=== PATIENT | female | born 1945 | race Caucasian/White ===

== ENCOUNTER 2019-08-08 13:27 | Outpatient (CLI) | payer MEDICARE, BC, SELFPAY ==
--- NOTE | ~2019-08-08 | MM_ITS ---
EXAMINATION: MM screening papi BI w harsh HISTORY: Screening mammogram TECHNIQUE: Craniocaudal and mediolateral oblique 3-D tomosynthesis images were obtained and synthetic 2-D images were generated. CAD analysis was submitted and interpreted. COMPARISON: 04/20/2018 diagnostic left digital mammogram 04/12/2018 bilateral digital screening mammogram 12/31/2016 diagnostic right digital mammogram and limited right breast ultrasound 12/14/2016 digital screening mammogram BREAST PARENCHYMAL COMPOSITION: There are scattered areas of fibroglandular density. FINDINGS: 2 biopsy markers are present in the right and on the right; history of prior benign right b reast biopsy. Bilateral benign calcifications. There is no evidence of suspicious mass, calcification, or architectural job captain ural distortion to suggest malignancy in either breast. There has been no suspicious interval change. IMPRESSION: 1. No mammographic evidence of malignancy. 2. Recommend routine screening mammography in one year. BI-RADS Category 2: Benign finding(s). Reviewed, dictated and finalized at location A. RITIES COUNSELOR
== END 2019-08-08 13:28 | disposition home or self-care (01) ==
LOC: ANHIMG 13:30
PROVIDERS: PCP Family Medicine; Visit Provider Obstetrics & Gynecology
DX: Z12.31 Encounter for screening mammogram for malignant neoplasm of breast (principal)
CPT/HCPCS: 77063; 77067

== ENCOUNTER → 2020-08-28 10:01 | Outpatient (CLI) | payer MEDICARE, BC, SELFPAY ==
--- NOTE | ~2020-08-28 | XR_ITS ---
EXAMINATION: XR chest 2V DATE: 08/28/2020 10:22 INDICATION: Cough. TECHNIQUE: Frontal and lateral views of the chest were obtained. COMPARISON: Chest single view 12/24/2017 FINDINGS: There is mild scarring at the lung apices. No pleural effusion or pneumothorax. The heart s ize is normal. Calcified right hilar lymph nodes are consistent with old granulomatous disease. There are surgical clips in right neck. IMPRESSION: 1. Mild scarring at the lung apices. Reviewed, dictated and finalized at location A. CTOR WORKFORCE MANAGEMENT
== END ==
PROVIDERS: PCP Family Medicine; Visit Provider Family Medicine
DX: R05 Cough (principal); R91.8 Other nonspecific abnormal finding of lung field
CPT/HCPCS: 71046

== ENCOUNTER → 2020-10-22 13:07 | Outpatient (CLI) | payer MEDICARE, BC, SELFPAY ==
--- NOTE | ~2020-10-22 | DEXA_ITS ---
Bone Density Report Name: Alayna Orourke Age: 75 Sex: Female Ethnicity: White Date of : 1945 Indication: postmenopausal; screening for osteoporosis; height loss; prior fracture; seizure disorder; hysterectomy; Referring Provider: RENETTA CHAPIN Study: Bone densitometry was performed. Exam Date: October 22, 2020 Accession number: [id number] Bone Density: Region BMD T-score Z-score Classification AP Spine (L1, L3, L4) 1.201 1.3 3.8 Normal Femoral Neck (Left) 0.630 -2.0 0.1 Osteopenia Total Hip (Left) 0.890 -0.4 1.4 Normal Femoral Neck (Right) 0.619 -2.1 0.0 Osteopenia Total Hip (Right) 0.793 -1.2 0.6 Osteopenia Total Hip Mean 0.842 -0.8 1.0 Normal World Health Organization criteria for BMD impression classify patients as: Normal (T-score at or above -1.0), Osteopenia (T-score between -1.0 and -2.5), or Osteoporosis (T-score at or below -2.5). 10-year Fracture Risk(1): Major Osteoporotic Fracture 18% Hip Fracture 4.2% Reported Risk Factors: [place] (), Neck BMD=0.619, BMI=36.5, previous fracture (1) FRAX(R) Version 3.08. Fracture probability calculated for an untreated patient. Fracture probability may be lower if the patient has received treatment. Clinical Information Provided by Patient: Has had a low trauma fracture Has used the following medications: Vitamin D, Calcium Has the following medical conditions: Any Seizure Disorders, Hysterectomy Patient maximum height was 66 Menopause Age: 40 No regular weight bearing exercise Drinks caffeinated beverages Onset of menses at age 12 Number of children 2 Impression: The patient has low bone mass, based on the Right Femoral Neck T-score. The patient has an estimated ten-year risk of hip fracture of 4.2% and an estimated ten-year risk of major fracture of 18%, based on the WHO FRAX algorithm. The patient has risk factors, including: previous fracture. Discussion: BONE DENSITY IS LOW AT ONE OR MORE SKELETAL SITES. THE PATIENT'S BMD AND CLINICAL RISK FACTORS CONTRIBUTE TO THIS PATIENT'S INCREASED RISK OF FRACTURE. This patient's lowest T-score is low at one or more skeletal sites. It meets the World Health Organization's (WHO) criteria for ?low bone mass? (T-score between -1.0 and -2.5). The patient's 10-year risk of hip fracture as calculated by FRAX exceeds the threshold where pharmacological therapy is recommended by the National Osteoporosis Foundation (NOF). However, all treatment decisions require clinical judgment and consideration of individual patient factors, including patient preferences, comorbidities, previous drug use, risk factors not captured in the FRAX model (e.g., frailty, falls, vitamin D deficiency, increased bone turnover, interval significant decline in bone density) and possible under or overestimation
--- NOTE | ~2020-10-22 | MM_ITS ---
EXAMINATION: MM screening papi BI w harsh HISTORY: Screening mammogram TECHNIQUE: Craniocaudal and mediolateral oblique 3-D tomosynthesis images were obtained and synthetic 2-D images were generated. CAD analysis was submitted and interpreted. COMPARISON: bilateral digital screening mammogram 04/20/2018 diagnostic left digital mammogram 04/12/2018 bilateral digital screening mammogram 12/31/2016 diagnostic right digital mammogram and limited right breast ultrasound 12/14/2016 bilateral digital screening mammogram BREAST PARENCHYMAL COMPOSITION: There are scattered areas of fibroglandular density. FINDINGS: There is a biopsy marker on the right; history of prior benign right breast biopsy. Scatter ed bilateral benign calcifications. There is no evidence of suspicious mass, calcification, or rl ectural distortion to suggest malignancy in either breast. There has been no suspicious interval posey ge. IMPRESSION: 1. No mammographic evidence of malignancy. 2. Recommend routine screening mammography in one year. BI-RADS Category 2: Benign finding(s). Reviewed, dictated and finalized at location A.
== END ==
PROVIDERS: PCP Family Medicine; Visit Provider Family Medicine
DX: Z12.31 Encounter for screening mammogram for malignant neoplasm of breast (principal); Z78.0 Asymptomatic menopausal state; M85.89 Other specified disorders of bone density and structure, multiple sites
CPT/HCPCS: 77063; 77067; 77080

== ENCOUNTER 2021-07-07 10:15 | Outpatient (CLI) | payer MEDICARE, BC, SELFPAY ==
--- NOTE | ~2021-07-07 | XR_ITS ---
XR elbow RT 2V DATE: 07/07/2021 10:44 INDICATION: Fall 3 weeks ago. Posterior elbow pain, swelling TECHNIQUE: AP and lateral views COMPARISON: 12/24/2017 right elbow FINDINGS: There is dorsal soft tissue swelling of the right elbow. Slight dorsal olecranon process sp ur. No fracture or dislocation or joint effusion is detected. No periosteal reaction or bone destruction. IMPRESSION: Dorsal soft tissue swelling; consider hematoma versus olecranon bursitis. Reviewed, dictated and finalized at location J. SPACE PHYSIOLOGICAL TECHNICIAN IMPRESSION: Dorsal soft tissue swelling; consider hematoma versus olecranon bur sitis.
== END 2021-07-07 10:16 | disposition home or self-care (01) ==
LOC: ANHIMG 10:22
PROVIDERS: PCP Family Medicine; Visit Provider Nurse Practitioner Gerontology
DX: M25.521 Pain in right elbow (principal); M79.89 Other specified soft tissue disorders
CPT/HCPCS: 73070

== ENCOUNTER 2021-10-21 11:06 | Observation (INO) | payer MEDICARE, BC, SELFPAY ==
[2021-10-21] VITALS (8 sets, daily range): BP systolic 119–145; BP diastolic 52–80; PULSE 71–88; RESP 12–20; TEMP 36–36.9; O2SAT 95–99; BMI 34.0
--- NOTE | 2021-10-21 | ECHO_ITS ---
Patient Info Name: Alayna Stoner Leveling Age: 76 years : 1945 Gender: Female Ht: 65 in Wt: 205 lbs BSA: 2.10 m2 HR: 72 bpm BP: 126 / 62 mmHg Heart Rhythm: Sinus Rhythm Technical Quality: Fair Exam Date: 10/21/2021 4:12 PM Exam Location: [facility] Patient Status: Outpatient Admit Date: 10/21/2021 Staff Ordering Physician: Baylee Pelayo APRN [employer] Solution Architect: Nely Swanson RDCS Attending Provider: Ana Luisa Ham MD Referring Physician: Gita KELLY; Exam Type: CA echo doppler color flow Study Info Indications - TIA Complete two-dimensional, color flow and Doppler transthoracic echocardiogram is performed. Summary 1. Complete two-dimensional, color flow and Doppler transthoracic echocardiogram is performed. 2. Left ventricular chamber dimension is normal. 3. Left ventricular systolic function is hyperdynamic, estimated at >70%. 4. There is mildly increased left ventricular wall thickness. 5. The left ventricular diastolic function is grade I diastolic dysfunction. 6. E/e' 24 is elevated. 7. Left atrial chamber dimension is moderately enlarged. 8. The aortic valve is possibly bicuspid. 9. There is moderate aortic valve sclerosis. 10. There is mild to moderate aortic valve stenosis with a peak velocity of 258 cm/s, mean gradient of 15 mmHg, and aortic valve area of 1.4 cm2. 11. The mitral valve has mildly calcified annulus. 12. There is trace tricuspid valve regurgitation. 13. No pulmonary hypertension, estimated pulmonary arterial systolic pressure is 36 mmHg. Left Ventricle E/e' 24 is elevated. Left ventricular chamber dimension is normal. Left ventricular systolic function is hyperdynamic, estimated at >70%. There is mildly increased left ventricular wall thickness. The left ventricular diastolic function is grade I diastolic dysfunction. Right Ventricle Right ventricular systolic function is normal and with normal TAPSE 2.2 cm. Right ventricular chamber dimension is normal. Left Atria Left atrial chamber dimension is moderately enlarged. Right Atria Right atrial chamber dimension is normal. Aortic Valve The aortic valve is possibly bicuspid. There is moderate aortic valve sclerosis. There is mild to moderate aortic valve stenosis with a peak velocity of 258 cm/s, mean gradient of 15 mmHg, and aortic valve area of 1.4 cm2. There is no aortic valve regurgitation. Pulmonic Valve There is no pulmonic regurgitation. Mitral Valve The mitral valve has mildly calcified annulus. There is no mitral valve stenosis. There is no mitral valve regurgitation. Tricuspid Valve There is trace tricuspid valve regurgitation. No pulmonary hypertension, estimated pulmonary arterial systolic pressure is 36 mmHg. Pericardium/Pleural There is no pericardial effusion. Inferior Vena Cava Normal inferior vena cava with >50% collapse upon inspiration consistent with normal right atrial pressure, 5 mmHg. Aorta The aortic root size at the sinus of Valsalva is normal. Left Ventricular Outflow Tract Name Value Normal LVOT 2D LVOT Diameter 2.0 cm LVOT Doppler LVOT Peak
--- NOTE | ~2021-10-21 | CT_ITS ---
EXAMINATION: CTA brain carotid DATE: 10/21/2021 13:36 INDICATION: Stroke. Dizziness. TECHNIQUE: Computed tomographic angiography (CTA) of the head was performed without and with 100 mL O mnipaque-350 intravenous contrast. CTA of the neck was performed with intravenous contrast. Automated exposure control and iterative reconstruction technique were employed. The dose-length product was 1 697.67 mGy-cm. Maximum intensity projection and volume rendered 3D-reconstructions were created by ruth collins technologist on a separate workstation. COMPARISON: Head CT 06/22/2019, brain MRI 09/20/2011 FINDINGS: HEAD CTA: There is no intracranial hemorrhage, acute infarction, or abnormal intracranial mass lesion . There is a small old infarct in right cerebellum. The ventricles are normal in size. There is mild mucosal thickening in the paranasal sinuses. There are small bilateral mastoid effusions. There are l ikely changes of ocular lens replacement surgeries. Left vertebral artery is dominant. There is moder ate stenosis of intracranial right vertebral artery. There is no significant stenosis of basilar thiago ry or the posterior cerebral arteries. There is mild stenosis of the intracranial internal carotid ar teries. There is no significant stenosis of the anterior or middle cerebral arteries. Anterior commun icating artery is normal. The posterior communicating arteries are normal. There is no aneurysm. NECK CTA: There is mild emphysema. There is mild scarring at the lung apices. Calcified right hilar a nd mediastinal lymph nodes are consistent with old adenomatous disease. A tracheostomy is noted. Ther e are changes of laryngectomy. There are no pathologically enlarged lymph nodes. There is plaque in t he proximal internal carotid arteries. Stenosis of the internal carotid arteries distal to the bulbs may be secondary to radiation therapy. There is 49% stenosis of the proximal right internal carotid a rtery relative to normal distal artery lumen diameter (NASCET criteria). There is 51% stenosis of the proximal left internal carotid artery relative to normal distal artery lumen diameter. There is mode rate stenosis of the proximal vertebral arteries. There is mild cervical spondylosis. There is mild c hronic anterior wedging of T2 vertebral body. IMPRESSION: 1. Small old infarct in right cerebellum. 2. Moderate stenosis of the vertebral arteries. 3. 49 % stenosis of the proximal right internal carotid artery relative to normal distal artery lumen diameter (NASCET criteria). 4. 51% stenosis of the proximal left internal carotid artery relative to normal distal artery lumen d iameter. Reviewed, dictated and finalized at location A. IMPRESSION: 1. Small old infarct in right cerebellum. 2. Moderate stenosis of the vertebral arteries. 3. 49 % stenosis of the proximal right internal carotid artery relative to norm al distal artery lumen diameter (NASCET criteria). 4. 51% stenosis of the proximal left internal carotid artery relative to normal distal artery lumen diameter.
--- NOTE | ~2021-10-21 | XR_ITS ---
EXAMINATION: XR chest 2V DATE: 10/21/2021 13:30 INDICATION: Stroke symptoms. TECHNIQUE: Frontal and lateral views of the chest were obtained. COMPARISON: Chest 2 views 08/28/2020 FINDINGS: There is no pneumonia, pleural effusion, or pneumothorax. The heart size is normal. Calcifi ed right hilar lymph nodes are consistent with old granulomas disc disease. There are surgical clips in right neck. There is an old healed fracture of left clavicle. Surgical clips in the right upper qu adrant are likely from cholecystectomy. IMPRESSION: 1. No acute cardiopulmonary disease. Reviewed, dictated and finalized at location A.
--- NOTE | 2021-10-21 11:12 | ECG_ITS ---
Measurements Intervals [place] Rate: 81 P: 43 HI: 161 QRS: 24 QRSD: 98 T: 31 QT: 377 QTc: 438 Interpretive Statements SINUS RHYTHM NO PREVIOUS ECG AVAILABLE FOR COMPARISON Electronically Signed On 10-21-2021 13:50:05 CDT by Suzy Randolph M.D.
[2021-10-21 12:50] LABS: Basophils Percent Auto 0.4 % (0.2-1.2); Eosinophils Absolute Auto 0.1 K/mm3 (0-0.3); Eosinophils Percent Auto 2.5 % (0-4.4); Hemoglobin 12.2 g/dL (12.0-15.0); Immature Granulocyte Absolute 0.02 K/mm3 (0.00-0.031); Immature Granulocyte Percent A 0.4 % (0-0.5); Lymphocytes Percent Auto 20.1 % (18.3-44.2); Mean Corpuscular HGB Conc 32.1 g/dl (32-36); Mean Corpuscular Hemoglobin 30.3 pg (26-34); Mean Corpuscular Volume 94.5 fl (80-100); Mean Platelet Volume 9.7 fl (7.4-10.4); Monocytes Absolute Auto 0.3 K/mm3 (0.1-0.6); Monocytes Percent Auto 6.7 % (2.6-8.5); Neutrophils Absolute Auto 3.1 K/mm3 (1.3-6.7); Neutrophils Percent Auto 69.9 % (45.5-73.1); Platelet Count Result 145 k/mm3 (150-375); Red Blood Count 4.02 M/mm3 (4.2-5.4); Red Cell Distribution Width 12.5 % (11.5-14.5); White Blood Count 4.5 K/mm3 (4.5-10.0)
[2021-10-21 13:00] LABS: Prothrombin Time 12.3 Seconds (11.1-14.7)
[2021-10-21 13:01] LABS: Partial Thromboplastin Time 27.3 SECONDS (22.3-36.8)
[2021-10-21 13:02] LABS: Alanine Aminotransferase 19 U/L (4-35); Albumin Level 4.3 g/dL (3.5-5.1); Alkaline Phosphatase 113 U/L (38-126); Anion Gap 5 mmol/L (8-16); Aspartate Amino Transferase 29 U/L (14-36); Bilirubin,Total 0.5 mg/dL (0.2-1.3); Blood Urea Nitrogen 18 mg/dL (7-17); Carbon Dioxide 35 mmol/L (22-30); Chloride 101 mmol/L (98-107); Estimated CRCL calculation 66 ml/min; Estimated Glomerular Filt Rate > 60; Glucose 116 mg/dL (65-110); Potassium 3.9 mmol/L (3.4-5.0); Sodium 141 mmol/L (137-145)
[2021-10-21 13:13] LABS: Troponin I < 0.012 ng/mL (0.000-0.034)
[2021-10-21 13:30] LABS: Add Urine Microscopic? NO; Appearance Urine Clear (Clear); Bilirubin Urine Negative (Negative); Blood Urine Negative (Negative); Color Urine Yellow (Yellow); Glucose Urine UA Negative (Negative); Ketones Urine Negative (Negative); Leukocyte Esterase Ur Negative LEU/UL (Negative); Nitrate Urine Negative (Negative); Protein Urine Negative (Negative); Specific Grav Ur 1.014 (1.001-1.035); Urobilinogen Urine Negative mg/dL (<2.0)
--- NOTE | 2021-10-21 14:17 | ED.DIZZY ---
HPI - Dizziness General Chief Complaint: Dizziness Stated Complaint: dizzy Time Seen by Provider: 10/21/21 12:01 History of Present Illness HPI Narrative: Patient is a 76-year-old female who presents ER with dizziness and leg weakness. Patient reports symptom onset was at 8:30 AM. She got up to start walking and she started feeling very off balance. She sat back down. She reports she has been unable to move both legs. She is dizzy with lower extremity weakness for about 90 minutes. No numbness or tingling. She reports she was having difficulty using her right arm as well. Unsure about her left arm. Patient uses a speaking valve from previous trach to speak but reports that her voice seemed off when she would try to talk to her daughter. Related Data Home Medications Medication Instructions Recorded Confirmed calcium carb-vit D3-minerals 600 tablet PO 07/24/20 09/30/21 mg calcium-200 unit tablet jsdcvktgacyd-pawligom-rxzibib-folic 1 tablet PO DAILY 07/24/20 09/30/21 acid 400 mcg-vit K1 20 mcg tablet vitamin B complex 1 tablet PO DAILY 07/24/20 09/30/21 Allergies Allergy/AdvReac Type Severity Reaction Status Date / Time No Known Allergies Allergy Verified 09/30/21 11:01 Review of Systems Review of Systems: All systems reviewed & are unremarkable except as noted in HPI and below Constitutional: Constitutional: Denies chills, Denies fever(s) and Denies weakness ENT: Reports dizziness, Denies nasal congestion and Denies sore throat Cardiovascular: Cardiovascular: Denies chest pain, Denies rapid heart rate and Denies radiating jaw, neck or arm pain Respiratory: Respiratory: Denies cough, Denies dyspnea and Denies wheezing Gastrointestinal: Gastrointestinal: Denies abdominal pain, Denies nausea and Denies vomiting Neurologic: Reports dizziness, Denies headache(s), Reports focal weakness and Denies numbness Comments: Slurred speech PMFSH Past Medical History Medical History Alcohol abuse Avitaminosis D Benign essential HTN ABHI (generalized anxiety disorder) Hypothyroidism (acquired) Iatrogenic hyperthyroidism Increased oropharyngeal secretions MDD (major depressive disorder), recurrent episode, moderate Seizures Throat cancer Throat cancer Tracheostomy in place Surgical History Surgical History H/O thyroidectomy Hx of hysterectomy Family History Family History Father Depression Sibling Depression Grandparent Cerebrovascular accident Social History Social History (Updated 09/30/21 @ 11:03 by Marisa Dougherty) Social History: Smoking packs per day: 1 Smoking cigarettes per day: 20.0 Years smoked: 20 Smoking pack-years: 20.00 Smoking status: Former smoker Tobacco type: cigarettes Second hand tobacco smoke exposure: No Smoking end date: 06/27/95 Alcohol intake: current Drinks per week: 3 Substance use: never Substance use type: does not use Gender identity (if verbalized by the patient): Female Sexual Orientation (if Verbalized by the Patient): Straight or Heterosexual Exam Narrative: GENERAL: Well-appearing, well-nourished, and in no acute distress. HEAD: Normocephalic, atraumatic. EYES: PERRL and EOMI. ENT: Mucous membranes moist. NECK: Tracheostomy with speaking valve. Chronic scarring. CHEST: Clear to auscultation. No respiratory distress. HEART: Regular rate and rhythm. No murmur heard. Normal peripheral pulses. ABDOMEN: Soft, nontender, nondistended. EXTREMITIES: Normal range of motion. No edema. SKIN: Warm, dry, no rash. NEURO: No upper or lower extremity drift. Cranial nerves II through XII intact. Sensation intact in upper and lower extremities. Alert and oriented x3. PSYCH: Normal mood and affect. Course Course Emergency Course: Resting comfortably, admit for observat
--- NOTE | 2021-10-21 15:01 | PM.IMHP ---
H&P: HPI History of Present Illness Date/Time: Patient was placed observation status for expected length of stay less than 23 hours for management, will plan to re-evaluate tomorrow for improvement. 10/21/21 15:01 Chief Complaint: Dizziness Narrative: Ms. Orourke is a 76-year-old female who presented emergency room with complaints of dizziness and bilateral lower extremity weakness. Patient states that this morning she was sitting in her chair during to get up to get a cup of coffee and her legs would not hold her up and the room was spinning around her. Patient states she then fell and had to have family members help her to a chair. Patient states that the dizziness and lower extremity weakness lasted for approximately 90 minutes. Patient states she feels that she could of had some weakness in her left upper extremity, because she tried to grab a chair when she was trying to get up and feels that she could not do so with her left arm. Patient states that she did have a similar episode of dizziness last week, but no weakness of any extremities. Patient denied any chest pain, abnormal shortness of breath, palpitations syncopal, or near syncopal episodes. Patient states she has chronic shortness of breath from COPD and Throat cancer with tracheostomy site. The patient states she has a known history throat cancer, hypertension, dyslipidemia, seizure disorder, and hypothyroidism. Review of Systems Review of Systems: A 12 point review of systems was completed patient all pertinent positive and negative per HPI the remainder are unremarkable. [facility] Past Medical History Medical History Alcohol abuse Avitaminosis D Benign essential HTN ABHI (generalized anxiety disorder) Hypothyroidism (acquired) Iatrogenic hyperthyroidism Increased oropharyngeal secretions MDD (major depressive disorder), recurrent episode, moderate Seizures Throat cancer Throat cancer Tracheostomy in place Surgical History Surgical History H/O thyroidectomy Hx of hysterectomy Family History Family History Father Depression Sibling Depression Grandparent Cerebrovascular accident Social History Social History (Updated 09/30/21 @ 11:03 by Marisa Dougherty) Social History: Smoking packs per day: 1 Smoking cigarettes per day: 20.0 Years smoked: 20 Smoking pack-years: 20.00 Smoking status: Former smoker Tobacco type: cigarettes Second hand tobacco smoke exposure: No Smoking end date: 06/27/95 Alcohol intake: current Drinks per week: 3 Substance use: never Substance use type: does not use Gender identity (if verbalized by the patient): Female Sexual Orientation (if Verbalized by the Patient): Straight or Heterosexual Meds Home Medications and Allergies Home Medications Medication Instructions Recorded Confirmed Type calcium carb-vit D3-minerals 600 tablet PO 07/24/20 09/30/21 History mg calcium-200 unit tablet hewmgjlajcaz-gfspknlq-zmrhbbi-folic 1 tablet PO DAILY 07/24/20 09/30/21 History acid 400 mcg-vit K1 20 mcg tablet vitamin B complex 1 tablet PO DAILY 07/24/20 09/30/21 History cholecalciferol (vitamin D3) 125 125 mcg PO DAILY #90 cap 10/23/20 09/30/21 Rx mcg (5,000 unit) capsule budesonide 160 mcg-glycopyr 9 2 inh INHALATION BID #10.7 g 02/20/21 09/30/21 Rx mcg-formot 4.8 mcg/actuation HFA inhaler lamotrigine 100 mg tablet 100 mg PO BID #180 tablet 02/20/21 09/30/21 Rx lamotrigine 200 mg tablet 200 mg PO TID #360 tablet 02/20/21 09/30/21 Rx omeprazole 40 mg capsule,delayed 40 mg PO BID #180 cap 02/20/21 09/30/21 Rx release paroxetine HCl 25 mg 25 mg PO DAILY #90 tablet 02/20/21 09/30/21 Rx tablet,extended release 24 hr rosuvastatin 5 mg tablet 5 mg PO DAILY #90 tablet 02/20/21 09/30/21 Rx levothyroxine 200 mcg tablet 200 mc
[2021-10-21] MEDS: BENZONATATE 100 MG CAPSULE PO (21:40)
[2021-10-22] VITALS (14 sets, daily range): BP systolic 106–147; BP diastolic 50–65; PULSE 71–109; RESP 18–20; TEMP 35.8–36.8; O2SAT 90–98
[2021-10-22 05:42] LABS: Basophils Percent Auto 0.3 % (0.2-1.2); Eosinophils Absolute Auto 0.1 K/mm3 (0-0.3); Eosinophils Percent Auto 3.9 % (0-4.4); Hematocrit 36.3 % (37.0-47.0); Hemoglobin 11.7 g/dL (12.0-15.0); Immature Granulocyte Absolute 0.01 K/mm3 (0.00-0.031); Immature Granulocyte Percent A 0.3 % (0-0.5); Lymphocytes Absolute Auto 0.79 K/mm3 (0.9-3.2); Lymphocytes Percent Auto 21.9 % (18.3-44.2); Mean Corpuscular HGB Conc 32.2 g/dl (32-36); Mean Corpuscular Hemoglobin 30.7 pg (26-34); Mean Corpuscular Volume 95.3 fl (80-100); Mean Platelet Volume 10.2 fl (7.4-10.4); Monocytes Absolute Auto 0.3 K/mm3 (0.1-0.6); Monocytes Percent Auto 8.6 % (2.6-8.5); Neutrophils Absolute Auto 2.4 K/mm3 (1.3-6.7); Platelet Count Result 135 k/mm3 (150-375); Red Blood Count 3.81 M/mm3 (4.2-5.4); Red Cell Distribution Width 12.6 % (11.5-14.5); White Blood Count 3.6 K/mm3 (4.5-10.0)
[2021-10-22 05:50] LABS: Anion Gap 3 mmol/L (8-16); Blood Urea Nitrogen 15 mg/dL (7-17); Calcium 8.6 mg/dL (8.4-10.2); Carbon Dioxide 34 mmol/L (22-30); Chloride 101 mmol/L (98-107); Cholesterol 145 mg/dL (0-200); Estimated CRCL calculation 66 ml/min; Estimated Glomerular Filt Rate > 60; Glucose 98 mg/dL (65-110); HDL Direct 42 mg/dL; Sodium 138 mmol/L (137-145); Triglycerides 109 mg/dL (<150)
[2021-10-22 06:01] LABS: LDL Cholesterol Direct 56 mg/dL
[2021-10-22] MEDS: BENZONATATE 100 MG CAPSULE PO ×4 (08:02→20:47)
[2021-10-22] MEDS: ENOXAPARIN 40 MG/0.4 ML SYRINGE SUB-Q (08:02)
[2021-10-22] MEDS: ASPIRIN 81 MG ENTERIC TABLET PO (08:02)
[2021-10-22] MEDS: TRIAMTERENE 37.5 MG/HCTZ 25 MG (MAXZIDE) TABLET 2 TAB PO (10:07)
[2021-10-22] MEDS: THERAPEUTIC MULTIVITAMINS/MINERALS TAB (*BKC) 1 TABLET PO (10:07)
[2021-10-22] MEDS: LORazepam (*CRX) 1 MG TABLET PO ×3 (10:07→16:29)
[2021-10-22] MEDS: ROSUVASTATIN 5 MG TABLET PO (10:07)
[2021-10-22] MEDS: levETIRAcetam 250 MG TABLET 750 MG PO ×2 (10:08→20:46)
[2021-10-22] MEDS: POTASSIUM CHLORIDE 20 MEQ TABLET 40 MEQ PO (10:08)
[2021-10-22] MEDS: CYANOCOBALAMIN 500 MCG TABLET PO (10:08)
--- NOTE | 2021-10-22 10:28 | P.PNIM_ITS ---
Progress Note: A&P Assessment and Plan (1) Brain TIA: Code(s): G45.9 - Transient cerebral ischemic attack, unspecified Status: Acute Assessment and Plan: Patient provided additional history this morning, and that she has had 2 such episodes of lower extremity weakness and dizziness resulting in falls over the past week. She denies loss of consciousness. She denies orthostasis. 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 Patient was noted to have 49% stenosis of right proximal internal carotid artery and 50% stenosis of the left proximal internal carotid artery. * Echo did not comment on intra-atrial septum. * Start aspirin 81. * Lipid panel this a.m., continue statin therapy. * MRI: patient has tracheostomy with magnetic component and we are unable to safely MRI. * Neurology consulted, advised we initiate aspirin, plavix, with follow-up in [address] Beauchamp. He advised based on patient's symptoms and normal echo, TIA was likely in the posterior circulation. * D/C tomorrow w/ follow up. (2) Aortic stenosis due to bicuspid aortic valve: Code(s): Q23.0 - Congenital stenosis of aortic valve; Q23.1 - Congenital insufficiency of aortic valve Status: Acute Assessment and Plan: * 10/21 echo showed: LVEF is 70% (hyperdynamic); aortic valve is possibly bicuspid, moderate AV sclerosis, mild to moderate aortic valve stenosis with peak velocity of 258 centimeters/seconds, mean gradient of 15 mmHg, and AV area of 1.4 cm2; left atrial chamber dimension is moderately enlarged. * Patient does not follow with Cardiology currently, which I advised she establish care, * Consult to cardiology. * She denies dyspnea with exertion, sharri syncope, or family history of sudden cardiac /known bicuspid valves. (3) Seizures: Code(s): R56.9 - Unspecified convulsions Status: Acute Assessment and Plan: * Patient states she has not recently had any seizures and she takes all medications without any difficulty. * She follows with Neurology at [facility]. * Will continue home lamotrigine and levetiracetam. (4) Benign essential HTN: Code(s): I10 - Essential (primary) hypertension Status: Acute Assessment and Plan: * Continue home antihypertensive regimen. * Patient is normotensive today, will continue to monitor. * Patient is mildly hypokalemic, however she is on a potassium-sparing diuretic, and takes potassium. We will continue to monitor her potassium. (5) History of throat cancer: Code(s): Z85.819 - Personal history of malignant neoplasm of unspecified site of lip, oral cavity, and pharynx Status: Acute Assessment and Plan: * Patient has a history of throat cancer, with tracheostomy present. She has recently been having complications and difficulties with swallowing, esophageal strictures. * Speech evaluated, recommended soft and bite size, level 6 * Patient is a former smoker, quit 5 years ago. (6) Hypothyroidism: Code(s): E03.9 - Hypothyroidism, unspecified Status: Acute Assessment and Plan: * TSH today * Continue home levothyroxine * Will continue to monitor Subjective Date/time seen: 10/22/21 10:28 Pt is a 76 year old female with history of hypertension,
--- NOTE | 2021-10-22 10:28 | PM.IMPN ---
Progress Note: A&P Assessment and Plan (1) Brain TIA: Code(s): G45.9 - Transient cerebral ischemic attack, unspecified Status: Acute Assessment and Plan: Patient provided additional history this morning, and that she has had 2 such episodes of lower extremity weakness and dizziness resulting in falls over the past week. She denies loss of consciousness. She denies orthostasis. 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 Patient was noted to have 49% stenosis of right proximal internal carotid artery and 50% stenosis of the left proximal internal carotid artery. Echo did not comment on intra-atrial septum. Start aspirin 81. Lipid panel this a.m., continue statin therapy. MRI: patient has tracheostomy with magnetic component and we are unable to safely MRI. Neurology consulted, advised we initiate aspirin, plavix, with follow-up in [address] Beauchamp. He advised based on patient's symptoms and normal echo, TIA was likely in the posterior circulation. D/C tomorrow w/ follow up. (2) Aortic stenosis due to bicuspid aortic valve: Code(s): Q23.0 - Congenital stenosis of aortic valve; Q23.1 - Congenital insufficiency of aortic valve Status: Acute Assessment and Plan: 10/21 echo showed: LVEF is 70% (hyperdynamic); aortic valve is possibly bicuspid, moderate AV sclerosis, mild to moderate aortic valve stenosis with peak velocity of 258 centimeters/seconds, mean gradient of 15 mmHg, and AV area of 1.4 cm2; left atrial chamber dimension is moderately enlarged. Patient does not follow with Cardiology currently, which I advised she establish care, Consult to cardiology. She denies dyspnea with exertion, sharri syncope, or family history of sudden cardiac /known bicuspid valves. (3) Seizures: Code(s): R56.9 - Unspecified convulsions Status: Acute Assessment and Plan: Patient states she has not recently had any seizures and she takes all medications without any difficulty. She follows with Neurology at [facility]. Will continue home lamotrigine and levetiracetam. (4) Benign essential HTN: Code(s): I10 - Essential (primary) hypertension Status: Acute Assessment and Plan: Continue home antihypertensive regimen. Patient is normotensive today, will continue to monitor. Patient is mildly hypokalemic, however she is on a potassium-sparing diuretic, and takes potassium. We will continue to monitor her potassium. (5) History of throat cancer: Code(s): Z85.819 - Personal history of malignant neoplasm of unspecified site of lip, oral cavity, and pharynx Status: Acute Assessment and Plan: Patient has a history of throat cancer, with tracheostomy present. She has recently been having complications and difficulties with swallowing, esophageal strictures. Speech evaluated, recommended soft and bite size, level 6 Patient is a former smoker, quit 5 years ago. (6) Hypothyroidism: Code(s): E03.9 - Hypothyroidism, unspecified Status: Acute Assessment and Plan: TSH today Continue home levothyroxine Will continue to monitor Subjective Date/time seen: 10/22/21 10:28 Pt is a 76 year old female with history of hypertension, seizures, throat cancer and hypothyroidism who presents to our care after an episode of transient weakness and dizziness. She reports an episode of extreme dizziness yesterday morning, and lower extremity weakness. She could not support her weight and subsequently fell to the ground. She did not lose consciousness. She reports family helped her to a chair and she came to the hospital. Symptoms resolved in approximately 90 minutes. 3 days ago, she reported
--- NOTE | 2021-10-22 12:08 | WPDNEURCNPN ---
Assessment and Plan Additional Plan 1 TIA with abnormal head and neck CTA 2 obtain the echocardiogram for further delineation of the treatment. Consult date: 10/22/21 HPI: Alayna Orourke is a 76 year old female admitted to the hospital through the emergency room for the complaints of dizziness along with the lower extremities weakness which started around 8:30 a.m. when she got up to start walking she felt very off balance she managed to sit down and has been unable to move her both lower extremities additionally she complained of dizziness the whole episode lasted for about 9 0 minutes she had no tingling and numbness in the lower extremities but she also mentioned that she was having some difficulties using her right upper extremity as well she was speaking using the speaking valve previous trach to speak Jacqueline on the conversation and she has been taking the medications as an outpatient only calcium supplement and vitamin supplements , she is not known to be allergic to any medication but she does have ongoing history of benign essential hypertension, generalized anxiety disorder, major depressive disorder, with recurrent episodes seizure disorder, and history of throat cancer with tracheostomy in place his smoking cigarettes per day is 20 with years smoked 20 and smoking pack years of 20 but she is a former smoker and currently drinks alcohol 3 drinks per week lab in the emergency room was within normal range, chest x-ray was negative but the CTA of the head and neck documented old infarct in right cerebellum, moderate stenosis of the vertebral arteries, and 49% stenosis of the proximal right internal carotid artery in addition to 51% stenosis of proximal left internal carotid artery, EKG was normal Review of Systems Review of Systems: All systems reviewed & are unremarkable except as noted in HPI and below PMFSH Past Medical History Medical History Alcohol abuse Avitaminosis D Benign essential HTN ABHI (generalized anxiety disorder) Hypothyroidism (acquired) Iatrogenic hyperthyroidism Increased oropharyngeal secretions MDD (major depressive disorder), recurrent episode, moderate Seizures Throat cancer Throat cancer Tracheostomy in place Surgical History Surgical History H/O thyroidectomy Hx of hysterectomy Family History Family History Father Depression Sibling Depression Grandparent Cerebrovascular accident Social History Social History Social History: Smoking packs per day: 1 Smoking cigarettes per day: 20.0 Years smoked: 20 Smoking pack-years: 20.00 Smoking status: Former smoker Tobacco type: cigarettes Second hand tobacco smoke exposure: No Smoking end date: 06/27/95 Alcohol intake: current Drinks per week: 16 Substance use: never Substance use type: does not use Gender identity (if verbalized by the patient): Female Sexual Orientation (if Verbalized by the Patient): Straight or Heterosexual Spiritual care concerns: No Meds Home Medications and Allergies Home Medications Medication Instructions Recorded Confirmed Type lamotrigine 100 mg tablet 100 mg PO BID #180 tablet 02/20/21 10/21/21 Rx lamotrigine 200 mg tablet 200 mg PO TID #360 tablet 02/20/21 10/21/21 Rx omeprazole 40 mg capsule,delayed 40 mg PO BID #180 cap 02/20/21 10/21/21 Rx release paroxetine HCl 25 mg 25 mg PO DAILY #90 tablet 02/20/21 10/21/21 Rx tablet,extended release 24 hr rosuvastatin 5 mg tablet 5 mg PO DAILY #90 tablet 02/20/21 10/21/21 Rx levothyroxine 200 mcg tablet 200 mcg PO .QOD #45 tablet 06/25/21 10/21/21 Rx lorazepam 1 mg tablet 1 mg PO TID #90 tablet 07/07/21 10/21/21 Rx triamterene 75 See Rx Instructions .ROUTE 08/05/21 10/21/21 Rx mg-hydrochlorothiazide 50 mg tablet .COMPLEX #90 tabl
[2021-10-22] MEDS: lamoTRIgine 100 MG TABLET 200 MG PO (12:27)
--- NOTE | 2021-10-22 12:45 | PHAR ---
HOME MED VERIFIED PAXIL 25MG ER TABLET 1 DAILY
--- NOTE | 2021-10-22 13:35 | PCSTNOTE ---
Please refer to the Bedside Swallow Evaluation in the EMR. Please note, silent aspiration cannot be ruled out at bedside.
--- NOTE | 2021-10-22 14:23 | PC.NURSE ---
On 10/22/21, the student, [Mitchell Rose], provided care and completed [facility] documentation on this patient. I have reviewed the student's documentation and agree with the findings.
--- NOTE | 2021-10-22 16:45 | PM.CNCAR ---
Assessment and Plan Assessment and plan (1) Aortic stenosis due to bicuspid aortic valve: Code(s): Q23.0 - Congenital stenosis of aortic valve; Q23.1 - Congenital insufficiency of aortic valve Status: Acute Assessment and Plan: Patient found to have [id number] aortic stenosis, possibly a bicuspid valve. No apparent involvement of the ascending aorta. Appears asymptomatic. Counseled patient about aortic stenosis, possible progression over her lifetime, need for follow-up recommended echo in 1 year my office will call the patient to schedule a follow-up appointment with me in the office (2) Brain TIA: Code(s): G45.9 - Transient cerebral ischemic attack, unspecified Status: Acute Assessment and Plan: admitted with a TIA, found to have a small cerebellar infarct and moderate carotid disease. Started on aspirin Consider increasing the rosuvastatin dose, even though her LDL cholesterol is good, since she has moderate carotid disease and a stroke (3) Benign essential HTN: Code(s): I10 - Essential (primary) hypertension Status: Acute Assessment and Plan: blood pressure is reasonably controlled for now (4) Hyperlipidemia: Code(s): E78.5 - Hyperlipidemia, unspecified Status: Acute Assessment and Plan: LDL cholesterol in the 50s taking rosuvastatin 5 mg daily (5) Carotid stenosis, bilateral: Code(s): I65.23 - Occlusion and stenosis of bilateral carotid arteries Status: Acute Assessment and Plan: Moderate bilateral carotid disease as well as disease of the vertebrals History of Present Illness History of Present Illness Consult date/time: 10/22/21 16:45 Requesting physician: Jf Bell MD Consult reason: Other (Bicuspid aortic, aortic stenosis) Reason For Visit: TIA Narrative: Alayna Orourke is a 76 year old female whom I was asked to see at the request of Dr. Bell for my advice and opinion regarding her a bicuspid aortic valve and aortic stenosis, in consultation. She has a history of hypertension, hyperlipidemia, throat cancer status post tracheostomy, seizures. The patient was admitted 10/22/2021 with lower extremity weakness and dizziness thought to be secondary to a TIA. CT of the brain showed and old right cerebellar infarct, and CT of the carotids showed moderate disease. Echo showed Moderate aortic stenosis with a aortic valve area 1. 4 cm2 and a mean gradient of 15 mmHg, with possible bicuspid aortic valve disease. EF was greater than 70%. Patient has no history of any heart disease or heart murmur. Denies any chest pain pressure tightness. Has chronic SR blamed on COPD. Review of Systems Constitutional: Constitutional: Reports weakness Eyes: Eyes: Reports no additional eye complaints ENT: Denies epistaxis Cardiovascular: Cardiovascular: Denies chest pain, Denies leg edema, Denies lightheadedness and Denies palpitations Respiratory: Respiratory: Reports cough and Reports dyspnea on exertion (Chronic SR climbing stairs etc) Gastrointestinal: Gastrointestinal: Denies abdominal pain and Denies hematochezia Genitourinary: Genitourinary: Denies hematuria Musculoskeletal: Musculoskeletal: Reports no additional musculoskeletal complaints Integumentary/Breasts: Skin/Breast: Denies rash Neurologic: Denies Abnormal speech present, Denies confusion and Reports vertigo Comments: Patient states she is dizzy all the time , things seem to spin and she loses her balance. Occasionally uses a walker. No falls. Psychiatric: Psychiatric: Denies behavioral changes [facility] Past Medical History Medical History (Updated 10/22/21 @ 17:18 by Suzy Randolph MD) Alcohol abuse Avitaminosis D Benign essential HTN Carotid stenosis, bilateral ABHI (generalized anxiety disorder) Hyperlipidemia Hypothyroidism (acquired) Iatrogenic hyperthyroidism Increased oropharyngeal secretions MDD (m
[2021-10-22] MEDS: lamoTRIgine 100 MG TABLET 300 MG PO (20:46)
[2021-10-22] MEDS: MELATONIN 5 MG TABLET 10 MG PO (20:47)
[2021-10-23] VITALS: BP 145/56; PULSE 79; PULSE 81; RESP 20; TEMP 35.9; O2SAT 93
[2021-10-23 04:00] VITALS: BP 125/48; PULSE 76; PULSE 78; RESP 20; TEMP 36; O2SAT 92
[2021-10-23 05:33] VITALS: BP 125/48; PULSE 78; RESP 20; TEMP 36; O2SAT 92
[2021-10-23 06:00] LABS: Basophils Percent Auto 0.3 % (0.2-1.2); Eosinophils Absolute Auto 0.1 K/mm3 (0-0.3); Eosinophils Percent Auto 3.4 % (0-4.4); Hematocrit 35.6 % (37.0-47.0); Hemoglobin 11.8 g/dL (12.0-15.0); Immature Granulocyte Absolute 0.02 K/mm3 (0.00-0.031); Immature Granulocyte Percent A 0.6 % (0-0.5); Lymphocytes Absolute Auto 0.82 K/mm3 (0.9-3.2); Mean Corpuscular HGB Conc 33.1 g/dl (32-36); Mean Corpuscular Hemoglobin 31.1 pg (26-34); Mean Corpuscular Volume 93.9 fl (80-100); Mean Platelet Volume 10.4 fl (7.4-10.4); Monocytes Absolute Auto 0.3 K/mm3 (0.1-0.6); Monocytes Percent Auto 7.6 % (2.6-8.5); Neutrophils Absolute Auto 2.3 K/mm3 (1.3-6.7); Neutrophils Percent Auto 65.1 % (45.5-73.1); Platelet Count Result 135 k/mm3 (150-375); Red Blood Count 3.79 M/mm3 (4.2-5.4); Red Cell Distribution Width 12.4 % (11.5-14.5); White Blood Count 3.6 K/mm3 (4.5-10.0)
[2021-10-23 06:10] LABS: Alanine Aminotransferase 16 U/L (4-35); Albumin Level 3.8 g/dL (3.5-5.1); Alkaline Phosphatase 93 U/L (38-126); Anion Gap 2 mmol/L (8-16); Aspartate Amino Transferase 26 U/L (14-36); Bilirubin,Total 0.5 mg/dL (0.2-1.3); Blood Urea Nitrogen 15 mg/dL (7-17); Calcium 8.9 mg/dL (8.4-10.2); Carbon Dioxide 32 mmol/L (22-30); Chloride 105 mmol/L (98-107); Estimated CRCL calculation 59 ml/min; Estimated Glomerular Filt Rate > 60; Glucose 101 mg/dL (65-110); Potassium 3.5 mmol/L (3.4-5.0); Sodium 139 mmol/L (137-145)
[2021-10-23] MEDS: LEVOTHYROXINE SODIUM 100 MCG TABLET 200 MCG PO (06:18)
[2021-10-23 08:00] VITALS: PULSE 75
[2021-10-23] MEDS: levETIRAcetam 250 MG TABLET 750 MG PO (08:30)
[2021-10-23] MEDS: THERAPEUTIC MULTIVITAMINS/MINERALS TAB (*BKC) 1 TABLET PO (08:30)
[2021-10-23] MEDS: ROSUVASTATIN 5 MG TABLET PO (08:30)
[2021-10-23] MEDS: LORazepam (*CRX) 1 MG TABLET PO (08:30)
[2021-10-23] MEDS: ASPIRIN 81 MG ENTERIC TABLET PO (08:30)
[2021-10-23] MEDS: TRIAMTERENE 37.5 MG/HCTZ 25 MG (MAXZIDE) TABLET 2 TAB PO (08:30)
[2021-10-23] MEDS: CYANOCOBALAMIN 500 MCG TABLET PO (08:31)
[2021-10-23] MEDS: CLOPIDOGREL BISULFATE 75 MG TABLET PO (08:31)
[2021-10-23] MEDS: BENZONATATE 100 MG CAPSULE PO (08:31)
[2021-10-23] MEDS: ENOXAPARIN 40 MG/0.4 ML SYRINGE SUB-Q (08:31)
--- NOTE | 2021-10-23 08:31 | PM.PNCARD ---
Progress Note: A&P Assessment and Plan (1) Aortic stenosis due to bicuspid aortic valve: Code(s): Q23.0 - Congenital stenosis of aortic valve; Q23.1 - Congenital insufficiency of aortic valve Status: Acute Assessment and Plan: Patient found to have [id number] aortic stenosis, possibly a bicuspid valve. No apparent involvement of the ascending aorta. Appears asymptomatic. Counseled patient about aortic stenosis, possible progression over her lifetime, need for follow-up Recommended echo in 1 year Will follow up with Dr. Randolph in 2-3 months (2) Brain TIA: Code(s): G45.9 - Transient cerebral ischemic attack, unspecified Status: Acute Assessment and Plan: admitted with a TIA, found to have a small cerebellar infarct and moderate carotid disease. Started on aspirin Consider increasing the rosuvastatin dose, even though her LDL cholesterol is good, since she has moderate carotid disease and a stroke (3) Benign essential HTN: Code(s): I10 - Essential (primary) hypertension Status: Acute Assessment and Plan: blood pressure is reasonably controlled for now (4) Hyperlipidemia: Code(s): E78.5 - Hyperlipidemia, unspecified Status: Acute Assessment and Plan: LDL cholesterol in the 50s taking rosuvastatin 5 mg daily (5) Carotid stenosis, bilateral: Code(s): I65.23 - Occlusion and stenosis of bilateral carotid arteries Status: Acute Assessment and Plan: Moderate bilateral carotid disease as well as disease of the vertebrals Subjective Date/time seen: 10/23/21 08:31 Cardiology follow up for aortic stenosis Feeling well this morning and is free from complaints. She denies and chest pain or shortness of breath. Plan for discharge today, OK from a cardiac perspective. Review of Systems Constitutional: Constitutional: Reports weakness Eyes: Eyes: Reports no additional eye complaints ENT: Reports vertigo and Denies epistaxis Cardiovascular: Cardiovascular: Denies chest pain, Denies leg edema, Denies lightheadedness, Denies palpitations and Reports dyspnea on exertion (Chronic SR climbing stairs etc) Respiratory: Respiratory: Reports cough and Reports dyspnea on exertion (Chronic SR climbing stairs etc) Gastrointestinal: Gastrointestinal: Denies abdominal pain and Denies hematochezia Genitourinary: Genitourinary: Denies hematuria Musculoskeletal: Musculoskeletal: Reports no additional musculoskeletal complaints Integumentary/Breasts: Skin/Breast: Denies rash Neurologic: Denies Abnormal speech present, Denies behavioral changes, Denies confusion, Reports vertigo and Reports weakness Psychiatric: Psychiatric: Denies behavioral changes and Denies confusion Endocrine: Endocrine: Denies palpitations Exam Narrative: pleasant older lady sitting in the chair Const: General: comfortable and no acute distress; No confusion Orientation/consciousness: No confusion HENMT: General nose exam: no epistaxis Mouth: Yes moist mucous membranes Eyes: EOM: EOMs intact bilaterally Neck: Neck: supple and no JVD Thyroid: thyroid normal Carotids: bruit Other: Tracheostomy present. Resp: Effort & Inspection: normal respiratory effort Auscultation: clear to auscultation bilaterally Cardio: Rate: regular rate Rhythm: regular rhythm Heart sounds: Murmur heart sound present ( 2/6 harsh systolic murmur upper sternal borders) GI: Inspection: non-distended Skin: General skin exam: normal color and no rashes or lesions noted Neuro: General: No confusion Cognition (Neuro): normal cognition Speech: normal speech and No Abnormal speech present Extrem: General: no edema and no pedal edema Other: Psych: Mental Status: mental status grossly normal Affect: normal affect Objective Data Vital Signs Vital Signs: Vital Signs - 24 hr 10/22/21 10:10 10/22/21 12:00 10/22/21 13:05 Temperature 36.8 C 36.3 C L P
[2021-10-23] MEDS: lamoTRIgine 100 MG TABLET 300 MG PO (08:32)
[2021-10-23 10:00] VITALS: BP 152/75; PULSE 87; RESP 17; TEMP 36.1; O2SAT 96
--- NOTE | 2021-10-23 10:14 | PM.DS ---
DS: Admitting Diagnosis Discharge Date 10/23/21 1200 Admitting Diagnosis TIA DS: Discharge Diagnosis Discharge Diagnosis (1) Brain TIA: Code(s): G45.9 - Transient cerebral ischemic attack, unspecified Status: Acute Assessment and Plan: Patient presented to this hospital on 10/21 after transient episode of dizziness, lower extremity weakness, and a fall, without loss of consciousness. And that she has had 2 such episodes of lower extremity weakness and dizziness resulting in falls over the past week. She denies orthostasis. 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 Patient was noted to have 49% stenosis of right proximal internal carotid artery and 50% stenosis of the left proximal internal carotid artery. Echo did not comment on intra-atrial septum. Lipid panel showed triglycerides of 109, LDL 56, HDL 42. Patient will continue statin therapy upon discharge. MRI: patient has tracheostomy with magnetic component and we are unable to safely MRI. Neurology advised to initiate aspirin, plavix for a period of 6 weeks, with follow-up in 6 weeks with her own neurologist. (2) Aortic stenosis due to bicuspid aortic valve: Code(s): Q23.0 - Congenital stenosis of aortic valve; Q23.1 - Congenital insufficiency of aortic valve Status: Acute Assessment and Plan: 10/21 echo showed: LVEF is 70% (hyperdynamic); aortic valve is possibly bicuspid, moderate AV sclerosis, mild to moderate aortic valve stenosis with peak velocity of 258 centimeters/seconds, mean gradient of 15 mmHg, and AV area of 1.4 cm2; left atrial chamber dimension is moderately enlarged. Patient does not follow with Cardiology currently, cardiology was consulted, provided patient education on bicuspid valves, follow up echo in 1 year. Patient to establish outpatient care with Cardiology. She denies dyspnea with exertion, sharri syncope, or family history of sudden cardiac /known bicuspid valves. Educated the patient on symptoms of worsening aortic stenosis to include shortness of breath, syncope, chest pain. (3) Seizures: Code(s): R56.9 - Unspecified convulsions Status: Acute Assessment and Plan: Patient states she has not recently had any seizures and she takes all medications without any difficulty. Will continue home lamotrigine and levetiracetam upon discharge, and follow up with her Neurologist in [place]. (4) Benign essential HTN: Code(s): I10 - Essential (primary) hypertension Status: Acute Assessment and Plan: Continue home antihypertensive regimen. Patient is mildly hypokalemic, however she is on a potassium-sparing diuretic, and takes potassium. Potassium normalized during her stay. (5) History of throat cancer: Code(s): Z85.819 - Personal history of malignant neoplasm of unspecified site of lip, oral cavity, and pharynx Status: Acute Assessment and Plan: Patient has a history of throat cancer, with tracheostomy present. She has recently been having complications and difficulties with swallowing, esophageal strictures. Of note, patient's tracheostomy contains a magnetic component which prevents her from obtaining an MRI. I informed the patient of this, as she was unaware. Continue to follow with ENT. (6) Hypothyroidism: Code(s): E03.9 - Hypothyroidism, unspecified Status: Acute Assessment and Plan: TSH WNL, will continue home levothyroxine dose upon discharge. (7) Pancytopenia: Code(s): D61.818 - Other pancytopenia Status: Acute Assessment and Plan: Patient noted to have mild pancytopenia during her stay. Currently asymptomatic. Repeat CBC in 4 weeks with Primary Care Provider. DS: Summary Hospital Course Reason for hospitalization: TIA Hospital Course: See above fo
== END 2021-10-23 11:08 | disposition home or self-care (01) ==
LOC: ANHED 14:25 → ANH2MED 14:37
PROVIDERS: Nurse Practitioner Adult Health; Student in an Organized Health Care Education/Training Program; Admitting Provider Internal Medicine; Emergency Provider Emergency Medicine; PCP Family Medicine; Visit Provider Internal Medicine
DX: G45.9 Transient cerebral ischemic attack, unspecified (principal); I35.0 Nonrheumatic aortic (valve) stenosis; I10 Essential (primary) hypertension; D61.818 Other pancytopenia; E55.9 Vitamin D deficiency, unspecified; E03.9 Hypothyroidism, unspecified; E05.80 Other thyrotoxicosis without thyrotoxic crisis or storm; R56.9 Unspecified convulsions; F32.9 Major depressive disorder, single episode, unspecified; F41.1 Generalized anxiety disorder; F10.10 Alcohol abuse, uncomplicated; Z93.0 Tracheostomy status; Z87.891 Personal history of nicotine dependence; Z85.89 Personal history of malignant neoplasm of other organs and systems; Z86.73 Personal history of transient ischemic attack (TIA), and cerebral infarction without residual deficits
CPT/HCPCS: 36415; 70496; 70498; 71046; 80048; 80053; 80061; 81003; 83735; 84443; 84484; 85025; 85610; 85730; 92610; 93005; 93306; 96372; 97161; 97165; 99285; A9270; G0378; J1650; Q9967

== ENCOUNTER 2021-10-27 11:35 | Emergency (ER) | payer MEDICARE, BC, SELFPAY ==
--- NOTE | ~2021-10-27 | CT_ITS ---
EXAMINATION: CT brain wo con DATE: 10/27/2021 13:57 INDICATION: gen weakness TECHNIQUE: Computed tomography (CT) of the head was performed without intravenous contrast. The mA wa s adjusted according to patient size. Iterative reconstruction technique was employed. The dose-lengt h product was 605.33 mGy-cm. COMPARISON: 10/21/21 FINDINGS: No acute intracranial hemorrhage or extra-axial fluid collection. No hydrocephalus, mass, or herniation. No acute ischemic infarct. Unremarkable dural venous sinus attenuation. No acute osseous abnormality. Small right and trace left mastoid effusions, otherwise the aerated spaces are clear. Old right cerebellar infarct. IMPRESSION: No acute intracranial process. Reviewed, dictated and finalized at location K.
--- NOTE | ~2021-10-27 | XR_ITS ---
EXAMINATION: XR chest 2V DATE: 10/27/2021 14:14 INDICATION: Weakness. TECHNIQUE: Frontal and lateral views of the chest were obtained. COMPARISON: Chest 2 views 10/21/2021 FINDINGS: There is eventration of anterior right hemidiaphragm. No pneumonia, pleural effusion or pne umothorax. The heart size is normal. Calcified right hilar lymph nodes are consistent with old granul omatous disease. There are surgical clips in the neck. There is plate and screw fixation of left matthew ral diaphysis. There is an old healed fracture of proximal left humerus. IMPRESSION: 1. No acute cardiopulmonary disease. Reviewed, dictated and finalized at location B.
--- NOTE | ~2021-10-27 | CT_ITS ---
EXAMINATION: CTA neck DATE: 10/27/2021 15:46 INDICATION: Generalized weakness. TECHNIQUE: Computed tomographic angiography (CTA) of the neck was performed with 100 mL Omnipaque-350 intravenous contrast. Automated exposure control and iterative reconstruction technique were employe d. The dose-length product was 557.17 mGy-cm. Maximum intensity projection 3D-reconstructions were cr eated by the technologist on a separate workstation. COMPARISON: Neck CTA 10/21/2021 FINDINGS: There is mild emphysema. There is mild scarring at the lung apices. There are changes of la ryngectomy. There are no pathologically enlarged lymph nodes. There is moderate stenosis of proximal right vertebral artery. There is moderate stenosis of distal right vertebral artery. There is mild s tenosis of left vertebral artery. There is plaque in the proximal internal carotid arteries. There is focal stenosis of the internal carotid arteries distal to the bulbs that may be secondary to radiati on therapy. There is 36% stenosis of the proximal right internal carotid artery relative to normal di stal artery lumen diameter (NASCET criteria). There is 56% stenosis of the proximal left internal car otid artery relative to normal distal artery lumen diameter. There is mild stenosis of the intracrani al internal carotid arteries. There is mild chronic anterior wedging of T2 vertebral body. There is m ild cervical spondylosis. There are small bilateral mastoid effusions. IMPRESSION: 1. 36% stenosis of the proximal right internal carotid artery relative to normal distal artery lumen diameter (NASCET criteria). 2. 56% stenosis of the proximal left internal carotid artery relative to normal distal artery lumen d iameter. 3. Moderate stenosis of right vertebral artery. Reviewed, dictated and finalized at location B. IMPRESSION: 1. 36% stenosis of the proximal right internal carotid artery relative to traci l distal artery lumen diameter (NASCET criteria). 2. 56% stenosis of the proximal left internal carotid artery relative to normal distal artery lumen diameter. 3. Moderate stenosis of right vertebral artery.
--- NOTE | ~2021-10-27 | XR_ITS ---
EXAMINATION: XR hip LT 2V w AP pelvis DATE: 10/27/2021 14:14 INDICATION: Leg weakness. TECHNIQUE: An anteroposterior view of the pelvis and 2 views of left hip were obtained. COMPARISON: Left hip radiograph 09/06/2005 FINDINGS: There is lumbar dextrocurvature and severe spondylosis. No fracture. There is moderate oste oarthritis of the hips. IMPRESSION: 1. Moderate osteoarthritis of the hips. Reviewed, dictated and finalized at location B.
--- NOTE | 2021-10-27 11:36 | ECG_ITS ---
Measurements Intervals [place] Rate: 91 P: 51 SD: 184 QRS: 38 QRSD: 89 T: 44 QT: 345 QTc: 424 Interpretive Statements SINUS RHYTHM BASELINE ARTIFACT- I, III, AVL NORMAL ECG Electronically Signed On 10-27-2021 12:51:26 CDT by Parish Almanzar D.O.
[2021-10-27 11:45] VITALS: BP 114/71; PULSE 93; RESP 18; TEMP 36.6; O2SAT 95
[2021-10-27 11:55] LABS: Basophils Percent Auto 0.3 % (0.2-1.2); Eosinophils Absolute Auto 0.2 K/mm3 (0-0.3); Eosinophils Percent Auto 2.2 % (0-4.4); Hematocrit 36.5 % (37.0-47.0); Hemoglobin 11.8 g/dL (12.0-15.0); Immature Granulocyte Absolute 0.03 K/mm3 (0.00-0.031); Immature Granulocyte Percent A 0.4 % (0-0.5); Lymphocytes Percent Auto 15.8 % (18.3-44.2); Mean Corpuscular HGB Conc 32.3 g/dl (32-36); Mean Corpuscular Hemoglobin 30.5 pg (26-34); Mean Corpuscular Volume 94.3 fl (80-100); Mean Platelet Volume 10.2 fl (7.4-10.4); Monocytes Absolute Auto 0.4 K/mm3 (0.1-0.6); Neutrophils Absolute Auto 5.2 K/mm3 (1.3-6.7); Neutrophils Percent Auto 75.3 % (45.5-73.1); Platelet Count Result 138 k/mm3 (150-375); Red Blood Count 3.87 M/mm3 (4.2-5.4); Red Cell Distribution Width 12.8 % (11.5-14.5)
--- NOTE | 2021-10-27 11:57 | ED.BACK ---
HPI - Back Pain/Injury General Chief Complaint: Weakness Stated Complaint: SOB Source: patient, family, RN notes reviewed and old records reviewed Mode of arrival: ambulatory Limitations: no limitations History of Present Illness HPI Narrative: 76-year-old female with history of throat cancer that was recently admitted for evaluation of TIA presented to the emergency department for evaluation of increased generalized weakness. Patient states that when she was discharged on Tuesday she was able to ambulate on her own. Patient states this morning she was also feeling fine. Patient states she did have a period where she had increased generalized weakness where both arms and both legs are affected. Upon arrival to the emergency department patient states that her symptoms have improved. Patient denies any complaints in the ED. Related Data Home Medications Medication Instructions Recorded Confirmed Breztri Aerosphere 2 inh INHALATION BID 10/21/21 10/21/21 Multivitamin Women 50 Plus 1 tablet PO DAILY 10/21/21 10/21/21 ascorbic acid (vitamin C) 1 g PO DAILY 10/21/21 10/21/21 benzonatate 100 mg PO QID 10/21/21 10/21/21 calcium carbonate [Calcium 600] 600 mg PO DAILY 10/21/21 10/21/21 cholecalciferol (vitamin D3) 125 mcg PO WEEKLY 10/21/21 10/21/21 cyanocobalamin (vitamin B-12) 500 mcg PO DAILY 10/21/21 10/21/21 melatonin 10 mg PO HS 10/21/21 10/21/21 valerian root 500 mg PO HS 10/21/21 10/21/21 Allergies Allergy/AdvReac Type Severity Reaction Status Date / Time No Known Allergies Allergy Verified 10/21/21 16:05 Review of Systems Review of Systems: CONSTITUTIONAL: Denies fever, chills, or sweats. EYES: Denies visual changes, redness, or discharge. ENT: Denies rhinorrhea, congestion, sore throat, or otalgia. CARDIOVASCULAR: Denies chest pain, palpitations, or edema. RESPIRATORY: Denies cough or dyspnea. GASTROINTESTINAL: Denies abdominal pain, nausea, vomiting, or diarrhea. GENITOURINARY: Denies dysuria or hematuria. SKIN: Denies rash or itching. MUSCULOSKELETAL: Patient reports acute on chronic left hip pain NEUROLOGIC: See [facility] Past Medical History Medical History (Updated 10/27/21 @ 16:22 by Landon Menendez MD) Alcohol abuse Avitaminosis D Benign essential HTN Carotid stenosis, bilateral ABHI (generalized anxiety disorder) Hyperlipidemia Hypothyroidism (acquired) Iatrogenic hyperthyroidism Increased oropharyngeal secretions MDD (major depressive disorder), recurrent episode, moderate Seizures Throat cancer Throat cancer Tracheostomy in place Surgical History Surgical History H/O thyroidectomy Hx of hysterectomy Family History Family History Father Depression Sibling Depression Grandparent Cerebrovascular accident Social History Social History (Updated 10/22/21 @ 17:24 by Suzy Randolph MD) Social History: , lives alone, 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 HEAD: normocephalic, atraumatic. EYES: PERRLA/EOMI, conjunctivae clear. NOSE: Normal no drainage THROAT: Trach in place NECK: Supple. No adenopathy, no masses. RESPIRATORY: Airway patent, respirations nonlabored. Clear to auscultation bilaterally, no rales, rhonchi, wheezing. CARDIOVASCULAR: Regular rate and rhythm without murmurs rubs or gallop
[2021-10-27 12:04] LABS: Alanine Aminotransferase 25 U/L (4-35); Albumin Level 3.9 g/dL (3.5-5.1); Alkaline Phosphatase 99 U/L (38-126); Anion Gap 5 mmol/L (8-16); Aspartate Amino Transferase 32 U/L (14-36); Bilirubin,Total 0.5 mg/dL (0.2-1.3); Blood Urea Nitrogen 23 mg/dL (7-17); Carbon Dioxide 30 mmol/L (22-30); Chloride 104 mmol/L (98-107); Estimated CRCL calculation 67 ml/min; Estimated Glomerular Filt Rate > 60; Glucose 108 mg/dL (65-110); Potassium 3.5 mmol/L (3.4-5.0); Sodium 139 mmol/L (137-145)
[2021-10-27 12:05] LABS: INR 1.1; Prothrombin Time 13.5 Seconds (11.1-14.7)
[2021-10-27 12:06] LABS: Partial Thromboplastin Time 35.9 SECONDS (22.3-36.8)
[2021-10-27 12:30] LABS: Appearance Urine Clear (Clear); Bilirubin Urine Negative (Negative); Blood Urine Negative (Negative); Color Urine Yellow (Yellow); Glucose Urine UA Negative (Negative); Ketones Urine Negative (Negative); Leukocyte Esterase Ur Negative LEU/UL (Negative); Nitrate Urine Negative (Negative); Protein Urine Negative (Negative); Urobilinogen Urine 0.2 mg/dL (<2.0)
[2021-10-27 12:33] LABS: RBC Urine 0-2 /hpf (0-2); Squamous Epithelial Cell Urine Rare /hpf (Few); WBC Urine 0-3 /hpf
[2021-10-27 12:45] LABS: Add Urine Microscopic? YES
[2021-10-27 12:53] VITALS: BP 130/60; PULSE 81; RESP 16; O2SAT 94
[2021-10-27 14:04] VITALS: BP 131/60; PULSE 83; RESP 18; O2SAT 98
[2021-10-27 14:30] LABS: Influenza A QL RT-PCR Negative (Negative); Influenza B QL RT-PCR Negative (Negative); SARS-CoV-2 RNA PCR Negative
[2021-10-27 16:31] VITALS: BP 150/98; PULSE 85; RESP 18; O2SAT 98
== END 2021-10-27 16:34 | disposition home or self-care (01) ==
PROVIDERS: Emergency Provider Emergency Medicine; PCP Family Medicine
DX: R53.1 Weakness (principal); Z20.822 Contact with and (suspected) exposure to COVID-19; I10 Essential (primary) hypertension; E78.5 Hyperlipidemia, unspecified; E89.0 Postprocedural hypothyroidism; F33.9 Major depressive disorder, recurrent, unspecified; Z87.891 Personal history of nicotine dependence; Z79.82 Long term (current) use of aspirin; Z86.73 Personal history of transient ischemic attack (TIA), and cerebral infarction without residual deficits; Z85.819 Personal history of malignant neoplasm of unspecified site of lip, oral cavity, and pharynx; Z93.0 Tracheostomy status; M16.0 Bilateral primary osteoarthritis of hip; I65.23 Occlusion and stenosis of bilateral carotid arteries; I65.01 Occlusion and stenosis of right vertebral artery
CPT/HCPCS: 36415; 51701; 70450; 70498; 71046; 73502; 80053; 81001; 85025; 85610; 85730; 87502; 93005; 99284; C9803; Q9967; U0003; U0005

== ENCOUNTER → 2022-01-09 11:03 | Outpatient (CLI) | payer MEDICARE, BC, SELFPAY ==
--- NOTE | ~2022-01-09 | MR_ITS ---
EXAMINATION: MR brain/brain stem wo con DATE: 01/09/2022 12:21 INDICATION: Stroke. Dizziness. Bilateral leg weakness. TECHNIQUE: Magnetic resonance imaging (MRI) of the brain and brainstem was performed without intraven ous contrast. COMPARISON: Brain MRI 09/20/2011, head CT 10/27/2021 FINDINGS: There are scattered areas of nonspecific increased T2-weighted signal intensity in the cere bral white matter, which is within normal limits for the patient's age. There is no intracranial hemo rrhage, acute infarction, or abnormal intracranial mass lesion. The ventricles are normal in size. Th e paranasal sinuses are clear. There are likely changes of ocular lens replacement surgeries. There a re small bilateral mastoid effusions. IMPRESSION: 1. Normal aging brain. Reviewed, dictated and finalized at location A. IMPRESSION: 1. Normal aging brain.
== END ==
PROVIDERS: PCP Family Medicine; Visit Provider Nurse Practitioner Gerontology
DX: G40.209 Localization-related (focal) (partial) symptomatic epilepsy and epileptic syndromes with complex partial seizures, not intractable, without status epilepticus (principal); R41.3 Other amnesia; I63.9 Cerebral infarction, unspecified
CPT/HCPCS: 70551

== ENCOUNTER 2022-12-13 11:56 | Outpatient (CLI) | payer MEDICARE, BC, SELFPAY ==
--- NOTE | ~2022-12-13 | US_ITS ---
EXAMINATION: US soft tissue UE LT DATE: 12/13/2022 12:15 INDICATION: Localized swelling, mass or lump at the left elbow TECHNIQUE: Multiple grayscale and Doppler ultrasound images of the region of concern at the left elbo w were obtained. COMPARISON: None FINDINGS: There is a 2.2 x 2.2 x 0.9 cm heterogeneously hypoechoic lesion located superficial to a bone which a ppears most likely to represent the olecranon. Mild reticular pattern of hypoechoic subcutaneous ramírez a in the surrounding fat and increased vascular flow both surrounding and within the hypoechoic lesio n. Appearance and location would be most consistent with olecranon bursitis. IMPRESSION: 1. 2.2 x 2.2 x 0.9 cm hypervascular hypoechoic lesion posterior to the olecranon which is nonspecific and although neoplasm could not be absolutely excluded, the location and appearance would be most co nsistent with olecranon bursitis. Reviewed, dictated and finalized at location A. IMPRESSION: 1. 2.2 x 2.2 x 0.9 cm hypervascular hypoechoic lesion posterior to the olecrano n which is nonspecific and although neoplasm could not be absolutely excluded, the location and appearance would be most consistent with olecranon bursitis.
== END 2022-12-13 11:57 | disposition home or self-care (01) ==
LOC: ANHIMG 11:59
PROVIDERS: PCP Family Medicine; Visit Provider Physician Assistant
DX: R22.32 Localized swelling, mass and lump, left upper limb (principal)
CPT/HCPCS: 76882

== ENCOUNTER 2022-12-20 09:10 | Outpatient (CLI) | payer MEDICARE, BC, SELFPAY ==
--- NOTE | ~2022-12-20 | CT_ITS ---
EXAMINATION: CT diagnostic chest wo con DATE: 12/20/2022 09:31 INDICATION: Solitary pulmonary nodule TECHNIQUE: Computed tomography (CT) of the chest was performed without intravenous contrast. The dose -length product (DLP) was 162.20 mGy-cm. Automated exposure control and iterative reconstruction tech [employer] were employed. COMPARISON: 03/30/2007 FINDINGS: There is mild emphysema. There are multiple small nodules scattered throughout the lungs, t he largest which measures 3 mm in the left lower lobe. The lungs are free of acute opacities. No pleu ral effusion or pneumothorax. Calcified right hilar and right paratracheal lymph nodes are consistent with old granulomatous disease. A tracheostomy is in place. No pathologically enlarged thoracic lymp h nodes are identified. The heart size is normal. Calcified coronary artery atherosclerosis is noted. Punctate calcifications in an otherwise normal spleen likely represent healed granulomatous disease. There are changes of cholecystectomy. There is moderate thoracic spondylosis. IMPRESSION: 1. Scattered small pulmonary nodules measuring up to 3 mm, likely infectious or inflammatory. Reviewed, dictated and finalized at location []
== END 2022-12-20 09:11 | disposition home or self-care (01) ==
PROVIDERS: PCP Family Medicine; Visit Provider Physician Assistant
DX: R91.1 Solitary pulmonary nodule (principal); R91.8 Other nonspecific abnormal finding of lung field
CPT/HCPCS: 71250

== ENCOUNTER 2023-03-21 16:01 | Observation (INO) | payer MEDICARE, BC, SELFPAY ==
--- NOTE | ~2023-03-21 | CT_ITS ---
EXAMINATION: CT brain wo con DATE: 03/21/2023 19:06 INDICATION: fall, hi . TECHNIQUE: Computed tomography (CT) of the head was performed without intravenous contrast. The mA wa s adjusted according to patient size. Iterative reconstruction technique was employed. The dose-lengt h product was 605.33 mGy-cm. COMPARISON: 322. FINDINGS: No acute intracranial hemorrhage or extra-axial fluid collection. No hydrocephalus, mass, or herniation. No acute ischemic infarct. Unremarkable dural venous sinus attenuation. No acute osseous abnormality in the skull. Mildly displaced nasal bone fractures. Right frontal contu kacie/hematoma Trace bilateral mastoid fluid, the remaining aerated spaces are clear. Mild atrophy and chronic white matter change. Atherosclerotic intracranial calcification. Bilateral l ens replacements. Old right cerebellar infarct. IMPRESSION: No acute intracranial process. Mildly displaced nasal bone fractures. Reviewed, dictated and finalized at location K.
--- NOTE | ~2023-03-21 | CT_ITS ---
EXAMINATION: CT facial & cervical spine wo DATE: 03/21/2023 19:10 INDICATION: fall, HI, neck pain, facial injuries TECHNIQUE: Computed tomography (CT) of the maxillofacial region and cervical spine was performed with out intravenous contrast. Automated exposure control and iterative reconstruction technique were empl oyed. The dose-length product was 465.20 mGy-cm. COMPARISON: 06/22/2019 FINDINGS: CERVICAL: Vertebral Body Alignment: Intact. Craniocervical and atlantoaxial alignment: Moderate degenerative change. Alignment intact. Osseous structures/fracture: No evidence of a lytic or blastic process in the visualized spine. No e vidence of acute fracture. Old mild T2 compression fracture. Cervical soft tissues: The paraspinal soft tissues planes are maintained. Tracheostomy tube terminati ng in the upper thoracic trachea. Biapical pleural scarring. Emphysematous change. Degenerative changes: Multilevel moderate degenerative disc disease and facet arthropathy. No severe central canal or neural foraminal narrowing. FACE: Soft Tissues: Right frontal soft tissue contusion/hematoma. Facial bones: Mildly depressed nasal bone fractures with leftward displacement. No lytic or blastic process. Eyes: The globes are intact. The soft tissue planes of the orbits are maintained. Bilateral lens re placements. Paranasal Sinuses: Trace bilateral mastoid fluid. The remaining aerated spaces are clear. Foreign Bodies: No radiopaque foreign bodies. Other Findings: None. IMPRESSION: No acute fracture or traumatic malalignment in the cervical spine. Mildly depressed and displaced nasal bone fractures. Reviewed, dictated and finalized at location K.
--- NOTE | ~2023-03-21 | CT_ITS ---
EXAMINATION: CT abdomen pelvis w con DATE: 03/21/2023 19:17 INDICATION: fall 2 weeks ago, LUQ pain/bruising TECHNIQUE: Computed tomography (CT) of the abdomen and pelvis was performed with 100 mL Omnipaque-350 intravenous contrast. Automated exposure control and iterative reconstruction technique were employe d. The dose-length product was 1336.36 mGy-cm. COMPARISON: 01/01/2009. FINDINGS: Lower thorax: Mild senescent/emphysematous change. Aortic valve, mitral, and coronary artery calcific ation. Liver: Normal. Biliary/Gallbladder: Gallbladder is absent. Mild intrahepatic and moderate extrahepatic bile duct dil ation, likely secondary to cholecystectomy and age. Pancreas: Mild atrophy. Spleen: Granulomatous calcifications. Adrenals:No mass. Kidneys: Bilateral nonobstructing renal/vascular calcifications. No suspicious mass, obstructing ston e, or hydronephrosis. GI tract: Mild distal esophageal and gastric wall edema as can be seen with mild esophagitis/gastriti s. No small or large bowel dilation. Normal appendix. Mesentery/Peritoneum: No ascites, mass, or free air. Retroperitoneum: No mass. Atherosclerotic abdominal aortic and/or arterial calcifications. Pelvis: Pelvic organs are within normal limits. Soft Tissues: 2.9 x 8.5 cm subcutaneous fluid collection, with adjacent subcutaneous edema/stranding. Bones: No acute osseous finding. IMPRESSION: 8.5 cm subcutaneous hematoma in the left upper quadrant. No other acute traumatic process detected in the abdomen or pelvis Reviewed, dictated and finalized at location K.
--- NOTE | ~2023-03-21 | XR_ITS ---
EXAM: XR elbow LT min 3V DATE: 03/21/2023 18:27 HISTORY: fall, pain, skin tear . COMPARISON: None available. FINDINGS: Decreased mineralization. Partially visualized humeral fixation hardware No fracture or di slocation. No lytic or blastic lesion. Mild degenerative change in the elbow joint. Lateral epicondyl ar enthesopathy. No erosion or periosteal change. Soft tissues within normal limits. IMPRESSION: No acute osseous finding in the left elbow. Reviewed, dictated and finalized at location K.
--- NOTE | ~2023-03-21 | XR_ITS ---
EXAM: XR hand RT min 3V DATE: 03/21/2023 18:27 HISTORY: fall, pain, bruising to 5th digit . COMPARISON: 05/18/2013. FINDINGS: Decreased mineralization. No fracture or dislocation. No lytic or blastic lesion. Scattere d arthritic change. No erosion or periosteal change. Soft tissues within normal limits. IMPRESSION: No acute osseous finding in the right hand. Reviewed, dictated and finalized at location K.
--- NOTE | ~2023-03-21 | XR_ITS ---
EXAM: XR knee RT 3V DATE: 03/21/2023 18:28 HISTORY: fall, knee pain . COMPARISON: 02/19/2017. FINDINGS: Normal mineralization. No fracture or dislocation. No lytic or blastic lesion. Tricompartm ental osteophytosis, moderate in the medial compartment. Quadriceps and patellar enthesopathy. Small right knee joint effusion. No erosion or periosteal change. Anterior soft tissue swelling. IMPRESSION: No acute osseous finding in the right knee. Reviewed, dictated and finalized at location K.
[2023-03-21 16:12] VITALS: BP 168/60; PULSE 84; RESP 16; TEMP 36.8; O2SAT 99
--- NOTE | 2023-03-21 18:04 | ECG_ITS ---
Measurements Intervals [place] Rate: 85 P: 4 [place]: 130 QRS: 19 QRSD: 97 T: 29 QT: 354 QTc: 423 Interpretive Statements SINUS RHYTHM BASELINE ARTIFACT- I, II, III, AVR, AVL, AVF NORMAL ECG COMPARED TO ECG 10/27/2021 11:40:11 NO SIGNIFICANT CHANGES Electronically Signed On 03-21-2023 18:54:02 CDT by Parish Almanzar D.O.
--- NOTE | 2023-03-21 18:15 | ED.FALL ---
HPI - Fall General Chief Complaint: Fall Stated Complaint: fall Time Seen by Provider: 03/21/23 17:30 Source: patient Mode of arrival: ambulatory Limitations: no limitations History of Present Illness HPI Narrative: Patient is a 77 y/o female, with hx of throat CA with tracheostomy in place, who presents to the ED with report of a fall. Patient reports she fell 2.5 weeks ago and injured her left side. She states the pain had improved but became worse again yesterday in her left-sided abdomen and lower ribs. She made an appointment to see her primary care doctor today and had a fall in the office. Patient states she was told her cane got caught on the edge of the door which caused her to fall. Patient denies feeling dizzy or lightheaded before the fall. Denies other prodromal symptoms. She did hit her head and had an epistaxis. She denied LOC and states she remembers the entire fall, but does report there is a period of time afterwards that she does not remember. She complains of pain to her head and neck, right hand, right knee, and left elbow. She sustained a small skin tear to her left elbow. Denies current dizziness, lightheadedness, vision changes, cp, sob, nausea, vomiting. Related Data Home Medications Medication Instructions Recorded Confirmed ascorbic acid (vitamin C) 1,000 mg 1 g PO DAILY 10/21/21 03/18/23 tablet budesonide 160 mcg-glycopyr 9 2 inh inhalation BID 10/21/21 03/18/23 mcg-formot 4.8 mcg/actuation HFA inhaler (Breztri Aerosphere) calcium carbonate 600 mg calcium 600 mg PO DAILY 10/21/21 03/18/23 (1,500 mg) tablet (Calcium) cholecalciferol (vitamin D3) 125 125 mcg PO WEEKLY 10/21/21 03/18/23 mcg (5,000 unit) capsule cyanocobalamin (vitamin B-12) 500 500 mcg PO DAILY 10/21/21 03/18/23 mcg tablet melatonin 10 mg tablet 10 mg PO HS 10/21/21 03/18/23 [id number] 8 mg-folic 400 1 tablet PO DAILY 10/21/21 03/18/23 mcg-K 50 mcg-lutein 300 mcg tablet (Multivitamin Women 50 Plus) valerian root 500 mg capsule 500 mg PO HS 10/21/21 03/18/23 Allergies Allergy/AdvReac Type Severity Reaction Status Date / Time No Known Allergies Allergy Verified 03/21/23 15:32 Review of Systems Review of Systems: CONSTITUTIONAL: Denies fever, chills, or sweats. EYES: Denies visual changes. ENT: See HPI. CARDIOVASCULAR: Denies chest pain, palpitations, or edema. RESPIRATORY: Denies dyspnea. GASTROINTESTINAL: Denies abdominal pain, nausea, vomiting, or diarrhea. GENITOURINARY: Denies dysuria or hematuria. MUSCULOSKELETAL: See HPI. NEUROLOGIC: See HPI. All systems reviewed & are unremarkable except as noted in HPI and below PMFSH Past Medical History Medical History Alcohol abuse Avitaminosis D Benign essential HTN Bursitis Carotid stenosis, bilateral ABHI (generalized anxiety disorder) Hyperlipidemia Hypothyroidism (acquired) Iatrogenic hyperthyroidism Mass of left forearm MDD (major depressive disorder), recurrent episode, moderate Olecranon bursitis of right elbow Seizures Throat cancer Throat cancer Tracheostomy in place Surgical History Surgical History H/O thyroidectomy Hx of hysterectomy Family History Family History Father Depression Sibling Depression Grandparent Cerebrovascular accident Social History Social History Social History: , lives alone, 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
[2023-03-21] MEDS: ONDANSETRON INJ 4 MG/2 ML VIAL IV PUSH (18:37)
[2023-03-21] MEDS: MORPHINE SULFATE (*CRX) 2 MG/ML INJ IV PUSH (18:38)
[2023-03-21 18:42] LABS: Basophils Percent Auto 0.5 % (0.2-1.2); Eosinophils Absolute Auto 0.1 K/mm3 (0-0.3); Eosinophils Percent Auto 1.4 % (0-4.4); Hematocrit 41.7 % (37.0-47.0); Hemoglobin 13.3 g/dL (12.0-15.0); Immature Granulocyte Absolute 0.03 K/mm3 (0.00-0.031); Immature Granulocyte Percent A 0.4 % (0-0.5); Lymphocytes Absolute Auto 1.27 K/mm3 (0.9-3.2); Lymphocytes Percent Auto 16.5 % (18.3-44.2); Mean Corpuscular HGB Conc 31.9 g/dl (32-36); Mean Corpuscular Hemoglobin 28.8 pg (26-34); Mean Corpuscular Volume 90.3 fl (80-100); Mean Platelet Volume 10.6 fl (7.4-10.4); Monocytes Absolute Auto 0.5 K/mm3 (0.1-0.6); Monocytes Percent Auto 5.9 % (2.6-8.5); Neutrophils Absolute Auto 5.8 K/mm3 (1.3-6.7); Neutrophils Percent Auto 75.3 % (45.5-73.1); Platelet Count Result 189 k/mm3 (150-375); Red Blood Count 4.62 M/mm3 (4.2-5.4); Red Cell Distribution Width 14.6 % (11.5-14.5); White Blood Count 7.7 K/mm3 (4.5-10.0)
[2023-03-21 18:49] LABS: Alanine Aminotransferase 23 U/L (6-35); Alkaline Phosphatase 118 U/L (38-126); Anion Gap 12 mmol/L (8-16); Aspartate Amino Transferase 38 U/L (14-36); Bilirubin,Total 0.9 mg/dL (0.2-1.3); Blood Urea Nitrogen 24 mg/dL (7-17); Calcium 9.8 mg/dL (8.4-10.2); Carbon Dioxide 27 mmol/L (22-30); Chloride 101 mmol/L (98-107); Estimated CRCL calculation 52 ml/min; Estimated Glomerular Filt Rate > 60; Glucose 105 mg/dL (65-110); Magnesium 2.3 mg/dL (1.6-2.3); Potassium 4.6 mmol/L (3.4-5.0); Sodium 140 mmol/L (137-145)
[2023-03-21 18:59] LABS: Troponin I < 0.012 ng/mL (0.000-0.034)
[2023-03-21 20:45] LABS: Ethanol < 10 mg/dL (<10)
[2023-03-21 21:37] VITALS: BP 124/56; PULSE 93; RESP 18; TEMP 36.6; O2SAT 95
--- NOTE | 2023-03-21 21:51 | PC.NURSE ---
Pt ambulation trial unsuccessful, upon standing pt unsteady and stated she could not walk . Pt placed back in bed. ANIKA French, notified.
[2023-03-21 22:37] VITALS: BP 142/58; PULSE 82; O2SAT 91
[2023-03-22] VITALS (9 sets, daily range): BP systolic 118–151; BP diastolic 45–85; PULSE 71–86; RESP 18; TEMP 35.8–36.9; O2SAT 90–97
[2023-03-22] MEDS: MORPHINE SULFATE (*CRX) 2 MG/ML INJ IV PUSH (02:20)
--- NOTE | 2023-03-22 02:42 | ADMGEN ---
This patient, Alayna Orourke, was admitted to [facility] Surg Room 325-02. Patient/family oriented to hospital policies and general routines including ID bracelet, bed and alarms, visiting hours, pain management, procedures, bathroom and other care routines, personal items, smoking policy, room service/diet, and visiting hours. Information on how to activate the Rapid Response Team has been discussed. Patient/Family are encouraged to report perceived risks to care and to ask questions if they do not understand what they are told or what they should do.
[2023-03-22 06:35] LABS: Basophils Percent Auto 0.4 % (0.2-1.2); Eosinophils Absolute Auto 0.1 K/mm3 (0-0.3); Hematocrit 37.5 % (37.0-47.0); Immature Granulocyte Absolute 0.02 K/mm3 (0.00-0.031); Immature Granulocyte Percent A 0.4 % (0-0.5); Lymphocytes Absolute Auto 1.27 K/mm3 (0.9-3.2); Mean Corpuscular Hemoglobin 29.2 pg (26-34); Mean Corpuscular Volume 91.2 fl (80-100); Monocytes Absolute Auto 0.4 K/mm3 (0.1-0.6); Neutrophils Absolute Auto 3.7 K/mm3 (1.3-6.7); Neutrophils Percent Auto 66.2 % (45.5-73.1); Platelet Count Result 152 k/mm3 (150-375); Red Blood Count 4.11 M/mm3 (4.2-5.4); Red Cell Distribution Width 14.6 % (11.5-14.5); White Blood Count 5.5 K/mm3 (4.5-10.0)
--- NOTE | 2023-03-22 10:21 | PM.IMHP ---
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 She presented to the ER on 03/21 from her primary care's office. She was seeing Dr. López and when she was walking to the clinic room she caught her cane on the doorway and fell forward striking her face and right side of her body. She was alert and responding to verbal commands, was A&O x3, but was unable to recall events leading up to the fall. According to her family the patient falls a lot, in fact she fell 1-2 weeks ago striking the left side of her body. She was seen on 03/10 at [facility] [place] where she was assessed and then discharged home. Imaging in the ER from CT abdomen pelvis shows an 8.5 cm subcutaneous hematoma in the left upper quadrant likely from her fall 1-2 weeks ago, no acute fracture or traumatic malalignment of the surgical spine C-collar was cleared, she does have mildly depressed and displaced nasal bone fractures. Head CT shows no acute intracranial process besides previously mentioned nasal fractures. Her labs are unremarkable and vital signs stable. The ER attempted to have therapy work with her in hopes of discharging her home however the patient could barely take 1-2 steps without severe pain. So she was admitted for PT OT consult and recommendations on placement. 03/22-she is seen at the bedside today with her daughter and son-in-law present. She is very banged up with periorbital ecchymosis, right wrist swelling, and right lower extremity swelling and bruising. Her biggest complaints are that she is sore and is having difficulty with ambulation. She also states that she has a headache and tenderness to her neck, as well as her right wrist and right leg. Her C-spine was cleared done in the ER however she may benefit from a soft collar for comfort. She denies dizziness, chest pain, shortness a breath nausea, vomiting, diarrhea, constipation. She does have a skin tear to her left elbow. I discussed with her that we would keep her overnight so she may be evaluated by physical and occupational therapy with an intention of likely needing rehab or assisted placement for short duration while she recovers. She is not too thrilled about the idea but she does realize that she can go home right now because she cannot walk. Review of Systems Review of Systems: All systems reviewed & are unremarkable except as noted in HPI and below PMFSH Past Medical History Medical History Alcohol abuse Avitaminosis D Benign essential HTN Bursitis Carotid stenosis, bilateral ABHI (generalized anxiety disorder) Hyperlipidemia Hypothyroidism (acquired) Iatrogenic hyperthyroidism Mass of left forearm MDD (major depressive disorder), recurrent episode, moderate Olecranon bursitis of right elbow Seizures Throat cancer Throat cancer Tracheostomy in place Surgical History Surgical History H/O thyroidectomy Hx of hysterectomy Family History Family History Father Depression Sibling Depression Grandparent Cerebrovascular accident Social History Social History Social History: , lives alone, 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
[2023-03-22] MEDS: oxyCODONE HCL (*CRX) 5 MG TAB IR 10 MG PO (15:18)
[2023-03-22] MEDS: PANTOPRAZOLE 40 MG TABLET PO (17:59)
[2023-03-22] MEDS: ACETAMINOPHEN 325 MG TABLET 650 MG PO (17:59)
[2023-03-22] MEDS: levETIRAcetam 250 MG TABLET 750 MG BY MOUTH (20:15)
[2023-03-22] MEDS: MELATONIN 5 MG TABLET 10 MG PO (20:16)
[2023-03-22] MEDS: lamoTRIgine 100 MG TABLET PO (20:16)
[2023-03-22] MEDS: rOPINIRole HCL 0.5 MG TABLET PO (20:16)
[2023-03-22] MEDS: lamoTRIgine 100 MG TABLET 200 MG PO (20:16)
[2023-03-22] MEDS: LORazepam (*CRX) 1 MG TABLET PO (20:17)
[2023-03-22] MEDS: oxyCODONE HCL (*CRX) 5 MG TAB IR PO (20:17)
[2023-03-22 20:44] LABS: Appearance Urine Clear (Clear); Bacteria Urine None Seen /hpf; Bilirubin Urine Negative (Negative); Blood Urine Negative (Negative); Color Urine Yellow (Yellow); Glucose Urine UA Negative (Negative); Ketones Urine Negative (Negative); Leukocyte Esterase Ur Trace LEU/UL (Negative); Nitrate Urine Negative (Negative); Non Pathogenic Casts 0-2; Protein Urine Negative (Negative); RBC Urine 0-2 /hpf (0-2); Specific Grav Ur 1.016 (1.001-1.035); Squamous Epithelial Cell Urine None seen /hpf (Few); Urobilinogen Urine 0.2 mg/dL (<2.0); WBC Urine 0-5 /hpf
[2023-03-22 20:58] LABS: Add Urine Microscopic? YES
[2023-03-23] MEDS: oxyCODONE HCL (*CRX) 5 MG TAB IR PO ×3 (01:14→14:25)
[2023-03-23] MEDS: LEVOTHYROXINE SODIUM 100 MCG TABLET 200 MCG PO (05:36)
[2023-03-23 06:00] VITALS: BP 120/55; PULSE 64; RESP 16; TEMP 36.6; O2SAT 85
[2023-03-23 08:00] VITALS: O2SAT 95
[2023-03-23 08:01] LABS: Basophils Percent Auto 0.3 % (0.2-1.2); Eosinophils Absolute Auto 0.1 K/mm3 (0-0.3); Eosinophils Percent Auto 3.4 % (0-4.4); Hematocrit 37.6 % (37.0-47.0); Hemoglobin 11.9 g/dL (12.0-15.0); Immature Granulocyte Absolute 0.01 K/mm3 (0.00-0.031); Immature Granulocyte Percent A 0.3 % (0-0.5); Lymphocytes Absolute Auto 1.03 K/mm3 (0.9-3.2); Lymphocytes Percent Auto 26.6 % (18.3-44.2); Mean Corpuscular HGB Conc 31.6 g/dl (32-36); Mean Corpuscular Hemoglobin 28.8 pg (26-34); Mean Platelet Volume 9.8 fl (7.4-10.4); Monocytes Absolute Auto 0.3 K/mm3 (0.1-0.6); Monocytes Percent Auto 7.8 % (2.6-8.5); Neutrophils Absolute Auto 2.4 K/mm3 (1.3-6.7); Neutrophils Percent Auto 61.6 % (45.5-73.1); Platelet Count Result 135 k/mm3 (150-375); Red Blood Count 4.13 M/mm3 (4.2-5.4); Red Cell Distribution Width 14.4 % (11.5-14.5); White Blood Count 3.9 K/mm3 (4.5-10.0)
[2023-03-23 08:16] LABS: Alanine Aminotransferase 27 U/L (6-35); Albumin Level 4.1 g/dL (3.5-5.1); Alkaline Phosphatase 118 U/L (38-126); Anion Gap 3 mmol/L (8-16); Aspartate Amino Transferase 34 U/L (14-36); Bilirubin,Total 0.7 mg/dL (0.2-1.3); Blood Urea Nitrogen 15 mg/dL (7-17); Calcium 9.1 mg/dL (8.4-10.2); Carbon Dioxide 37 mmol/L (22-30); Chloride 99 mmol/L (98-107); Estimated CRCL calculation 56 ml/min; Estimated Glomerular Filt Rate > 60; Glucose 106 mg/dL (65-110); Magnesium 2.4 mg/dL (1.6-2.3); Potassium 3.9 mmol/L (3.4-5.0); Sodium 139 mmol/L (137-145)
[2023-03-23] MEDS: hydroCHLOROthiazide 25 MG TABLET 50 MG PO (08:22)
[2023-03-23] MEDS: levETIRAcetam 250 MG TABLET 750 MG BY MOUTH ×2 (08:22→20:10)
[2023-03-23] MEDS: lamoTRIgine 100 MG TABLET PO ×2 (08:22→20:09)
[2023-03-23] MEDS: amLODIPine BESYLATE 5 MG TABLET 10 MG BY MOUTH (08:22)
[2023-03-23] MEDS: lamoTRIgine 100 MG TABLET 200 MG PO ×2 (08:22→20:10)
[2023-03-23] MEDS: ROSUVASTATIN 5 MG TABLET BY MOUTH (08:23)
[2023-03-23] MEDS: LORazepam (*CRX) 1 MG TABLET PO ×3 (08:23→20:10)
[2023-03-23] MEDS: THERAPEUTIC MULTIVITAMINS/MINERALS TAB (*BKC) 1 TABLET PO (08:23)
[2023-03-23] MEDS: PANTOPRAZOLE 40 MG TABLET PO ×2 (08:23→17:26)
[2023-03-23] MEDS: rOPINIRole HCL 0.5 MG TABLET PO ×2 (08:23→20:10)
[2023-03-23] MEDS: polyethylene glycoL 3350 17 GM POWD.PACK PO (10:22)
[2023-03-23] MEDS: DOCUSATE SODIUM 100 MG CAPSULE PO ×2 (10:22→20:09)
[2023-03-23] MEDS: ACETAMINOPHEN 325 MG TABLET 650 MG PO ×2 (11:52→17:26)
[2023-03-23 14:00] VITALS: BP 128/53; PULSE 75; RESP 16; TEMP 36.2; O2SAT 93
--- NOTE | 2023-03-23 15:09 | PM.IMPN ---
Progress Note: A&P Assessment and Plan (1) Fracture of nasal bones: Qualifiers: Encounter type: initial encounter Fracture type: closed Qualified Code(s): S02.2XXA - Fracture of nasal bones, initial encounter for closed fracture Code(s): S02.2XXA - Fracture of nasal bones, initial encounter for closed fracture Status: Acute Assessment and Plan: CT shows mildly displaced nasal bone fractures. s/p mechanical fall Pain control with oxy prn and scheduled tylenol no respiratory compromise. VSS. on room air (2) Frequent falls: Code(s): R29.6 - Repeated falls Status: Acute Assessment and Plan: This is her second fall in 3 [address] at [facility] ED for a mechanical fall. Her PCP has asked her to use a walker but she refuses. Most of the time she doesn't even use her cane per her daughter. UA ordered just to make sure she doesn't have an infection. Last ECHO was a year ago. Can repeat now. She is on quite a few medications that could be contributing, plus she still drinks ETOH daily with all of these medications. PT/OT consult and rec's appreciated. (3) Contusion, trunk, multiple sites: Qualifiers: Encounter type: subsequent encounter Qualified Code(s): S20.20XD - Contusion of thorax, unspecified, subsequent encounter Code(s): S20.20XA - Contusion of thorax, unspecified, initial encounter Status: Acute Assessment and Plan: Right sided ecchymosis from this fall and left sided hematoma healing from previous fall Pain control with prn agents and schedule tylenol Monitor H/H. Not on anticoagulation but is on ASA. Holding ASA for now. (4) Tracheostomy in place: Code(s): Z93.0 - Tracheostomy status Status: Acute Assessment and Plan: S/p laryngectomy 20 + years ago for throat cancers Follows with speech therapy in [place] Is able to drink and eat regular food with her laryngeal cap in place. (5) Seizures: Code(s): R56.9 - Unspecified convulsions Status: Acute Assessment and Plan: Stable. Home agents include keppra and lamictal. Restarted. (6) Hypothyroidism (acquired): Code(s): E03.9 - Hypothyroidism, unspecified Status: Acute Assessment and Plan: Stable. On levothyroxine. TSH within normal limits (7) Benign essential HTN: Code(s): I10 - Essential (primary) hypertension Status: Acute Assessment and Plan: Home agents of amlodipine and triamterene 75mg-hydrochlorothiazide 50 mg Blood pressures reviewed and are stable. Restarted amlodipine and hydrochlorothiazide. Triamterene not formulary. (8) COPD (chronic obstructive pulmonary disease): Code(s): J44.9 - Chronic obstructive pulmonary disease, unspecified Status: Acute Assessment and Plan: Stable. Not on oxygen nor has oxygen at home. Takes Breztri inhalation BID. (9) ABHI (generalized anxiety disorder): Code(s): F41.1 - Generalized anxiety disorder Status: Acute Assessment and Plan: On ativan TID, paxil Subjective Date/time seen: 03/23/23 15:09 Interval history: Patient states that she is having some pain and discomfort in her neck, back, abdomen and knees. It is difficult to communicate with patient due to her trach placement. According to care coordination she is not a candidate for therapy and patient is not wanting to undergo therapy. Discussed alcohol abuse with the patient and she does not believe that her alcohol abuse along with taking her Ativan is related to her falls. Is advised that patient discontinue use of Ativan and/or discontinued use of alcohol to help prevent future falls. She has been worked up for cause of falls at 1-2 different hospitals as well as her primary care provider and no such cause has been found. Exam Narrative: GENERAL
[2023-03-23] MEDS: MELATONIN 5 MG TABLET 10 MG PO (20:09)
[2023-03-23] MEDS: oxyCODONE HCL (*CRX) 5 MG TAB IR 10 MG PO (20:11)
[2023-03-23 21:19] VITALS: BP 123/48; PULSE 74; RESP 18; TEMP 36.6; O2SAT 98
[2023-03-24] MEDS: ACETAMINOPHEN 325 MG TABLET 650 MG PO ×2 (05:41→11:55)
[2023-03-24] MEDS: oxyCODONE HCL (*CRX) 5 MG TAB IR 10 MG PO (05:41)
[2023-03-24] MEDS: LEVOTHYROXINE SODIUM 100 MCG TABLET 200 MCG PO (05:41)
[2023-03-24 06:00] VITALS: BP 127/57; PULSE 64; RESP 18; TEMP 36.4; O2SAT 98
[2023-03-24 06:29] LABS: Basophils Percent Auto 0.7 % (0.2-1.2); Eosinophils Absolute Auto 0.1 K/mm3 (0-0.3); Eosinophils Percent Auto 3.1 % (0-4.4); Hematocrit 35.9 % (37.0-47.0); Hemoglobin 11.6 g/dL (12.0-15.0); Immature Granulocyte Absolute 0.01 K/mm3 (0.00-0.031); Immature Granulocyte Percent A 0.2 % (0-0.5); Lymphocytes Percent Auto 21.1 % (18.3-44.2); Mean Corpuscular HGB Conc 32.3 g/dl (32-36); Mean Corpuscular Hemoglobin 29.1 pg (26-34); Mean Corpuscular Volume 90.2 fl (80-100); Monocytes Absolute Auto 0.3 K/mm3 (0.1-0.6); Monocytes Percent Auto 6.8 % (2.6-8.5); Neutrophils Absolute Auto 2.9 K/mm3 (1.3-6.7); Neutrophils Percent Auto 68.1 % (45.5-73.1); Platelet Count Result 135 k/mm3 (150-375); Red Blood Count 3.98 M/mm3 (4.2-5.4); Red Cell Distribution Width 14.1 % (11.5-14.5); White Blood Count 4.3 K/mm3 (4.5-10.0)
[2023-03-24 06:46] LABS: Alanine Aminotransferase 23 U/L (6-35); Albumin Level 3.9 g/dL (3.5-5.1); Alkaline Phosphatase 105 U/L (38-126); Anion Gap 7 mmol/L (8-16); Aspartate Amino Transferase 28 U/L (14-36); Bilirubin,Total 0.6 mg/dL (0.2-1.3); Blood Urea Nitrogen 12 mg/dL (7-17); Carbon Dioxide 34 mmol/L (22-30); Chloride 98 mmol/L (98-107); Estimated CRCL calculation 51 ml/min; Estimated Glomerular Filt Rate > 60; Glucose 119 mg/dL (65-110); Sodium 139 mmol/L (137-145)
[2023-03-24] MEDS: ROSUVASTATIN 5 MG TABLET BY MOUTH (08:23)
[2023-03-24] MEDS: amLODIPine BESYLATE 5 MG TABLET 10 MG BY MOUTH (08:23)
[2023-03-24] MEDS: levETIRAcetam 250 MG TABLET 750 MG BY MOUTH (08:23)
[2023-03-24] MEDS: THERAPEUTIC MULTIVITAMINS/MINERALS TAB (*BKC) 1 TABLET PO (08:23)
[2023-03-24] MEDS: LORazepam (*CRX) 1 MG TABLET PO ×2 (08:23→11:55)
[2023-03-24] MEDS: rOPINIRole HCL 0.5 MG TABLET PO (08:23)
[2023-03-24] MEDS: PANTOPRAZOLE 40 MG TABLET PO (08:24)
[2023-03-24] MEDS: lamoTRIgine 100 MG TABLET 200 MG PO (08:24)
[2023-03-24] MEDS: BENZONATATE 100 MG CAPSULE PO (08:24)
[2023-03-24] MEDS: lamoTRIgine 100 MG TABLET PO (08:24)
[2023-03-24] MEDS: hydroCHLOROthiazide 25 MG TABLET 50 MG PO (08:24)
[2023-03-24] MEDS: DOCUSATE SODIUM 100 MG CAPSULE PO (08:24)
[2023-03-24] MEDS: oxyCODONE HCL (*CRX) 5 MG TAB IR PO (09:27)
--- NOTE | 2023-03-24 11:02 | PM.DS ---
DS: Admitting Diagnosis Discharge Date 03/24/23 Admitting Diagnosis Fall DS: Discharge Diagnosis Discharge Diagnosis (1) Fracture of nasal bones: Qualifiers: Encounter type: initial encounter Fracture type: closed Qualified Code(s): S02.2XXA - Fracture of nasal bones, initial encounter for closed fracture Code(s): S02.2XXA - Fracture of nasal bones, initial encounter for closed fracture Status: Acute (2) Frequent falls: Code(s): R29.6 - Repeated falls Status: Acute (3) Contusion, trunk, multiple sites: Qualifiers: Encounter type: subsequent encounter Qualified Code(s): S20.20XD - Contusion of thorax, unspecified, subsequent encounter Code(s): S20.20XA - Contusion of thorax, unspecified, initial encounter Status: Acute (4) Tracheostomy in place: Code(s): Z93.0 - Tracheostomy status Status: Acute (5) Seizures: Code(s): R56.9 - Unspecified convulsions Status: Acute (6) Hypothyroidism (acquired): Code(s): E03.9 - Hypothyroidism, unspecified Status: Acute (7) Benign essential HTN: Code(s): I10 - Essential (primary) hypertension Status: Acute (8) COPD (chronic obstructive pulmonary disease): Code(s): J44.9 - Chronic obstructive pulmonary disease, unspecified Status: Acute (9) ABHI (generalized anxiety disorder): Code(s): F41.1 - Generalized anxiety disorder Status: Acute DS: Summary Hospital Course Hospital Course: This is a 77-year-old female with past medical history of throat cancer 25 years ago resulting in a a laryngectomy and she now has a trach, hypertension, anxiety disorder, hyperlipidemia, hypothyroidism, seizure disorder and alcohol abuse. She presented to the ER on 03/21/2023 from her primary care's office. Patient had a a recent fall and has been falling a water in the past 1-[address] abdomen pelvis showed a 8.5 cm subcutaneous hematoma in the left upper quadrant likely from fall a couple weeks ago. She had mildly displaced nasal bone fracture. CT head revealed no acute intracranial process. Patient admitted for PT and OT consult for possible placement. Patient refused placement with PT and OT worked with patient. Home health was set up. Is advised that patient not drink alcohol and take her Ativan together. Her labs and vital signs are stable and she is discharged at this time Time Spent with Patient Time attestation: Total time spent providing and/or coordinating discharge services: Exam Narrative: GENERAL: Comfortable, no acute distress HENMT: moist mucous membranes the bruising around mouth EYES: EOM intact b/l, bilateral bruising around patient's eyes NECK: trach in place, no lymphadenopathy RESPIRATORY: clear to auscultation CARDIO: RRR GI: soft, nontender, bowel sounds present SKIN: no rashes, scattered ecchymosis on patient's legs, abdomen and face EXTREMITIES: no edema, redness or tenderness DS: Data Data Completed and Pending Labs on day of discharge: Labs from last 24 hours 03/24/23 06:13 WBC 4.3 L RBC 3.98 L Hgb 11.6 L Hct 35.9 L MCV 90.2 MCH 29.1 MCHC 32.3 RDW 14.1 Plt Count 135 L MPV 10.0 Immature Gran % (Auto) 0.2 Neut % (Auto) 68.1 Lymph % (Auto) 21.1 Navarro % (Auto) 6.8 Eos % (Auto) 3.1 Baso % (Auto) 0.7 Lymph # (Auto) 0.90 Navarro # (Auto) 0.3 Eos # (Auto) 0.1 Baso # (Auto) 0.0 Abs Immat Gran (auto) 0.01 Absolute Neuts (auto) 2.9 Absolute Nucleated RBC 0.0 Nucleated RBC % 0.0 Sodium 139 Potassium 4.0 Chloride 98 Carbon Dioxide 34 H Anion Gap 7 L BUN 12 Creatinine 0.90 Estim Creat Clear Calc 51 Estimated GFR > 60 Glucose 119 H Calcium 9.0 Total Bilirubin 0.6 AST 28 ALT 23 Alkaline Phosphatase 105 Total Protein 7.0 Albumin 3.9 Discharge Plan Discharge Attending physician on discharge: Jez Limon Consulting providers: Gillian Recinos Dis
== END 2023-03-24 12:31 | disposition home health service (06) ==
LOC: ANHED 03-22 01:46 → ANH3MEDSUR 03-22 01:51
PROVIDERS: Nurse Practitioner Acute Care; Admitting Provider Internal Medicine; Emergency Provider Physician Assistant; PCP Family Medicine; Visit Provider Internal Medicine Critical Care Medicine
DX: S02.2XXA Fracture of nasal bones, initial encounter for closed fracture (principal); S30.1XXA Contusion of abdominal wall, initial encounter; S09.90XA Unspecified injury of head, initial encounter; S51.012A Laceration without foreign body of left elbow, initial encounter; S20.20XD Contusion of thorax, unspecified, subsequent encounter; S60.051A Contusion of right little finger without damage to nail, initial encounter; Z93.0 Tracheostomy status; R29.6 Repeated falls; M54.2 Cervicalgia; M79.89 Other specified soft tissue disorders; M25.431 Effusion, right wrist; M25.561 Pain in right knee; R04.0 Epistaxis; R56.9 Unspecified convulsions; R51.9 Headache, unspecified; J44.9 Chronic obstructive pulmonary disease, unspecified; E55.9 Vitamin D deficiency, unspecified; I10 Essential (primary) hypertension; F41.1 Generalized anxiety disorder; E78.5 Hyperlipidemia, unspecified; E03.9 Hypothyroidism, unspecified; F32.9 Major depressive disorder, single episode, unspecified; M70.21 Olecranon bursitis, right elbow; F10.10 Alcohol abuse, uncomplicated; Z85.21 Personal history of malignant neoplasm of larynx; Z87.891 Personal history of nicotine dependence; Y90.0 Blood alcohol level of less than 20 mg/100 ml; Z79.51 Long term (current) use of inhaled steroids; Z79.82 Long term (current) use of aspirin; Z79.899 Other long term (current) drug therapy; Z81.8 Family history of other mental and behavioral disorders
CPT/HCPCS: 36415; 70450; 70486; 72125; 73080; 73130; 73562; 74177; 80053; 80307; 81001; 83735; 84443; 84484; 85025; 93005; 96374; 96375; 96376; 97161; 97165; 97530; 97535; 99285; A9270; G0378; J2270; J2405; L0140; Q9967

== ENCOUNTER 2023-04-27 10:22 | Outpatient (CLI) | payer MEDICARE, BC, SELFPAY ==
[2023-04-27 12:02] LABS: Appearance Urine Clear (Clear); Bacteria Urine None Seen /hpf; Bilirubin Urine Negative (Negative); Blood Urine Negative (Negative); Color Urine Yellow (Yellow); Glucose Urine UA Negative (Negative); Ketones Urine Negative (Negative); Leukocyte Esterase Ur 2+ LEU/UL (Negative); Nitrate Urine Negative (Negative); Non Pathogenic Casts 0-2; Protein Urine Negative (Negative); RBC Urine 0-2 /hpf (0-2); Specific Grav Ur 1.014 (1.001-1.035); Squamous Epithelial Cell Urine None seen /hpf (Few); Urobilinogen Urine 0.2 mg/dL (<2.0); WBC Urine >100 /hpf
[2023-04-27 12:09] LABS: Add Urine Microscopic? YES
== END 2023-04-27 10:23 | disposition home or self-care (01) ==
PROVIDERS: PCP Family Medicine; Visit Provider Physician Assistant
DX: R30.0 Dysuria (principal)
CPT/HCPCS: 81001; 87086

== ENCOUNTER 2023-05-13 12:52 | Outpatient (CLI) | payer MEDICARE, BC, SELFPAY ==
[2023-05-13 13:35] LABS: Alanine Aminotransferase 24 U/L (6-35); Albumin Level 4.6 g/dL (3.5-5.1); Alkaline Phosphatase 109 U/L (38-126); Anion Gap 10 mmol/L (8-16); Aspartate Amino Transferase 35 U/L (14-36); Bilirubin,Total 0.7 mg/dL (0.2-1.3); Blood Urea Nitrogen 18 mg/dL (7-17); Calcium 9.7 mg/dL (8.4-10.2); Carbon Dioxide 30 mmol/L (22-30); Chloride 102 mmol/L (98-107); Estimated Glomerular Filt Rate > 60; Glucose 86 mg/dL (65-110); Potassium 5.5 mmol/L (3.4-5.0); Sodium 142 mmol/L (137-145)
[2023-05-13 14:07] LABS: Free T4 Free Thyroxine 0.84 ng/mL (0.78-2.19)
== END 2023-05-13 12:53 | disposition home or self-care (01) ==
LOC: ANHLAB 12:55
PROVIDERS: PCP Family Medicine; Visit Provider Family Medicine
DX: I10 Essential (primary) hypertension (principal); E03.9 Hypothyroidism, unspecified
CPT/HCPCS: 36415; 80053; 84439; 84443

== ENCOUNTER → 2023-08-24 08:41 | Outpatient (CLI) | payer MEDICARE, BC, SELFPAY ==
--- NOTE | ~2023-08-24 | MR_ITS ---
MRI of the cervical spine Clinical History: Gait disorder Technique: Axial T2-weighted and gradient images, and sagittal T1-weighted, T2-weighted, and STIR diego ges were acquired. Findings: There is no fracture or subluxation of the cervical spine. Vertebral bodies maintain normal height and alignment. No bone marrow signal abnormality seen. At C2-C3, there is minimal disc osteophyte complex. Probable minimal canal stenosis without sharri cor d compression. There is mild right neural foraminal narrowing with facet arthropathy. Left neural for amen probably preserved. At C3-C4, there is mild disc osteophyte complex with mild canal stenosis and probable mild ventral co rd flattening. There is bilateral neural foraminal narrowing with left facet arthropathy present. At C4-C5, there is disc osteophyte complex with canal stenosis and probable mild flattening the ventr al cord. Bilateral neural foramina are probably preserved. At C5-C6, there is disc osteophyte complex with mild canal stenosis and possible minimal flattening t he ventral cord. There is probable right neural foraminal narrowing. Left neural foramen preserved. At C6-C7, there is minimal disc osteophyte complex. No definite canal stenosis or cord compression. N eural foramina are preserved. No abnormal signal seen in the spinal cord. Paravertebral soft tissues are unremarkable. Impression: Moderate to advanced spondylosis, as detailed above, with spinal canal stenosis and mild cord flatten ing at C3-C4, C4-C5, and C5-C6. Reviewed, dictated and finalized at [facility]. 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
== END ==
PROVIDERS: PCP Family Medicine; Visit Provider Nurse Practitioner Gerontology
DX: R26.9 Unspecified abnormalities of gait and mobility (principal); M47.892 Other spondylosis, cervical region
CPT/HCPCS: 72141

== ENCOUNTER 2023-12-16 13:22 | Outpatient (CLI) | payer MEDICARE, BC, SELFPAY ==
[2023-12-16 13:58] LABS: Alanine Aminotransferase 17 U/L (6-35); Albumin Level 4.3 g/dL (3.5-5.1); Alkaline Phosphatase 94 U/L (38-126); Anion Gap 7 mmol/L (4-12); Aspartate Amino Transferase 24 U/L (14-36); Bilirubin,Total 0.5 mg/dL (0.2-1.3); Blood Urea Nitrogen 15 mg/dL (7-17); Carbon Dioxide 27 mmol/L (22-30); Chloride 108 mmol/L (98-107); Estimated Glomerular Filt Rate > 60; Glucose 91 mg/dL (65-110); Sodium 142 mmol/L (137-145)
== END 2023-12-16 13:23 | disposition home or self-care (01) ==
PROVIDERS: PCP Family Medicine; Visit Provider Family Medicine
DX: I10 Essential (primary) hypertension (principal)
CPT/HCPCS: 36415; 80053

== ENCOUNTER 2024-06-08 11:28 | Outpatient (CLI) | payer MEDICARE, BC, SELFPAY ==
--- OUTSIDE RECORDS SUMMARY | 2024-06-08 12:41 | XMS_ITS ---
Author Organization [facility] Address [address] [place] [address] Care Team Providers Care Firesetter Name Role Phone PratikDavon Unavailable [phone] REASON FOR VISIT [facility], interested in peptide therapy, previously on Semaglutide for 4 weeks at 0.25 mg (last dose 04/01/24). no adequate appetite suppression, Desired weight loss: 30-40 lbs, -1.5lbs down since last dose, 1.5lbs lost since starting program, No history MTC or MEN2 or pancreatitis, Concerned about future DM and OA Vital Signs Height 63.5 in 04/16/2024 Weight 200.6 lbs 04/16/2024 BMI 34.97 kg/m2 04/16/2024 Encounters Encounter Location Date Provider Diagnosis [facility] [place] ([address]) [address] [facility] [address] [place] [address] 04/16/2024 Davon Christie Abnormal weight gain R63.5 ; Other fatigue R53.83 and Other malaise R53.81 Assessments Encounter Date Diagnosis (ICD Code) Assessment Notes Treatment Notes Treatment Clinical Notes Section Notes 04/16/2024 Abnormal weight gain (ICD-10 - R63.5) 04/16/2024 Other fatigue (ICD-10 - R53.83) 04/16/2024 Other malaise (ICD-10 - R53.81) Plan Of Treatment Next Appt Details Follow Up: 1 Week, Reason: G LP-1 Agonist Administration Provider Name:Davon SatyaMary Christie , 06/28/2024 11:00:00 AM, [address], [place], [address], Procedure Notes * Category Sub-Category Detail Notes [facility] tirzepatide Indication: weig ht loss Concentration: 10 mg/mL Volume Administered: 0.1 mL Dose Administered: 1 mg Route: SQ Location: Right abdomen Frequency: weekly Lot Number/Expiration: Medication Source: Nutraceutical Comp ounding Adverse Reaction: None Progress Notes * Maynor HANaDOB: 6 (78 yo F)Acc No.[id number]:04/16/2024 Weight Loss Patient:?Alayna HAN Provider:?Davon Christie MD :1945???Age:78 Y???Sex:Female D ate:04/16/2024 Address:[address] [place] [address] Subjective: * Chief Complaints: * ???1. [facility], interested in peptide therapy, previously on Semaglutide for 4 weeks at 0.25 mg (last dose 04/01/24). no adequate appetite suppression. 2. Desired weight loss: 30-40 lbs, -1.5lbs down since last dose, 1.5lbs lost since starting program. 3. No history MTC or MEN2 or pancreatitis. 4. Concerned about future DM and OA. * HPI: ???*Wellness [facility] Aesthetics:?The risks, benefits & alternatives were discussed regarding available treatment options. A treatment path was determined after reviewing the patients medical records, our verbal discussions and via joint decision-making Consents for our planned treatments were signed and are on file. Instructed patient to have recent lab work for CBC, CMP, TSH, and A1C faxed to our office. * Medical History:? Objective: * Vitals:?Ht: 63.5 in, Wt: 200 .6 lbs, BMI:34.97Index. Assessment: * Assessment: 1.?Abnormal weight gain - R6 3.5 (Primary)???2.?Other fatigue - R53.83???3.?Other malaise - R53.81??? Plan: * Treatment: * Procedures:?[facility]: Weight Management:?tirzepatide ?Indication?weight loss ?Concentration?10 mg/mL ?Volume Administered?0.1 mL ?Dose Administered?1 mg ?Route?SQ ?Location?Right abdomen ?Frequency?weekly ?Lot Number/Expiration?Medication Source? Nutraceutical Compounding ?Adverse Reaction?None? * Follow Up:?1 Week (Reason: G LP-1 Agonist Administration) * Billing Information: * Visit Code:? * Procedure Codes:? 01696 [facility] Initial Consultation (tirzepatide). * Electronic signature of Denise Christie MD, FAAAAI on 06/08/2024 at 12:41 PM POLICY SPECIALIST Sign off status: Pending * Provider:?Davon Christie MD Date:?04/16 Generated for Yoavi tim/Drew/eTransmitting on:?06/08/2024 12:41 PM POLICY SPECIALIST History and Physical Notes * HPI (History of Present Illness) Category Sub-Category Detail Notes Category Not es *Wellness & Aesthetics The r isks, benefits & alternatives were discussed regarding available treatment options. A treatment path was determined after reviewing the patients medical records, our verbal discussions and via joint decision-making Consents for our planned treatments were signed and are on file. Instructed patient to have recent lab work for CBC, CMP, TSH, and A1C faxed to our office.
--- OUTSIDE RECORDS SUMMARY | 2024-06-08 12:41 | XMS_ITS ---
Author Organization [facility] are [place] - [facility] Address Unknown Problems Problem Status Start Date End Date HYPOTHYROIDISM, UNSPECIFIED (Primary) (E03.9 - ICD-10- CM) ACTIVE 11/13/2023 CENTRILOBULAR EMPHYSEMA (J43.2 - ICD-10-CM) ACTIVE 11/13/2023 CHRONIC RESPIRATORY FAILURE, UNSPECIFIED WHETHER WITH HYPOXIA OR HYPERCAPNIA (J96.10 - ICD-10-CM) ACTIVE 11/13/2023 ACUTE PULMONARY EDEMA (J81.0 - ICD-10-CM) ACTIVE 11/13/2023 PULMONARY FIBROSIS, UNSPECIFIED (J84.10 - ICD-10-CM) A CTIVE 11/13/2023 CHRONIC OBSTRUCTIVE PULMONAR Y DISEASE, UNSPECIFIED (J44.9 - ICD-10-CM) ACTIVE 11/13/2023 VERTIGO OF CENTRAL ORIGIN (H81.4 - ICD-10-CM) ACTIVE 11/13/2023 ESSENTIAL (PRIMARY) HYPERTENSION (I10 - ICD-10-CM) ACT FAN 11/13/2023 HYPERLIPIDEMIA, UNSPECIFIED (E78.5 - ICD-10-CM) ACTIVE 11/13/2023 NONRHEUMATIC AORTIC (VALVE) STENOSIS (I35.0 - ICD-10-C M) ACTIVE 11/13/2023 SOLITARY PULMONARY NODULE (R91.1 - ICD-10-CM) ACTIVE 11/13/2023 GASTRO-ESOPHAGEAL REFLUX DIS EASE WITHOUT ESOPHAGITIS (K21.9 - ICD-10-CM) ACTIVE 11/13/2023 OTHER SEIZURES (G40.89 - ICD-10-CM) ACTIVE 11/12 DEPRESSION, UNSPECIFIED (F32.A - ICD-10-CM) ACTIVE 11/13/2023 DIZZINESS AND GIDDINESS (R42 - ICD-10-CM) ACTIVE 11/13/2023 ADVERSE EFFECT OF OTHER DRUG S, MEDICAMENTS AND BIOLOGICAL SUBSTANCES, SUBSEQUENT ENCOUNTER (T50.995D - ICD-10-CM) ACTIVE 10/25 PERSONAL HISTORY OF MALIGNAN T NEOPLASM OF LARYNX (Z85.21 - ICD-10-CM) ACTIVE 11/13/2023 GENERALIZED ANXIETY DISORDER (F41.1 - ICD-10-CM) ACTIV E 11/13/2023 TRACHEOSTOMY STATUS (Z93.0 - ICD-10-CM) ACTIVE 0 11/13/2023 Encounters Encounter Performer Performer Role Encounter Diagnoses Location Date Discharge - Discharged to home or self care - OTHER HOME HEALTH - Private home/apt with other home health services [facility] 11/13/2023 11:11 pm EDT - 11/15/2023 04:42 pm EDT Immunizations Vaccine Date Influenza 03/28/2020 01:00 pm EDT TB 1 Step Mantoux (PPD) 11/14/2023 01:00 am EDT Social History
--- OUTSIDE RECORDS SUMMARY | 2024-06-08 12:41 | XMS_ITS | Patient Health Record ---
Author Organization [facility] Address [address] [place] [address] Care Team Providers Care Order Caller Name Role Phone Davon Christie Unavailable [phone] Reason For Referral No Information Problems Problem Type SNOMED Code ICD Code Onset Dates Problem Status W/U Status Risk Notes Problem Chronic fatigue syndrome (disorder) (42069560) Chronic fatigue, unspecified (R53.82) Active confirmed Vital Signs Temperature 99.2 degrees Fahrenheit 04/04/2024 Respiratory Rate 16 /min 04/04/2024 Oximetry 96 % 04/04/2024 Blood pressure diastolic 80 mm Hg 04/04/2024 Height 63.5 in 05/31/2024 Blood pressure systolic 142 mm Hg 04/04/2024 Weight 198.2 lbs 05/31/2024 BMI 34.56 kg/m2 05/31/2024 Encounters Encounter Location Date Provider Diagnosis [facility] [place] ([address]) [address] [place] [phone] 04/04/2024 Davon Christie Abnormal weight gain R63.5 ; Other fatigue R53.83 and Other malaise R53.81 [facility] [place] ([address]) [address] [place] [phone] 04/16/2024 Davon Christie Abnormal weight gain R63.5 ; Other fatigue R53.83 and Other malaise R53.81 [facility] [place] ([address]) [address] [place] [phone] 05/03/2024 Davon Christie Abnormal weight gain R63.5 ; Other fatigue R53.83 and Other malaise R53.81 [facility] [place] ([address]) [address] [place] [address] 05/31/2024 Davon Christie Abnormal weight gain R63.5 ; Other fatigue R53.83 and Other malaise R53.81 Assessments Encounter Date Diagnosis (ICD Code) Assessment Notes Treatment Notes Treatment Clinical Notes Section Notes 04/04/2024 Other fatigue (ICD-10 - R53.83) 04/04/2024 Abnormal weight gain (ICD-10 - R63.5) 04/16/2024 Other fatigue (ICD-10 - R53.83) 04/16/2024 Abnormal weight gain (ICD-10 - R63.5) 05/03/2024 Other fatigue (ICD-10 - R53.83) 05/03/2024 Abnormal weight gain (ICD-10 - R63.5) 05/31/2024 Other fatigue (ICD-10 - R53.83) 05/31/2024 Abnormal weight gain (ICD-10 - R63.5) 05/31/2024 Other malaise (ICD-10 - R53.81) 05/03/2024 Other malaise (ICD-10 - R53.81) 04/16/2024 Other malaise (ICD-10 - R53.81) 04/04/2024 Other malaise (ICD-10 - R53.81) Plan Of Treatment Next Appt Details Provider Name:Davon Christie , 06/28/2024 11:00:00 AM, [address] [facility] [address], [place], [address],
--- OUTSIDE RECORDS SUMMARY | 2024-06-08 12:41 | XMS_ITS ---
Author Organization [facility] Address [address] [place] [address] Care Team Providers Care Assistant Commissioner Name Role Phone Davon Christie Unavailable [phone] REASON FOR VISIT [facility], interested in peptide therapy, previously on Semaglutide for 4 weeks at 0.25 mg (last dose 04/01/24). reports no adequate appetite suppression, no side effects, Desired weight loss: 30-40 lbs, +0.2 lbs down since last dose, -1.3 lbs lost since starting program, No historyMTC or MEN2 or pancreatitis, Concerned about future DM and OA Vital Signs Height 63.5 in 05/03/2024 Weight 200.8 lbs 05/03/2024 BMI 35.01 kg/m2 05/03/2024 Encounters Encounter Location Date Provider Diagnosis [facility] [place] ([address]) [address] [place] [address] 05/03/2024 Davon Pratik Abnormal weight gain R63.5 ; Other fatigue R53.83 and Other malaise R53.81 Assessments Encounter Date Diagnosis (ICD Code) Assessment Notes Treatment Notes Treatment Clinical Notes Section Notes 05/03/2024 Abnormal weight gain (ICD-10 - R63.5) 05/03/2024 Other fatigue (ICD-10 - R53.83) 05/03/2024 Other malaise (ICD-10 - R53.81) Plan Of Treatment Next Appt Details Follow Up: 1 Week, Reason: G LP-1 Agonist Administration Provider Name:Davon SatyaMary Christie , 06/28/2024 11:00:00 AM, [address], [place], [address], Procedure Notes * Category Sub-Category Detail Notes [facility] tirzepatide Indication: weig ht loss Concentration: 10 mg/mL Volume Administered: 0.15 mL Dose Administered: 1.5 mg Inadequate orlin etite or food noise suppression, Inadequate weight loss, Increase dosing due to lack of perceived benefit Route: SQ Frequency: weekly Lot Number/Expiration: Medication Source: Nutrac eutical Compounding Adverse Reaction: None Progress Notes * Maynor HANaDOB: 6 (78 yo F)Acc No.[id number]:05/03/2024 Weight Loss Patient:?Alayna HAN Provider:?Davon Christie MD :1945???Age:78 Y???Sex:Female D ate:05/03/2024 Address:[address] [place] [address] Subjective: * Chief Complaints: * ???1. [facility], interested in peptide therapy, previously on Semaglutide for 4 weeks at 0.25 mg (last dose 04/01/24). reports no adequate appetite suppression, no side effects. 2. Desired weight loss: 30-40 lbs, +0.2 lbs down since last dose, -1.3 lbs lost since starting program. 3. No history [...] Objective: * Vitals:?Ht: 63.5 in, Wt: 200 .8 lbs, BMI:35.01Index. Assessment: * Assessment: 1.?Abnormal weight gain - R6 3.5 (Primary)???2.?Other fatigue - R53.83???3.?Other malaise - R53.81??? Plan: * Treatment: * Procedures:?[facility]:?tirzepatide ?Indication?weight loss ?Concentration?10 mg/mL ?Volume Administered?0.15 mL ?Dose Administered?1.5 mg Inadequate appetite or food noise suppression, Inadequate weight loss, Increase dosing due to lack of perceived benefit ?Route?SQ ?Frequency?weekly ?Lot Number/Expiration?Medication Source? Nutraceutical Compounding ?Adverse Reaction?None? * Follow Up:?1 Week (Reason: G LP-1 Agonist Administration) * Billing Information: * Visit Code:? * Procedure Codes:? 93513 [facility] - Weekly (tirzepatide) (0.5-5 mg) Tier 1. * Electronic signature of Denise Christie MD, FAAAAI on 06/08/2024 at 12:41 PM IT SYSTEMS ADMINISTRATOR Sign off status: Pending * Provider:?Davon Christie MD Date:?05/03 Generated for Yoavi tim/Drew/eTransmitting on:?06/08/2024 12:41 PM IT SYSTEMS ADMINISTRATOR History and Physical Notes * HPI (History [...]
--- OUTSIDE RECORDS SUMMARY | 2024-06-08 12:41 | XMS_ITS ---
Author Organization [facility] Address [address] [place] [address] Care Team Providers Care Laborer Heading Name Role Phone Davon Christie Unavailable [phone] REASON FOR VISIT [facility], interested in peptide therapy, previously on Semaglutide for 4 weeks at 0.25 mg (last dose 04/01/24). reports no adequate appetite suppression, no side effects, Desired weight loss: 30-40 lbs, -2.6 lbs down since last dose, -3.9 lbs lost since starting program, No historyMTC or MEN2 or pancreatitis, Concerned about future DM and OA Vital Signs Height 63.5 in 05/31/2024 Weight 198.2 lbs 05/31/2024 BMI 34.56 kg/m2 05/31/2024 Encounters Encounter Location Date Provider Diagnosis [facility] ([address]) [address] [place] [address] 05/31/2024 Davon Christie Abnormal weight gain R63.5 ; Other fatigue R53.83 and Other malaise R53.81 Assessments Encounter Date Diagnosis (ICD Code) Assessment Notes Treatment Notes Treatment Clinical Notes Section Notes 05/31/2024 Abnormal weight gain (ICD-10 - R63.5) 05/31/2024 Other fatigue (ICD-10 - R53.83) 05/31/2024 Other malaise (ICD-10 - R53.81) Plan Of Treatment Next Appt Details Follow Up: 1 Week, Reason: G LP-1 Agonist Administration Provider Name:Davon SatyaMary Christie , 06/28/2024 11:00:00 AM, [address], [place], [address], Procedure Notes * Category Sub-Category Detail Notes [facility] tirzepatide Indication: weig ht loss Concentration: 10 mg/mL Volume Administered: 0.2 mL Dose Administered: 2 mg Inadequate appet ite or food noise suppression, Inadequate weight loss, Increase dosing due to lack of perceived benefit Route: SQ Frequency: weekly Lot Number/Expiration: Medication Source: AH Nutrac eutical Compounding Adverse Reaction: None Progress Notes * Maynor HANaDOB: 6 (78 yo F)Acc No.[id number]:05/31/2024 Weight Loss Patient:?Alayna HAN Provider:?Davon Christie MD :1945???Age:78 Y???Sex:Female D ate:05/31/2024 Address:[address] [place] [address] Subjective: * Chief Complaints: * ???1. [facility], interested in peptide therapy, previously on Semaglutide for 4 weeks at 0.25 mg (last dose 04/01/24). reports no adequate appetite suppression, no side effects. 2. Desired weight loss: 30-40 lbs, -2.6 lbs down since last dose, -3.9 lbs lost since starting program. 3. No [...] History:? Objective: * Vitals:?Ht: 63.5 in, Wt: 198 .2 lbs, BMI:34.56Index. Assessment: * Assessment: 1.?Abnormal weight gain - R6 3.5 (Primary)???2.?Other fatigue - R53.83???3.?Other malaise - R53.81??? Plan: * Treatment: * Procedures:?[facility] Weight Management:?tirzepatide ?Indication?weight loss ?Concentration?10 mg/mL ?Volume Administered?0.2 mL ?Dose Administered?2 mg Inadequate appetite or food noise suppression, Inadequate weight loss, Increase dosing due to lack of perceived benefit ?Route?SQ ?Frequency?weekly ?Lot Number/Expiration?Medication Source? Nutraceutical Compounding ?Adverse Reaction?None? * Follow Up:?1 Week (Reason: G LP-1 Agonist Administration) * Billing Information: * Visit Code:? * Procedure Codes:? 30737 [facility] - Weekly (tirzepatide) (0.5-5 mg) Tier 1. * Electronic signature of Denise Christie MD, FAAAAI on 06/08/2024 at 12:41 PM EDUCATIONAL GUIDANCE COUNSELOR Sign off status: Pending * Provider:?Davon Christie MD Date:?05/31 Generated for Yoavi tim/Drew/eTransmitting on:?06/08/2024 12:41 PM EDUCATIONAL GUIDANCE COUNSELOR History and Physical Notes * HPI (History [...]
[2024-06-08 13:05] LABS: Free T4 Free Thyroxine 1.56 ng/dL (0.78-2.19)
[2024-06-08 13:07] LABS: Thyroid Stimulating Hormone 0.082 uIU/mL (0.465-4.680); Total Triiodothyronine (T3) 1.17 NG/ML (0.97-1.69)
== END 2024-06-08 11:29 | disposition home or self-care (01) ==
PROVIDERS: PCP Family Medicine; Visit Provider Family Medicine
DX: E03.9 Hypothyroidism, unspecified (principal)
CPT/HCPCS: 36415; 84439; 84443; 84480

== ENCOUNTER 2024-10-15 08:42 | Day surgery (SDC) | payer MEDICARE, BC, SELFPAY ==
[2024-10-08 10:48] VITALS: BMI 32.3
[2024-10-15 09:07] VITALS: BP 147/74; PULSE 103; RESP 18; TEMP 36.8; O2SAT 100
[2024-10-15] MEDS: LACTATED RINGERS 1,000 ML 150 ML IV CONT (09:19)
--- OUTSIDE RECORDS SUMMARY | 2024-10-15 09:23 | XMS_ITS | Clinical Summary ---
Author Organization [facility] Address [address] [place] [address] Care Team Providers Care Tin Whiz Machine Operator Name Role Phone Unavailable Primary Care Provider Unavailabl e Source Comments [facility],non-owned Affiliates and Associated Physician Practices is amultiple site organization consisting of ambulatory clinics and hospital sitesin [place], [place], [place] and [place]. This disclosure is being madepursuant to the Care Everywhere program and may not contain all information available regarding this patient. Last updated 18.[facility] Active Problems Problem Noted Date Diagnosed Date Chronic respiratory failure with hypoxia and hyp ercapnia 07/27/2022 Social History Tobacco Use Types Packs/Day Years Used Date Smoking Tobacco: Never Assessed Comments Unknown Sex and Gender Information Value Date Recorded Sex Assigned at Not on file Legal Sex Female 6:02 AM POLE SETTER Gender Identity Not on file Sexual Orientation Not on file Plan of Treatment Health Maintenance Due Date Last Done Comments BONE DENSITY TESTING 1945 HEPATITIS C SCREENING 09/18/1963 DTAP/TDAP/TD VACCINES (1 - Tdap) 1964 PNEUMOCOCCAL VACCINE 50+ (1 of 1 - PCV) 09/23/1995 ZOSTER VACCINE (1 of 2) 09/23/1995 Respiratory Syncytial Virus (RSV) Vaccine Pt: or over 60 yrs (1 - 1-dose 75+ series) 2020 COVID-19 VACCINE (1 - 2023-2 5 season) 2024 DEPRESSION SCREENING 06/27/2024 INFLUENZA VACCINE (Season Ended) 2025 HEPATITIS B VACCINE Aged Out No longe r eligible based on patient's age to complete this topic HIB VACCINE Aged Out No longer eligi ble based on patient's age to complete this topic HPV VACCINE Aged Out No longer eligi ble based on patient's age to complete this topic MENINGOCOCCAL (Group B) VACC INE SHARED DECISION-MAKING Aged Out No longer eligibl e based on patient's age to complete this topic MENINGOCOCCAL GROUPS A/C/Y/W VACCINE Aged Out No longer eligible b ased on patient's age to complete this topic
--- OUTSIDE RECORDS SUMMARY | 2024-10-15 09:23 | XMS_ITS | Encounter Summary ---
Author Organization [facility] Address [facility] [address] [place] [address] Care Team Providers Care Third Officer Name Role Phone Maribel Conteh MD Primary Care Provider [phone] Encounter Details Date Type Department Care Team (Late Contact Info) Description 12/01/2021 Abstract [facility] [facility], [address] [place], [place] [phone] Mary Chapman MA Social History Tobacco Use Types Packs/Day Years Used Date Smoking Tobacco: Former Cigarettes Q uit: 1950 Smokeless Tobacco: Never Alcohol Use Standard Drinks/Week Comments Yes 6.7 (1 standard drink = 0.6 oz p ure alcohol) NIGHTLY Comments Unknown Sex and Gender Information Value Date Recorded Sex Assigned at Not on file Legal Sex Female 7:11 PM CDT Gender Identity Not on file Sexual Orientation Not on file COVID-19 Exposure Response Date Recorded In the last 10 days, have yo u been in contact with someone who was confirmed or suspected to have Coronavirus/COVID-19? No / Unsure 11/30/2021 8:33 AM CDT documented as of this encounter Plan of Treatment Upcoming Encounters Date Type Department Care Team (Late st Contact Info) Description 10/22/2024 2:30 PM CDT Office Visit [facility] [facility], [address] [place], [place] [phone] Kwesi Fry MD [facility]. [address] [place], [place] [phone] Maite Bailey PA [address] [facility], [address] [place], [place] [address] 01/03/2025 9:00 AM CDT Appointment [facility] [place] [address] Dom Dunlap MD [facility]. [address] [place], [place] [address] 01/10/2025 10:45 AM CDT Office Visit [facility] [facility], [address] [place], [place] [phone] Dom Dunlap MD [facility]. [address] [place], [place] [phone] documented as of this encounter Procedures Procedure Name Priority Date/Time Associated Diagnosis Comments CBC (OUTSIDE LAB) Routine 10/27/2021 COMPREHENSIVE METABOLIC PANEL Routine 10/27/2021 documented in this encounter Results * COMPREHENSIVE METABOLIC PANEL (10/27/2021) SODIUM S/P/B 139 POTASSIUM S/P/B 3.5 CO2 30 CHLORIDE S/P/B 104 GLUCOSE 108 mg/dL CALCIUM S/P/B 9.0 BUN 23 CREATININE S/P/B 0.70 0.5 - 1.0 EGFR NON-AFR. AMER. >60 <=90 ALKALINE PHOSPHATASE S/P/B 99 ALT 25 AST 32 BILIRUBIN TOTAL S/P/B 0.5 ALBUMIN S/P/B 3.9 3.5 - 5.0 TOTAL PROTEIN S/P/B 7.0 10/27/2021 us Doc [facility] LABORATORY Final Result * CBC (OUTSIDE LAB) (10/27/2021) WBC 7.0 HGB 11.8 HCT 36.5 PLT 138 10/27/2021 us Doc [facility] Abstract LAB-OUTSIDE/ABSTRACTED Final Result documented in this encounter Visit Diagnoses Not on filedocumented in this encounter Additional Health Concerns Infection Onset Date Last Indicated Resolved Time COVID-19 Rule Out 07/26/2022 07/26/2022 07/26/2022 10:08 AM PROMOTIONAL ADVERTISING ASSISTANT COVID-19 Rule Out 07/26/2022 07/26/2022 07/26/2022 3:47 PM PROMOTIONAL ADVERTISING ASSISTANT COVID-19 Rule Out 09/23/2022 09/23/2022 09/23/2022 7:01 AM CDT documented as of this encounter Care Teams Third Officer Relationship Specialty Start Date End Date Maribel Conteh MD [address] [facility] [address] [place] [address] PCP - General FAMILY PRACTICE 11/16/21 documented as of this encounter
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
--- OUTSIDE RECORDS SUMMARY | 2024-10-15 09:24 | XMS_ITS | Clinical Summary ---
Author Organization [facility] Address [address] [place] [address] Care Team Providers Care Capital Project Engineer Name Role Phone Maribel Conteh MD Primary Care Provider [phone] Allergies No known active allergies Medications levETIRAcetam 750 MG tablet Take 1 tablet (750 mg total) by mouth 2 (two) times daily. 10/02/2021 Active benzonatate 100 MG capsule Take 1 capsule (100 mg total) by mouth 4 (four) times daily as needed for Cough. 11/24/2021 Active lamoTRIgine (LAMICTAL) 100 MG tablet Take 3 tablets (300 mg total) by mouth 2 (two) times a day. 08/25/2022 Active omeprazole (PRILOSEC) 40 MG capsule Take 1 capsule (40 mg total) by mouth 2 (two) times daily. 08/25/2022 Active vitamin C (ASCORBIC ACID) 500 MG tablet Take 2 tablets (1,000 mg total) by mouth daily. Active melatonin 10 MG tablet Take 1 tablet (10 mg total) by mouth nightly at bedtime. Active Multiple Vitamin (MULTIVITAMIN ADULT OR) Take 1 capsule by mouth daily. Active aspirin 81 MG chewable tablet Chew 1 tablet (81 mg total) by mouth daily. Active amLODIPine (NORVASC) 10 MG tablet Take 1 tablet (10 mg total) by mouth daily. 08/25/2023 Active BREZTRI AEROSPHERE 160-9-4.8 MCG/ACT Aerosol Take 2 puffs by mouth 2 (two) times daily. 10/05/2023 Active rOPINIRole (REQUIP) 1 MG tablet Take 1 tablet (1 mg total) by mouth 3 (three) times daily. Active LORazepam (ATIVAN) 1 MG tabletIndicatio ns:Anxiety Take 1 tablet (1 mg total) by mouth 3 (three) times daily as needed for Anxiety. FOR ANXIETY 10 tablet 11/11/2023 Active levothyroxine (SYNTHROID) 200 MCG tablet 200mcg po daily except Sundays 30 tablet 11/11/2023 Active cetirizine (ZYRTEC) 5 MG tablet Take 1 tablet (5 mg total) by mouth daily. 15 tablet 11/12/2023 Active rosuvastatin (CRESTOR) 10 MG tablet Take 2 tablets (20 mg total) by mouth daily. 60 tablet 11/13/2023 Active lacosamide (VIMPAT) 50 MG Tab Active meclizine (ANTIVERT) 25 MG tablet Take 1 tablet (25 mg total) by mouth. 11/29/2023 Active SSD 1 % cream APPLY A THIN LAYER TO THE AFFECTED AREA TWICE DAILY 02/23/2023 Active losartan (COZAAR) 25 MG tablet TAKE 1 TABLET(25 MG) BY MOUTH DAILY 90 tablet 03/14/2024 Active WEGOVY 0.25 mg/dose injection (PEN) Inject 0.25 mg into the skin once a week. 03/12/2024 Active lamoTRIgine (LAMICTAL) 200 MG tablet Take 1 tablet (200 mg total) by mouth 2 (two) times daily. 03/06/2024 Active Active Problems Problem Noted Date Diagnosed Date Acute pulmonary edema ([facility]) 11/13/19 24 Adverse effect of other drug s, medicaments and biological substances, subsequent encounter 11/13/2023 Depression, unspecified 11/13/2023 Gastro-esophageal reflux disease without esophag itis 11/13/2023 Other seizures ([facility]) 11/13/2023 Pulmonary fibrosis, unspecified ([facility] ) 11/13/2023 Solitary pulmonary nodule 11/13/2023 Vertigo of central origin 11/13/2023 Chronic respiratory failure, unspecified whether with hypoxia or hypercapnia ([facility]) 11/13/2023 Dizziness and giddiness 11/13/2023 Dizzinesses 11/08/2023 Chronic obstructive pulmonary disease ([facility] H HS/[facility]) 03/25/2023 Generalized anxiety disorder 03/25/2023 Personal history of malignant neoplasm of larynx 03/25/2023 Essential (primary) hypertension 03/25/2023 Hyperlipidemia, unspecified 03/25/2023 Gait disorder 12/31/2022 Pulmonary nodules/lesions, multiple 12/29/2022 Overview (01/18/2023): Last Assessment & Plan: She has multiple pulmonary nodules 3 mm or less on the most recent chest CT from 20 December 2022. I will repeat another chest CT in 6 months and she will follow-up in the clinic after the test has been performed. I did ask her to obtain a disc so that we could entered the most recent chest CT in our PACS system. Pulmonary nodules/lesions, multiple 12/29/2022 Overview (03/19/2024): Last Assessment & Plan: I have ordered another CT scan for June of 2024. Tracheitis 09/23/2022 History of laryngectomy 09/23/2022 Physical deconditioning 08/07/2022 Acute hypercapnic respiratory failure (CMS/HCC H HS/HCC) 07/27/2022 Chronic respiratory failure with hypoxia and hypercapnia (CMS/HCC HHS/HCC) 07/27/2022 PNA (pneumonia) 07/26/2022 Nonrheumatic aortic valve stenosis 01/11/2022 Assessment & Plan (03/28/2024 5:04 PM CDT): She has mild aortic valve stenosis and we can repeat an echo in 1-2 years. Assessment & Plan (07/09/2023 6:57 AM RESEARCH AND INSIGHTS EXECUTIVE): She has mild aortic valve stenosis and we can repeat an echo in 1-2 years. Assessment & Plan (01/11/2022 12:23 PM CDT): Mild on echo Repeat in 2 years Hyperlipemia 11/30/2021 Assessment & Plan (07/09/2023 6:57 AM RESEARCH AND INSIGHTS EXECUTIVE): Continue rosuvastatin. Assessment & Plan (11/30/2021 9:29 AM CDT): Continue rosuvastatin. SR (dyspnea on exertion) 11/30/2021 Assessment & Plan (03/28/2024 5:02 PM CDT): Shortness of breath seems chronic related to her COPD. However, if gets worse consider ischemic evaluation. Assessment & Plan (07/09/2023 6:56 AM RESEARCH AND INSIGHTS EXECUTIVE): Shortness of breath seems chronic related to her COPD. Assessment & Plan (01/11/2022 8:07 AM CDT): Most likely secondary to her COPD Assessment & Plan (11/30/2021 9:29 AM CDT): Shortness of breath seems chronic related to her COPD. We will get an echocardiogram to evaluate. Dizziness 11/30/2021 Assessment & Plan (07/09/2023 6:56 AM RESEARCH AND INSIGHTS EXECUTIVE): Symptoms seem to have resolved. Echo shows mild aortic stenosis. Assessment & Plan (01/11/2022 8:07 AM CDT): Echo with normal left ventricular systolic function and mild aortic valve stenosis which is not the cause of her current symptoms. Assessment & Plan (11/30/2021 9:28 AM CDT): I have recommended that she an echocardiogram to evaluate her dizziness further. Bilateral carotid artery disease 11/30/2021 Assessment & Plan (03/28/2024 5:03 PM CDT): She has bilateral carotid artery disease and follows with vascular surgery. Continue aspirin, and rosuvastatin. Assessment & Plan (11/30/2021 9:30 AM CDT): She was told that she has carotid artery disease. We will have to get her records from [facility]. Continue rosuvastatin. Centrilobular emphysema ([facility]) 2018 Overview (01/10/2023): Last Assessment & Plan: At currently requiring inhaler Tracheostomy in place ([facility]) 11/02/19 Overview (01/10/2023): Last Assessment & Plan: Continues to follow with ENT. Patient was encouraged to keep upcoming appointment for trach adjustments Tracheostomy status ([facility]) 11/01/2018 Overview (03/19/2024): Last Assessment & Plan: The patient does have an open stoma with a yo device. Centrilobular emphysema ([facility]) 2018 Overview (03/19/2024): Last Assessment & Plan: Patient continue to use Breztri two puffs twice a day. Essential hypertension 12/25/2017 Assessment & Plan (03/28/2024 5:03 PM CDT): Her blood pressure is not well controlled. Continue triamterene-HCTZ, losartan and amlodipine. Encouraged home BP monitoring. Assessment & Plan (07/09/2023 6:59 AM RESEARCH AND INSIGHTS EXECUTIVE): Her blood pressure is not well controlled. She would like to try losartan 25 mg daily. Continue triamterene-HCTZ and amlodipine. We can check a BMP in a month or 2 after starting losartan to evaluate kidney function. Assessment & Plan (01/11/2022 8:07 AM CDT): No changes Assessment & Plan (11/30/2021 9:29 AM CDT): Her blood pressure is well controlled. Continue triamterene. Resolved Problems Problem Noted Date Diagnosed Date Resolved Date Nonrheumatic aortic (valve) stenosis 11/13/2023 03/28/2024 Family History Medical History Relation Comments Cancer Brother Cancer Father NM Mother Relation Status Comments Brother Father Mother Social History Tobacco Use Types Packs/Day Years Used Date Smoking Tobacco: Former Cigarettes Q uit: 1950 Smokeless Tobacco: Never Tobacco Cessation:Counseling Given: Not Answered Alcohol Use Standard Drinks/Week Comments Yes 6.7 (1 standard drink = 0.6 oz p ure alcohol) [facility] Utilities Answer Date Recorded In the past 12 months has e [employer], [place], or water [employer] threatened to shut off services in your home? No 11/08/2023 Humiliation, Afraid, Rape, and Kick questionnair e Answer Date Recorded Within the last year, have y ou been afraid of your partner or ex-partner? No 11/08/2023 Within the last year, have y ou been humiliated or emotionally abused in other ways by your partner or ex-partner? No Within the last year, have y ou been kicked, hit, slapped, or otherwise physically hurt by your partner or ex-partner? No 11/08/2023 Within the last year, have y ou been raped or forced to have any kind of sexual activity by your partner or ex-partner? No 11/08/2023 Social Connection and Isolat ion Panel [NHANES] Answer Date Recorded In a typical week, how many times do you talk on the phone with family, friends, or neighbors? More than three times a week 07/26/2022 How often do you get togethe r with friends or relatives? More than three times a week 07/26/2022 How often do you attend chur ch or voodoo services? Never 07/26/2022 Do you belong to any clubs o r organizations such as methodist groups, unions, fraternal or athletic groups, or school groups? No 07/26/2022 How often do you attend meet ings of the clubs or organizations you belong to? Never 07/26/2022 Are you , , di vorced, , never , or living with a partner? Never 07/26/2022 AUDIT-C Answer Date Recorded Q1: How often do you have a drink containing alcohol? 4 or more times a week 07/26/2022 Q2: How many drinks containi ng alcohol do you have on a typical day when you are drinking? 1 or 2 3 Q3: How often do you have si x or more drinks on one occasion? Monthly 07/26/2022 Overall Financial Resource Strain (CARDIA) Answe r Date Recorded How hard is it for you to pa y for the very basics like food, housing, medical care, and heating? Not hard at all 11/08/2023 [facility] - Occupational Stress Questionnaire Answer Date Recorded Do you feel stress - tense, restless, nervous, or anxious, or unable to sleep at night because your mind is troubled all the time - these days? Only a little 07/26/2022 Exercise Vital Sign Answer Date Recorde d On average, how many days pe r week do you engage in moderate to strenuous exercise (like a brisk walk)? 0 days 07/26/2022 On average, how many minutes do you engage in exercise at this level? 0 min 07/26/2022 Hunger Vital Sign Answer Date Recorded Within the past 12 months, y ou worried that your food would run out before you got the money to buy more. Never true 11/08/19 24 Within the past 12 months, t he food you bought just didn't last and you didn't have money to get more. Never true 11/08/2023 PRAPARE - Transportation Answer Date Re corded In the past 12 months, has l ack of transportation kept you from medical appointments or from getting medications? Yes 10/25 In the past 12 months, has l ack of transportation kept you from meetings, work, or from getting things needed for daily living? Yes 11/08/2023 Housing Stability Vital Sign Answer Miquel e Recorded In the last 12 months, was t here a time when you were not able to pay the mortgage or rent on time? No 07/26/2022 In the last 12 months, how many places have you lived? 1 07/26/2022 In the last 12 months, was t here a time when you did not have a steady place to sleep or slept in a detention (including now)? No 07/26/2022 Housing Stability Vital Sign Answer Miquel e Recorded In the last 12 months, was t here a time when you were not able to pay the mortgage or rent on time? No 11/08/2023 In the past 12 months, how m any times have you moved where you were living? 1 11/08/2023 At any time in the past [facility], were you homeless or living in a detention (including now)? No 11/08/2023 Comments No Sex and Gender Information Value Date Recorded Sex Assigned at Not on file Legal Sex Female 7:11 PM CDT Gender Identity Not on file Sexual Orientation Not on file Last Filed Vital Signs Vital Sign Reading Time Taken Comments Blood Pressure 150/66 03/19/2024 1:07 PM CDT Pulse 88 03/19/2024 1:07 PM CDT Temperature 36.7 C (98.1 F) 11/13/2023 7:25 PM CDT Respiratory Rate 16 11/13/2023 7:25 PM CDT Oxygen Saturation 93% 03/19/2024 1:07 PM CDT Inhaled Oxygen Concentration - - Weight 93.4 kg (206 lb) 03/19/2024 1:07 PM CDT Height 167.6 cm (5' 6 ) 03/19/2024 1:07 PM CDT Body Mass Index 33.25 03/19/2024 1:07 PM CDT Plan of Treatment Upcoming Encounters Date Type Department Care Team (Late st Contact Info) Description 10/22/2024 2:30 PM CDT Office Visit [facility], [facility] [address] [place], [place] [id number] Kwesi Fry MD [facility]. [address] [place] [address] Maite Bailey PA [address] [facility], [address] [place] [address] 01/03/2025 9:00 AM CDT Appointment [facility] [place], [place] [address] Dom Dunlap MD [facility]. [address] [place], [place] [id number] 01/10/2025 10:45 AM CDT Office Visit [facility], [address] [place], [place] [id number] Dom Dunlap MD [facility]. [address] [place], [place] [id number] Health Maintenance Due Date Last Done Comments Hepatitis C 09[birth year]23/1963 DTaP, Tdap and Td Vaccines ( 1 - Tdap) 1964 Pneumococcal Vaccine: 50+ Years (1 of 2 - PCV) 1964 Zoster Vaccines (1 of 2) 09/23/1995 Annual Medicare Wellness Visit 2010 Dexa Scan (General) 2010 RSV Immunization or 60+ Years (1 - 1-dose 75+ series) 2020 COVID-19 Vaccine (4 - 2023-2 5 season) 2024 05/06/2021, 09/15/2020, 08/14/2020 Meningococcal B Vaccine Aged Out No l onger eligible based on patient's age to complete this topic Meningococcal Vaccine Aged Out No landry aaron eligible based on patient's age to complete this topic RSV Immunizations Under 20 Months Aged Out No longer eligible b ased on patient's age to complete this topic Goals Goal Patient Goal Type Associated Problems Recent Progress Patient-Stated? Author Patient will return to prior living situation and remain independent in ADLs upon discharge from hospital Lifestyle No Lacie Gutierrez RN Health - patient able to perform ADLs independently Lifestyle No Martita Wang RN Insurance MEDICARE [facility] Advance Directives * Full Code (Latest Code Status on File) Date Activated Date Inactivated Comments 11/08/2023 1:13 PM 11/13/2023 11:40 PM * POLST Date Activated Date Inactivated Comments 08/06/2022 7:09 PM 08/14/2022 3:05 PM Question Answer Comments Cardiopulmonary Resuscitatio n (CPR) If patient has no pulse and is not breathing: ATTEMPT Resuscitation CPR Medical Interventions when N OT in Cardiopulmonary Arrest (If patient is found with a pulse and/or is breathing): Selective Treatment - Do NOT Intubate Selective Treatment Options: OxygenSucti onCPAP/BIPAPIV FluidsIV Medications Documentation of discussion: Patient * POLST Date Activated Date Inactivated Comments 07/26/2022 5:44 PM 08/06/2022 5:48 PM Question Answer Comments Cardiopulmonary Resuscitatio n (CPR) If patient has no pulse and is not breathing: ATTEMPT Resuscitation CPR Medical Interventions when N OT in Cardiopulmonary Arrest (If patient is found with a pulse and/or is breathing): Selective Treatment - Do NOT Intubate Selective Treatment Options: OxygenSucti onCPAP/BIPAPIV FluidsIV Medications Documentation of discussion: Patient Care Teams Capital Project Engineer Relationship Specialty Start Date End Date Maribel Conteh MD [address] [facility] [address] [facility] [address] [place] [address] PCP - General FAMILY PRACTICE 11/16/21
--- OUTSIDE RECORDS SUMMARY | 2024-10-15 09:24 | XMS_ITS | Referral Summary ---
Author Organization [facility] Address [address] [place] [id number] Care Team Providers Care Puppet Engineer Name Role Phone Mihai Reyes MD Unavailable [phone] Maribel Conteh MD Primary Care Provider Encounters Date Type Department Care Team Description 10/04/2024 Plan of Care Documentation [facility] OP Speech Therapy [address] [place] [id number] 10/01/2024 10:00 AM CDT Therapy [facility] OP Speech Therapy [address] [place] [id number] Valeri Mcfadden, ELVIA History of laryngectomy (Primary Dx); H/O laryngectomy; Prosthesis fitting; Laryngeal cancer (HCC) 08/08/2024 1:15 PM RN COMPLIANCE Office Visit [facility] Pulmonology [address] [place] [address] [address] [place] [phone] Jerry Hernandez MD Centrilobular emphysema (HCC) (Primary Dx); Pulmonary nodules/lesions, multiple; Tracheostomy status (HCC) 07/30/2024 7:41 AM RN COMPLIANCE - 07/30/2024 11:59 PM RN COMPLIANCE [facility] [address] [place] [id number] Pulmonary nodules/lesions, multiple Discharge Disposition: Discharge to home or self care 07/19/2024 Telephone [facility] Pul[facility] [address] [place] [address] [address] [place] [address] Jerry Hernandez MD Appointment Request (Left voicemail) from Last 3 Months Allergies No known active allergies Medications LORazepam (ATIVAN) 1 mg tablet Take 1 tablet (1 mg total) by mouth 3 (three) times a day Active PARoxetine CR (PAXIL-CR) 25 mg 24 hr tablet Take 1 tablet (25 mg total) by mouth daily 11/30/19 18 Active acetaminophen 500 mg capsuleIndication s:Fever Take 2 capsules (1,000 mg total) by mouth every 6 (six) hours as needed for pain. 12/30/19 18 Active calcium carbonate (OS-AYESHA) 1,500 mg (600 mg elemental) tablet Take 1 tablet (1,500 mg total) by mouth daily Active multivitamin capsule Take 1 capsule by mouth daily Active amLODIPine (NORVASC) 5 mg tablet 0 09/28/19 19 Active benzonatate (TESSALON) 100 mg capsule Take 1 capsule (100 mg total) by mouth 4 (four) times a day 08/31/19 19 Active ascorbic acid (VITAMIN C) 500 mg tablet,chewable Take 2 tablet/chew tab (1,000 mg total) by mouth daily Active fesoterodine 8 mg tablet extended release 24 hr Toviaz 8 mg tablet,extended release Active lacosamide (VIMPAT) 50 mg tablet Active rosuvastatin (CRESTOR) 5 mg tablet Take 1 tablet (5 mg total) by mouth daily 04/14/20 20 Active triamterene-hydro CHLOROthiazide (MAXZIDE,DYAZIDE) 75-50 mg per tablet Take 1 tablet by mouth 2 (two) times a day Active omeprazole (PriLOSEC) 40 mg capsuleIndication s:Laryngopharynge al reflux (LPR) Take 1 capsule (40 mg total) by mouth 2 (two) times a day 60 capsule 3 09/20/19 21 Active levothyroxine (SYNTHROID) 200 mcg tablet Take 1 tablet (200 mcg total) by mouth every other day 08/21/19 21 Active OptiChamber Claudia-Sml Mask spacer as directed 11/08/19 21 Active OptiChamber Claudia Lg Mask spacer 10/24/19 21 Active predniSONE (DELTASONE) 10 mg tablet 07/07/19 22 Active celecoxib (CeleBREX) 200 mg capsule Take 1 capsule (200 mg total) by mouth daily 05/19/20 21 Active Breztri Aerosphere 160-9-4.8 mcg/actuation HFA aerosol inhaler Inhale 2 puffs 2 (two) times a day 08/05/19 22 Active melatonin 10 mg tablet Take 1 tablet (10 mg total) by mouth nightly Active cyanocobalamin (Vitamin B-12) 500 mcg tabletIndications :Prevention of Vitamin B12 Deficiency Take 1 tablet (500 mcg total) by mouth daily Active valerian root 100 mg capsule Take 500 mg by mouth nightly Active aspirin 81 mg enteric coated tablet Take 1 tablet (81 mg total) by mouth every morning 10/24/19 22 Active clopidogreL (PLAVIX) 75 mg tablet 10/24/19 22 Active ipratropium-albut Ashley (DUO-NEB) 0.5-2.5 mg/3 mL nebulizer solutionIndicatio ns:Chronic Obstructive Pulmonary Disease with Bronchospasms Take 3 mL by nebulization every 6 (six) hours COPD J44.9 180 mL 3 07/06/19 24 Active folic acid (FOLVITE) 1 mg tablet Take 1 tablet (1 mg total) by mouth daily Active losartan (COZAAR) 25 mg tablet Take 1 tablet (25 mg total) by mouth daily 02/18/20 23 Active rOPINIRole (REQUIP) 1 mg tablet Take 1 tablet (1 mg total) by mouth 2 (two) times a day Active amLODIPine (NORVASC) 10 mg tablet Take 1 tablet (10 mg total) by mouth daily 08/25/19 24 Active PARoxetine CR (PAXIL-CR) 37.5 mg 24 hr tablet Take 1 tablet (37.5 mg total) by mouth every morning 09/15/19 24 Active cetirizine (ZyrTEC) 5 mg tablet Take 1 tablet (5 mg total) by mouth daily 11/12/19 24 Active meclizine (ANTIVERT) 25 mg tablet Take 1 tablet (25 mg total) by mouth 3 (three) times a day as needed for dizziness 30 tablet 3 11/29/19 24 Active Wegovy 0.25 mg/0.5 mL auto-injector Inject 0.25 mg under the skin once a week 03/12/20 24 Active silver sulfadiazine (SSD) 1 % cream APPLY A THIN LAYER TO THE AFFECTED AREA TWICE DAILY 02/24/20 23 Active rosuvastatin (CRESTOR) 20 mg tablet Take 1 tablet (20 mg total) by mouth daily 03/11/20 24 Active levETIRAcetam (KEPPRA) 750 mg tabletIndications :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) Take 1 tablet (750 mg total) by mouth 2 (two) times a day 180 tablet 3 05/30/20 24 025 Active lamoTRIgine (LaMICtal) 200 mg tabletIndications :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) Take 1 tablet (200 mg total) by mouth 2 (two) times a day 180 tablet 3 05/30/20 24 Active lamoTRIgine (LaMICtal) 100 mg tabletIndications :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 I have discussed the results with the patient and her daughter and will schedule another chest CT for 4 months and she will follow up after the chest CT Assessment & Plan (01/11/2024 1:09 PM CDT): I have ordered another CT scan for June of 2024. Assessment & Plan (07/06/2023 1:41 PM RN COMPLIANCE): The patient is scheduled for her CT scan on July 15, 2023. Assessment & Plan (12/29/2022 4:09 PM CDT): She has multiple pulmonary nodules 3 mm or less on the most recent chest CT from 20 December 2022. I will repeat another chest CT in 6 months and she will follow-up in the clinic after the test has been performed. I did ask her to obtain a disc so that we could entered the most recent chest CT in our PACS system. Tracheitis 09/23/2022 History of laryngectomy 09/23/2022 Episodic weakness 05/27/2022 History of stroke 05/27/2022 Cerebrovascular accident (CVA) 12/24/2021 Memory disturbance 12/24/2021 Medication monitoring encounter 10/09/2020 Assessment & Plan (10/09/2020 2:23 PM CDT): I will obtain a phenytoin level, AST, ALT for medication level monitoring as well as surveillance screening of potential liver dysfunction associated with continued phenytoin dosing. 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 Benjamin being treated for complex partial seizures with combination phenytoin lamotrigine levetiracetam. There was good tolerability and efficacy at this time reported. I have renewed all 3 medications as previously prescribed. I will obtain Dr. Benjamin's medical records to facilitate transfer in care. I will see her back in 1 year. Tracheostomy status 11/01/2018 Assessment & Plan (08/08/2024 12:21 PM RN COMPLIANCE): The patient has an open laryngectomy stoma and she is able to cap it Assessment & Plan (01/11/2024 1:11 PM CDT): The patient does have an open stoma with a yo device. Assessment & Plan (07/06/2023 1:37 PM RN COMPLIANCE): The patient does have an open stoma with a yo device. Assessment & Plan (09/15/2022 3:16 PM CDT): Continues to follow with ENT. Patient was encouraged to keep upcoming appointment for trach adjustments Assessment & Plan (08/12/2021 1:30 PM RN COMPLIANCE): The patient continues to follow with Dr. Zarate. 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 Assessment & Plan (08/13/2020 1:42 PM RN COMPLIANCE): Patient continues to follow with Dr. Zarate Centrilobular emphysema 11/01/2018 Assessment & Plan (08/08/2024 12:21 PM RN COMPLIANCE): The patient continues to use Breztri on a p.r.n. basis. She is breathing comfortably. I did ask her to take her pediatric spacer device to her pharmacy in [place] dab it replaced since it is worn out. Assessment & Plan (01/11/2024 1:09 PM CDT): Patient continue to use Breztri two puffs twice a day. Assessment & Plan (07/06/2023 1:40 PM RN COMPLIANCE): I have sent an order for the DuoNebs to the pharmacy with the diagnosis code of Chronic obstructive pulmonary disease to see affordable for her. I did inform the patient to call back in if nebulizer solution still 100 dollars for a month supply. Assessment & Plan (12/29/2022 4:08 PM CDT): She did have mild emphysematous changes on the recent chest CT. She has tried inhalers in the past which have not improved her breathing. She is going to discuss the murmur with her water project manager later this week. Assessment & Plan (09/15/2022 3:16 PM CDT): At currently requiring inhaler Assessment & Plan (08/12/2021 1:31 PM RN COMPLIANCE): The patient is using Breztri 2 puffs b.i.d. and she is breathing comfortably. I did give her a hand written prescription for Prevnar 20. She will follow-up with me in 1 year. Assessment & Plan (08/13/2020 1:42 PM RN COMPLIANCE): The patient is not requiring any duo nebs or inhalers at this time. Mammogram abnormal 05/14/2018 Closed fracture of left proximal humerus 018 Fall 12/25/2017 Seizures 12/25/2017 Cancer 12/25/2017 Essential hypertension 12/25/2017 Left supracondylar humerus fracture 12/25/2017 Therapy 12/25/2017 Laceration of right elbow 12/25/2017 Subdural hematoma 12/25/2017 Acute pain due to trauma 12/25/2017 Immunizations Immunization Administration Dates Next Due Influenza, Quadrivalent, Hig h Dose, Preservative Free, Intrr 03/28/2020 Tdap 12/24/2017(Deferred: Patient Refused - Pt had tetanus shot 1 yr ago) Social History Tobacco Use Types Packs/Day Years Used Date Smoking Tobacco: Former Cigarettes 1 35 1 960 - 1994 Smokeless Tobacco: Never Tobacco Cessation:Counseling Given: Not Answered Alcohol Use Standard Drinks/Week Comments Yes 5 (1 standard drink = 0.6 oz pur e alcohol) weekly AUDIT-C Answer Date Recorded Q1: How often do you have a drink containing alc ohol? 2-3 times a week 10/02/2021 Average Number of Drinks Not on file 022 Q3: How often do you have si x or more drinks on one occasion? Never 10/02/2021 Personal Safety Answer Date Recorded Have you ever been in or are you currently in a harmful physical or emotional relationship or is someone making you feel afraid or unsafe? Denies 09/23/2022 Comments No Sex and Gender Information Value Date Recorded Sex Assigned at Not on file Legal Sex Female 2:26 PM CDT Gender Identity Not on file Sexual Orientation Not on file Last Filed Vital Signs Vital Sign Reading Time Taken Comments Blood Pressure 146/73 08/08/2024 12:03 PM RN COMPLIANCE Pulse 76 08/08/2024 12:03 PM RN COMPLIANCE Temperature 36.1 C (97 F) 08/08/2024 12:03 PM RN COMPLIANCE Respiratory Rate 18 08/08/2024 12:03 PM RN COMPLIANCE Oxygen Saturation 95% 08/08/2024 12:03 PM RN COMPLIANCE Inhaled Oxygen Concentration - - Weight 90.3 kg (199 lb) 08/08/2024 12:03 PM RN COMPLIANCE Height 165.1 cm (5' 5 ) 08/08/2024 12:03 PM RN COMPLIANCE Body Mass Index 33.12 08/08/2024 12:03 PM RN COMPLIANCE Plan of Treatment Not on file Procedures Procedure Name Priority Date/Time Associated Diagnosis Comments CT CHEST WO CONTRAST Schedule Routine, Read Routine (OP Routine) 07/30/2024 7:48 AM RN COMPLIANCE Pulmonary nodules/lesions, multiple from Last 3 Months Results * CT Chest WO Contrast (07/30/2024 7:48 AM RN COMPLIANCE) Anatomical Region Laterality Modality Body N/A Computed Tomogra phy 07/31/2024 8:00 AM RN COMPLIANCE Narrative 07/31/2024 8:10 AM RN COMPLIANCE EXAM DESCRIPTION: CT CHEST WO CONTRAST REASON FOR STUDY: Lung nodule, > 8mm Lung nodule, multiple < 6mm, follow up exam, Follow-up multiple pulmonary nodules last seen on CT Chest done 07/15/23 TECHNIQUE: CT scan of the chest performed without intravenous contrast using helical scanning technique. Reconstructed coronal and sagittal MPR images reviewed. All images stored on PACS. Automated exposure control was used as a dose optimization technique for this examination. COMPARISON: 07/15/2023. FINDINGS: The sensitivity for detection of solid visceral lesions is diminished without the use of intravenous contrast. LUNGS: Central airways are patent. Mild fibrotic change with peripheral interstitial thickening. There is a right lower lobe pulmonary nodule 0.7 cm (series 3, image 207). This is new from the prior study. There is a nodule posterior right upper lobe which is unchanged, this is 0.4 cm (image 116). Mild biapical pleuroparenchymal scarring. PLEURA: No pleural effusion or pneumothorax. MEDIASTINUM/HUY: No mediastinal or hilar mass. Granulomatous calcification right hilum. HEART: Heart size normal. Small pericardial effusion. Prominent mitral annular calcification is noted. CORONARY ARTERY CALCIFICATION: No significant scratch the coronary artery calcifications are noted. VASCULATURE: Thoracic aorta nonaneurysmal. AXILLA: No axillary lymphadenopathy. CHEST WALL: No chest wall mass or subcutaneous emphysema. HARDWARE/LINES/TUBES: None. UPPER ABDOMEN: In the included upper abdomen, cholecystectomy noted. MUSCULOSKELETAL: Bone windows demonstrate no acute or aggressive osseous abnormality. OTHER: No other significant abnormality. IMPRESSION: New right lower lobe pulmonary nodule 0.7 cm. Three-month follow-up chest CT recommended. Per Fleischner Society Guidelines, non-contrast chest CT at 3-6 months is recommended. If the nodules are stable at time of repeat CT, then future CT at 18-24 months (from today's scan) is considered optional for low-risk patients, but is recommended for high-risk patients. Unchanged right upper lobe pulmonary nodule 0.4 cm. Mild fibrotic change. Small pericardial effusion. Cholecystectomy. THIS IS AN ELECTRONICALLY VERIFIED FINAL REPORT 07/31/2024 8:10 AM - Electronically signed by Migel Candelario M.D. T: Report ID: [id number] Reading Location: [place] [address] Procedure Note Migel Candelario Jr., MD - 07/31/2024 EXAM DESCRIPTION: CT CHEST WO CONTRAST REASON FOR STUDY: Lung nodule, > 8mm Lung nodule, multiple < 6mm, follow up exam, Follow-up multiplepulmonary nodules last seen on CT Chest done 07/15/23 TECHNIQUE: CT scan of the chest performed without intravenous contrastusing helical scanning technique. Reconstructed coronal and sagittal MPR images reviewed. All images stored on PACS. Automated exposure control was usedas a dose optimization technique for this examination. COMPARISON: 07/15/2023. FINDINGS: The sensitivity for detection of solid visceral lesions is diminished without the use of intravenous contrast. LUNGS: Central airways are patent. Mild fibrotic change with peripheral interstitial thickening. There is a right lower lobe pulmonary nodule 0.7cm (series 3, image 207). This is new from the prior study. There is anodule posterior right upper lobe which is unchanged, this is 0.4 cm (image 116). Mild biapical pleuroparenchymal scarring. PLEURA: No pleural effusion or pneumothorax. MEDIASTINUM/HUY: No mediastinal or hilar mass. Granulomatouscalcification right hilum. HEART: Heart size normal. Small pericardial effusion. Prominentmitral annular calcification is noted. CORONARY ARTERY CALCIFICATION: No significant scratch the coronary artery calcifications are noted. VASCULATURE: Thoracic aorta nonaneurysmal. AXILLA: No axillary lymphadenopathy. CHEST WALL: No chest wall mass or subcutaneous emphysema. HARDWARE/LINES/TUBES: None. UPPER ABDOMEN: In the included upper abdomen, cholecystectomy noted. MUSCULOSKELETAL: Bone windows demonstrate no acute or aggressive osseous abnormality. OTHER: No other significant abnormality. IMPRESSION: New right lower lobe pulmonary nodule 0.7 cm. Three-month follow-up chestCT recommended. Per Fleischner Society Guidelines, non-contrast chest CT at3-6 months is recommended. If the nodules are stable at time of repeat CT,then future CT at 18-24 months (from today's scan) is considered optional for low-risk patients, but is recommended for high-risk patients. Unchanged right upper lobe pulmonary nodule 0.4 cm. Mild fibrotic change. Small pericardial effusion. Cholecystectomy. THIS IS AN ELECTRONICALLY VERIFIED FINAL REPORT 07/31/2024 8:10 AM - Electronically signed by Migel Candelario M.D. 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 CT PROCEDURES Final Result from Last 3 Months Insurance MEDICARE [facility] [employer]AL MEDICARE [facility] Advance Directives For more information, please contact: [phone] * Full Code (Latest Code Status on File) Date Activated Date Inactivated Comments 09/24/2022 12:31 AM 09/25/2022 6:05 PM * Full Code Date Activated Date Inactivated Comments 02/12/2021 1:05 PM 02/12/2021 7:10 PM * Full Code Date Activated Date Inactivated Comments 12/24/2017 10:30 PM 12/29/2017 6:41 PM Care Teams Puppet Engineer Relationship Specialty Start Date End Date Maribel Conteh MD [address] [facility] [address] [facility] [address] [place] [address] PCP - General Family Medicine 08/13/20 Mihai Reyes MD [address] [place] [id number] 04/24/18
--- OUTSIDE RECORDS SUMMARY | 2024-10-15 09:24 | XMS_ITS | Clinical Summary ---
Author Organization [facility] Address [address] [place] [id number] Care Team Providers Care Application Dba Name Role Phone Mihai Reyes MD Unavailable [phone] Maribel Conteh MD Primary Care Provider Allergies No known active allergies Medications LORazepam [...] 12/29/2022 Assessment & Plan (08/08/2024 12:21 PM RESIDENTIAL LEASING AGENT): The patient had a new 7 mm [...] 2024. Assessment & Plan (07/06/2023 1:41 PM RESIDENTIAL LEASING AGENT): The patient is scheduled for her CT [...] 11/01/2018 Assessment & Plan (08/08/2024 12:21 PM RESIDENTIAL LEASING AGENT): The patient has an open laryngectomy stoma and she is able to cap it Assessment & Plan (01/11/2024 1:11 PM CDT): The patient does have an open stoma with a yo device. Assessment & Plan (07/06/2023 1:37 PM RESIDENTIAL LEASING AGENT): The patient does have an open stoma with a yo device. Assessment & Plan (09/15/2022 3:16 PM CDT): Continues to follow with ENT. Patient was encouraged to keep upcoming appointment for trach adjustments Assessment & Plan (08/12/2021 1:30 PM RESIDENTIAL LEASING AGENT): The patient continues to follow with Dr. Zarate. 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 Assessment & Plan (08/13/2020 1:42 PM RESIDENTIAL LEASING AGENT): Patient continues to follow with Dr. Zarate Centrilobular emphysema 11/01/2018 Assessment & Plan (08/08/2024 12:21 PM RESIDENTIAL LEASING AGENT): The patient continues to use Breztri on a p.r.n. basis. She is breathing comfortably. I did ask her to take her pediatric spacer device to her pharmacy in [place] dab it replaced since it is worn out. Assessment & Plan (01/11/2024 1:09 PM CDT): Patient continue to use Breztri two puffs twice a day. Assessment & Plan (07/06/2023 1:40 PM RESIDENTIAL LEASING AGENT): I have sent an order for the [...] going to discuss the murmur with her engineering technician parking later this week. Assessment & Plan (09/15/2022 3:16 PM CDT): At currently requiring inhaler Assessment & Plan (08/12/2021 1:31 PM RESIDENTIAL LEASING AGENT): The patient is using Breztri 2 puffs b.i.d. and she is breathing comfortably. I did give her a hand written prescription for Prevnar 20. She will follow-up with me in 1 year. Assessment & Plan (08/13/2020 1:42 PM RESIDENTIAL LEASING AGENT): The patient is not requiring any duo nebs or inhalers at this time. Mammogram abnormal 05/14/2018 Closed fracture of left proximal humerus 018 Fall 12/25/2017 Seizures 12/25/2017 Cancer 12/25/2017 Essential hypertension 12/25/2017 Left supracondylar humerus fracture 12/25/2017 Therapy 12/25/2017 Laceration of right elbow 12/25/2017 Subdural hematoma 12/25/2017 Acute pain due to trauma 12/25/2017 Encounters Date Type Department Care Team Description 10/04/2024 Plan of Care Documentation [facility] Speech Therapy [address] [place] [id number] 10/01/2024 10:00 AM CDT Therapy [facility] Speech Therapy [address] [place] [id number] Valeri Mcfadden, DRIVER SUPERVISOR History of laryngectomy (Primary Dx); H/O laryngectomy; Prosthesis fitting; Laryngeal cancer (HCC) 08/08/2024 1:15 PM RESIDENTIAL LEASING AGENT Office Visit [facility] Pulmonology [address] [place] [address] [address] [place] [address] Jerry Hernandez MD Centrilobular emphysema (HCC) (Primary Dx); Pulmonary nodules/lesions, multiple; Tracheostomy status (HCC) 07/30/2024 7:41 AM RESIDENTIAL LEASING AGENT - 07/30/2024 11:59 PM RESIDENTIAL LEASING AGENT Hospital [facility] [address] [place] [address] Pulmonary nodules/lesions, multiple Discharge Disposition: Discharge to home or self care 07/19/[address] [facility] [address] [facility] [address] [place] [phone] Jerry Hernandez MD Appointment Request (Left voicemail) from Last 3 Months Immunizations Immunization Administration Dates Next Due Influenza, Quadrivalent, Hig h Dose, Preservative Free, Intrr 03/28/2020 Tdap 12/24/2017(Deferred: Patient Refused - Pt had tetanus shot 1 yr ago) Surgical History Surgery Date Site/Laterality Comments THROAT SURGERY HYSTERECTOMY TRACHEOSTOMY CHOLECYSTECTOMY Medical History Medical History Date Comments Seizures (HCC) Cancer (HCC) HTN (hypertension) Depression Thyroid disease Arthritis Throat cancer (HCC) Anxiety History of radiation therapy High cholesterol COPD (chronic obstructive pulmonary disease) (HC C) Anxiety Cerebrovascular accident (CVA) (HCC) 12/24/2021 Family History Medical History Relation Name Comments Liver cancer Brother Lung cancer Brother Throat cancer Brother Alcohol abuse Father Throat cancer Father lung problems Father Stroke Maternal Grandmother COPD Mother Heart disease Mother Hypertension Mother Stroke Mother lung problems Mother COPD Sister 1 sri COPD Sister 2 elie Lung cancer Sister 2 elie No Known Problems Sister 3 jackson Cancer Sister 4 tawanna Cancer Sister 5 Relation Name Status Comments Brother Alive Father Maternal Grandmother stroke Mother Sister 1 sri Alive Sister 2 elie Alive Sister 3 jackson Alive Sister 4 tawanna Alive Sister 5 Social History Tobacco Use Types Packs/Day Years [...] on file Sexual Orientation Not on file Obstetrics History Last Filed Vital Signs Vital Sign Reading Time Taken Comments Blood Pressure 146/73 08/08/2024 12:03 PM RESIDENTIAL LEASING AGENT Pulse 76 08/08/2024 12:03 PM RESIDENTIAL LEASING AGENT Temperature 36.1 C (97 F) 08/08/2024 12:03 PM RESIDENTIAL LEASING AGENT Respiratory Rate 18 08/08/2024 12:03 PM RESIDENTIAL LEASING AGENT Oxygen Saturation 95% 08/08/2024 12:03 PM RESIDENTIAL LEASING AGENT Inhaled Oxygen Concentration - - Weight 90.3 kg (199 lb) 08/08/2024 12:03 PM RESIDENTIAL LEASING AGENT Height 165.1 cm (5' 5 ) 08/08/2024 12:03 PM RESIDENTIAL LEASING AGENT Body Mass Index 33.12 08/08/2024 12:03 PM RESIDENTIAL LEASING AGENT Plan of Treatment Health Maintenance Due Date Last Done Comments Depression Screening 1945 Hepatitis C Screening 1945 Osteoporosis Screening-Bone Density Scan 1945 DTaP/Tdap/Td Vaccine (1 - Tdap) 1956 Hepatitis B Screening 09/23/1963 Pneumococcal vaccine 65+ (1 of 2 - PCV) 1964 Zoster Vaccine (1 of 2) 09/23/1995 Well Visit 65+ 2010 Fall Risk Assessment 09/26/2023 09/25/2022 Influenza Vaccine (Season Ended) 2025 03/28/20 20 Procedures Procedure Name Priority Date/Time Associated Diagnosis Comments CT CHEST WO CONTRAST Schedule Routine, Read Routine (OP Routine) 07/30/2024 7:48 AM RESIDENTIAL LEASING AGENT Pulmonary nodules/lesions, multiple from Last 3 Months Results * CT Chest WO Contrast (07/30/2024 7:48 AM RESIDENTIAL LEASING AGENT) Anatomical Region Laterality Modality Body N/A Computed Tomogra phy 07/31/2024 8:00 AM RESIDENTIAL LEASING AGENT Narrative 07/31/2024 8:10 AM RESIDENTIAL LEASING AGENT EXAM DESCRIPTION: CT CHEST WO CONTRAST REASON [...] by Migel Candelario M.D. T: Report ID: [id number] Reading Location: [place] [address] Procedure Note Migel Candelario Jr., MD - [...] by Migel Candelario M.D. T: Report ID: [id number] Reading Location: [id number] Yvette Kim EVENTS ASSOCIATE IMG CT PROCEDURES Final Result from Last 3 Months Insurance MEDICARE [facility] Address: [address] [place] [address] MEDICARE [facility] [employer] Advance Directives For more information, please contact: [phone] * Full Code (Latest Code Status on File) Date Activated Date Inactivated Comments 09/24/2022 12:31 AM 09/25/2022 6:05 PM * Full Code Date Activated Date Inactivated Comments 02/12/2021 1:05 PM 02/12/2021 7:10 PM * Full Code Date Activated Date Inactivated Comments 12/24/2017 10:30 PM 12/29/2017 6:41 PM Care Teams Application Dba Relationship Specialty Start Date End Date Maribel Conteh MD [address] [facility] [address] [place] [address] PCP - General Family Medicine 08/13/20 Mihai Reyes MD [address] [place] [id number] 04/24/18
--- OUTSIDE RECORDS SUMMARY | 2024-10-15 09:24 | XMS_ITS ---
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 Assessment & Plan (07/06/2023 1:41 PM TESTER EQUIPMENT): The patient is scheduled for her CT [...] as previously prescribed. I will obtain Dr. Bejnamin's medical records to facilitate transfer in care. I will see her back in 1 year. Tracheostomy status 11/01/2018 Assessment & Plan (08/08/2024 12:21 PM TESTER EQUIPMENT): The patient has an open laryngectomy stoma and she is able to cap it Assessment & Plan (01/11/2024 1:11 PM CDT): The patient does have an open stoma with a yo device. Assessment & Plan (07/06/2023 1:37 PM TESTER EQUIPMENT): The patient does have an open stoma with a yo device. Assessment & Plan (09/15/2022 3:16 PM CDT): Continues to follow with ENT. Patient was encouraged to keep upcoming appointment for trach adjustments Assessment & Plan (08/12/2021 1:30 PM TESTER EQUIPMENT): The patient continues to follow with Dr. Zarate. 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 Assessment & Plan (08/13/2020 1:42 PM TESTER EQUIPMENT): Patient continues to follow with Dr. Zarate Centrilobular emphysema 11/01/2018 Assessment & Plan (08/08/2024 12:21 PM TESTER EQUIPMENT): The patient continues to use Breztri on a p.r.n. basis. She is breathing comfortably. I did ask her to take her pediatric spacer device to her pharmacy in [place] dab it replaced since it is worn out. Assessment & Plan (01/11/2024 1:09 PM CDT): Patient continue to use Breztri two puffs twice a day. Assessment & Plan (07/06/2023 1:40 PM TESTER EQUIPMENT): I have sent an order for the [...] going to discuss the murmur with her upper cutter later this week. Assessment & Plan (09/15/2022 3:16 PM CDT): At currently requiring inhaler Assessment & Plan (08/12/2021 1:31 PM TESTER EQUIPMENT): The patient is using Breztri 2 puffs b.i.d. and she is breathing comfortably. I did give her a hand written prescription for Prevnar 20. She will follow-up with me in 1 year. Assessment & Plan (08/13/2020 1:42 PM TESTER EQUIPMENT): The patient is not requiring any duo nebs or inhalers at this time. Mammogram abnormal 05/14/2018 Closed fracture of left proximal humerus 018 Fall 12/25/2017 Seizures 12/25/2017 Cancer 12/25/2017 Essential hypertension 12/25/2017 Left supracondylar humerus fracture 12/25/2017 Therapy 12/25/2017 Laceration of right elbow 12/25/2017 Subdural hematoma 12/25/2017 Acute pain due to trauma 12/25/2017 Current Treatment and Therapy Plans No current plan information found. Past Treatment and Therapy Plans No past plan information found. Lifetime Dose Tracking * Chemical Lifetime Dose Automatic Entry Manual Entr y Fluoro Time 5.6 minutes 5.6 minutes 0 minutes Air kerma at the reference point (Ka,r) 95.2 mGy 9 5.2 mGy 0 mGy DLP 1,073 mGycm 1,073 mGycm 0 mGycm
[2024-10-15 09:29] VITALS: BP 125/57; PULSE 91; RESP 23; O2SAT 94
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
[2024-10-15 10:09] VITALS: BP 113/48; PULSE 87; RESP 21; O2SAT 100
[2024-10-15 10:19] VITALS: BP 117/52; PULSE 92; RESP 24; O2SAT 100
== END 2024-10-15 10:43 | disposition home or self-care (01) ==
PROVIDERS: PCP Family Medicine; Referring Provider Family Medicine; Visit Provider Internal Medicine Gastroenterology
PROC: 0DJD8ZZ Inspection of Lower Intestinal Tract, Via Natural or Artificial Opening Endoscopic (ICD-10-PCS; CPT 45378; principal; 2024-10-15 18:00)
DX: D12.3 Benign neoplasm of transverse colon (principal); D12.8 Benign neoplasm of rectum; E78.5 Hyperlipidemia, unspecified; I10 Essential (primary) hypertension; E55.9 Vitamin D deficiency, unspecified; G25.81 Restless legs syndrome; F41.9 Anxiety disorder, unspecified; F33.8 Other recurrent depressive disorders; R56.9 Unspecified convulsions; D61.818 Other pancytopenia; M51.369 Other intervertebral disc degeneration, lumbar region without mention of lumbar back pain or lower extremity pain; E05.80 Other thyrotoxicosis without thyrotoxic crisis or storm; E66.9 Obesity, unspecified; Z68.32 Body mass index [BMI] 32.0-32.9, adult; Z79.82 Long term (current) use of aspirin; Z79.51 Long term (current) use of inhaled steroids; Z79.85 Long-term (current) use of injectable non-insulin antidiabetic drugs; Z98.890 Other specified postprocedural states; Z93.0 Tracheostomy status; Z87.891 Personal history of nicotine dependence; Z86.79 Personal history of other diseases of the circulatory system; Z85.818 Personal history of malignant neoplasm of other sites of lip, oral cavity, and pharynx; Z82.49 Family history of ischemic heart disease and other diseases of the circulatory system
CPT/HCPCS: 45385; 88305; J2003; J2704; J7120

== ENCOUNTER 2024-11-09 16:05 | Outpatient (CLI) | payer MEDICARE, BC, SELFPAY ==
--- NOTE | ~2024-11-09 | US_ITS ---
RIGHT LOWER EXTREMITY VENOUS ULTRASOUND Ordering provider: Farrah Tee PA-C History: . M79.89 - Other specified soft tissue disorders . Comparison: None. FINDINGS: --COMMON FEMORAL: Patent and free of thrombus. Normal compressibility, phasic flow and augmentation. --PROXIMAL SUPERFICIAL FEMORAL: Patent and free of thrombus. Normal compressibility, phasic flow and augmentation. --DISTAL SUPERFICIAL FEMORAL: Patent and free of thrombus. Normal compressibility, phasic flow and au gmentation. --POPLITEAL: Patent and free of thrombus. Normal compressibility, phasic flow and augmentation. --POSTERIOR TIBIAL: Patent and free of thrombus. Normal compressibility, phasic flow and augmentation . IMPRESSION: Negative right lower extremity venous US. No deep vein thrombosis. Reviewed, dictated and finalized at location A.
--- OUTSIDE RECORDS SUMMARY | 2024-11-09 16:07 | XMS_ITS | Encounter Summary ---
Author Organization [facility] Address [facility] [place] [address] Care Team Providers Care Site Safety Representative Name Role Phone Freddie Maya MD Primary Care Provider [phone] Encounter Details Date Type Department Care Team (Late st Contact Info) Description 11/01/2024 Results Follow-Up [address] [address] Yasmin Murphy, RN LIPID PANEL Social History Tobacco Use Types Packs/Day Years Used Date Smoking Tobacco: Former Cigarettes Q uit: 1950 Smokeless Tobacco: Never Alcohol Use Standard Drinks/Week Comments Yes 6.7 (1 standard drink = 0.6 oz p ure alcohol) [facility] Utilities Answer Date Recorded In the past 12 months has [facility] [employer], gas, oil, or water [employer] threatened to shut off services in your [...] often do you attend chur ch or sikh services? Never 07/26/2022 Do you belong to any clubs o r organizations such as christian groups, unions, fraternal or athletic groups, or [...] and heating? Not hard at all 11/08[facility]2023 [facility] Health - Occupational Stress Questionnaire Answer Date Recorded [...] place to sleep or slept in a nursing home (including now)? No 07/26/2022 Housing Stability Vital Sign Answer Miquel e Recorded In the last 12 months, was t here a time when you were not able to pay the mortgage or rent on time? No 11/08/2023 In the past 12 months, how m any times have you moved where you were living? 1 11/08/2023 At any time in the past 12 m [facility], were you homeless or living in a nursing home (including now)? No 11/08/2023 Comments No Sex and Gender Information Value Date Recorded Sex Assigned at Not on file Legal Sex Female 7:11 PM CDT Gender Identity Not on file Sexual Orientation Not on file documented as of this encounter Functional Status * Are you deaf or do you have serious difficulty hearing Answer Date of Assessment Author Status No 11/08/2023 6:00 PM Skyla De RN Active * Are you blind or do you have serious difficulty seeing, even when wearing glasses? Answer Date of Assessment Author Status No 11/08/2023 6:00 PM Skyla De RN Active * Do you have serious difficulty walking or climbing stairs? Answer Date of Assessment Author Status Yes 11/08/2023 6:00 PM Skyla De RN Active * Do you have difficulty dressing or bathing? Answer Date of Assessment Author Status No 11/08/2023 6:00 PM Skyla De RN Active * Because of a physical, mental, or emotional condition, do you have difficulty doing errands alone such as visiting a doctor's office or shopping? Answer Date of Assessment Author Status No 11/08/2023 6:00 PM CDT Skyla Rosales RN Active documented as of this encounter Mental Status * Because of a physical, mental, or emotional condition, do you have serious difficulty concentrating, remembering, or making decisions? Answer Entry Date Author Status No 11/08/2023 6:00 PM CDT Skyla Rosales RN Active documented in this encounter Plan of Treatment Upcoming Encounters Date Type Department Care Team (Late st Contact Info) Description 11/30/2024 10:30 AM CDT Appointment [facility] Non [place]vasive [place] [address] Maite Bailey PA [address] [facility], [facility] [address] [place] [address] 01/03/2025 9:00 AM CDT Appointment [facility] [place] [address] Dom Dunlap MD [facility]. [facility] [address] [place] [address] 01/10/2025 10:45 AM CDT Office Visit [facility], [place] [address] [place] [address] Dom Dunlap MD [facility]. [facility] [address] [place], [place] [address] 05/20/2025 12:30 PM PHYSICIAN RELATIONS SPECIALIST Office Visit [facility], [facility] [address] [place], [place] [address] Kwesi Fry MD [facility] [address] [place] [address] documented as of this encounter Goals Goal Patient Goal Type Associated Problems Recent Progress Patient-Stated? Author Patient will return to prior living situation and remain independent in ADLs upon discharge from hospital Lifestyle No Lacie Gutierrez RN Health - patient able to perform ADLs independently Lifestyle No Martita Wang RN documented as of this encounter Visit Diagnoses Not on filedocumented in this encounter Care Teams Site Safety Representative Relationship Specialty Start Date End Date Freddie Maya MD [address] [place] [address] PCP - General FAMILY PRACTICE 10/22/24 documented as of this encounter
--- OUTSIDE RECORDS SUMMARY | 2024-11-09 16:07 | XMS_ITS | Clinical Summary ---
Author Organization [facility] Address [address] [place] [address] Care Team Providers Care Progress Man Name Role Phone Freddie Maya MD Primary Care Provider [phone] Allergies No known active allergies Medications levETIRAcetam 750 MG tablet Take 1 tablet (750 mg total) by mouth 2 (two) times daily. 2 Active benzonatate 100 MG capsule Take 1 capsule (100 mg total) by mouth 4 (four) times daily as needed for Cough. 2 Active omeprazole (PRILOSEC) 40 MG capsule Take 1 capsule (40 mg total) by mouth 2 (two) times daily. 3 Active vitamin C (ASCORBIC ACID) 500 MG [...] tablet (10 mg total) by mouth daily. 4 Active BREZTRI AEROSPHERE 160-9-4.8 MCG/ACT Aerosol Take 2 puffs by mouth 2 (two) times daily. 4 Active rOPINIRole (REQUIP) 1 MG tablet Take 1 tablet (1 mg total) by mouth 3 (three) times daily. Active LORazepam (ATIVAN) 1 MG tabletIndicati ons:Anxiety Take 1 tablet (1 mg total) by mouth 3 (three) times daily as needed for Anxiety. FOR ANXIETY 10 tablet 4 Active cetirizine (ZYRTEC) 5 MG tablet Take 1 tablet (5 mg total) by mouth daily. 15 tablet 4 Active rosuvastatin (CRESTOR) 10 MG tablet Take 2 tablets (20 mg total) by mouth daily. 60 tablet 4 Active meclizine (ANTIVERT) 25 MG tablet Take 1 tablet (25 mg total) by mouth. 4 Active SSD 1 % cream APPLY A THIN LAYER TO THE AFFECTED AREA TWICE DAILY 3 Active losartan (COZAAR) 25 MG tablet TAKE 1 TABLET(25 MG) BY MOUTH DAILY 90 tablet 4 Active levothyroxine (SYNTHROID) 200 MCG tablet Take by mouth daily. 4 Active rosuvastatin (CRESTOR) 10 MG tablet Take 2 tablets (20 mg total) by mouth daily. 4 Active Spacer/Aero-Ho lding Chambers (OPTICHAMBER KOBY) Misc USE DIRECTED TWICE A DAY 5 Active lamoTRIgine (LAMICTAL) 100 MG tablet Take 3 tablets (300 mg total) by mouth 2 (two) times a day. 3 025 Discontinued levothyroxine (SYNTHROID) 200 MCG tablet 200mcg po daily except Sundays 30 tablet 4 025 Discontinued lacosamide (VIMPAT) 50 MG Tab 025 Discontinued WEGOVY 0.25 mg/dose injection (PEN) Inject 0.25 mg into the skin once a week. 4 025 Discontinued lamoTRIgine (LAMICTAL) 200 MG tablet Take 1 tablet (200 mg total) by mouth 2 (two) times daily. 4 025 Discontinued Active Problems Problem Noted Date Diagnosed Date Acute pulmonary edema ([facility]) 11/13/19 24 Adverse effect of other drug s, medicaments and biological substances, subsequent encounter 11/13/2023 Depression, unspecified 11/13/2023 Gastro-esophageal reflux disease without esophag itis 11/13/2023 Other seizures ([facility]/HCC HHS/HCC) 11/13/2023 Pulmonary fibrosis, unspecified ([facility] HHS/[facility] ) 11/13/2023 Solitary pulmonary nodule 11/13/2023 Vertigo of central origin 11/13/2023 Dizziness and giddiness 11/13/2023 Dizzinesses 11/08/2023 Chronic obstructive pulmonary disease ([facility] H HS/HCC) 03/25/2023 Generalized anxiety disorder 03/25/2023 Personal history of malignant neoplasm of larynx 03/25/2023 Essential (primary) hypertension 03/25/2023 Gait disorder 12/31/2022 Pulmonary nodules/lesions, multiple [...] Physical deconditioning 08/07/2022 Acute hypercapnic respiratory failure ([facility] H HS/[facility]) 07/27/2022 Chronic respiratory failure with hypoxia and hypercapnia ([facility] HHS/[facility]) 07/27/2022 PNA (pneumonia) 07/26/2022 Nonrheumatic aortic valve stenosis 01/11/2022 Assessment & Plan (10/22/2024 6:59 PM CDT): Last echocardiogram showed mild aortic valve stenosis. Given increased shortness of breath and fatigue recommended repeating echocardiogram Assessment & Plan (03/28/2024 5:04 PM CDT): She has mild aortic valve stenosis and we can repeat an echo in 1-2 years. Assessment & Plan (07/09/2023 6:57 AM FOUNTAIN SERVER): She has mild aortic valve stenosis and we can repeat an echo in 1-2 years. Assessment & Plan (01/11/2022 12:23 PM CDT): Mild on echo Repeat in 2 years Hyperlipemia 11/30/2021 Assessment & Plan (10/22/2024 7:04 PM CDT): Last lipid panel with an LDL of 222. Will repeat lipid panel now. Continue rosuvastatin Assessment & Plan (07/09/2023 6:57 AM FOUNTAIN SERVER): Continue rosuvastatin. Assessment & Plan (11/30/2021 9:29 AM CDT): Continue rosuvastatin. SR (dyspnea on exertion) 11/30/2021 Assessment & Plan (10/22/2024 7:01 PM CDT): Shortness of breath seems chronic however patient reports it has worsened over the past year. Will repeat echocardiogram due to history of aortic valve stenosis. Can consider ischemic evaluation pending echo results. Assessment & Plan (03/28/2024 5:02 PM CDT): Shortness of breath seems chronic related to her COPD. However, if gets worse consider ischemic evaluation. Assessment & Plan (07/09/2023 6:56 AM FOUNTAIN SERVER): Shortness of breath seems chronic related to her COPD. Assessment & Plan (01/11/2022 8:07 AM CDT): Most likely secondary to her COPD Assessment & Plan (11/30/2021 9:29 AM CDT): Shortness of breath seems chronic related to her COPD. We will get an echocardiogram to evaluate. Dizziness 11/30/2021 Assessment & Plan (07/09/2023 6:56 AM FOUNTAIN SERVER): Symptoms seem to have resolved. Echo shows [...] carotid artery disease 11/30/2021 Assessment & Plan (10/22/2024 7:02 PM CDT): She has bilateral carotid artery disease and follows with vascular surgery. Scheduled for repeat carotid artery duplex in December. Continue aspirin and rosuvastatin. Assessment & Plan (03/28/2024 5:03 PM CDT): She has bilateral carotid artery disease and follows with vascular surgery. Continue aspirin, and rosuvastatin. Assessment & Plan (11/30/2021 9:30 AM CDT): She was told that she has carotid artery disease. We will have to get her records from [facility]. Continue rosuvastatin. Centrilobular emphysema ([facility]) 2018 Overview (01/10/2023): Last Assessment & Plan: At currently requiring inhaler Tracheostomy in place ([facility]) 11/02/19 19 Overview (01/10/2023): Last Assessment & Plan: Continues to follow with ENT. Patient was encouraged to keep upcoming appointment for trach adjustments Tracheostomy status ([facility]) 11/01/2018 Overview (03/19/2024): Last Assessment & Plan: The patient does have an open stoma with a yo device. Centrilobular emphysema ([facility]) 2018 Overview (03/19/2024): Last Assessment & Plan: Patient continue to use Breztri two puffs twice a day. Essential hypertension 12/25/2017 Assessment & Plan (10/22/2024 6:59 PM CDT): Blood pressure well-controlled in office. Continue amlodipine, losartan Assessment & Plan (03/28/2024 5:03 PM CDT): Her blood pressure is not well controlled. Continue triamterene-HCTZ, losartan and amlodipine. Encouraged home BP monitoring. Assessment & Plan (07/09/2023 6:59 AM FOUNTAIN SERVER): Her blood pressure is not well controlled. [...] Problem Noted Date Diagnosed Date Resolved Date Chronic respiratory failure, unspecified whether with hypoxia or hypercapnia ([facility]) 11/13/2023 10/22/2024 Nonrheumatic aortic (valve) stenosis 11/13/2023 03/28/2024 Hyperlipidemia, unspecified 03/25/2023 10/22/2024 Encounters Date Type Department Care Team Description 11/01/2024 Results Follow-Up [facility], [facility] [address] [place] [address] Yasmin Murphy, RN LIPID PANEL 10/31/2024 Orders Only [facility], [facility] [address] [place] [address] Maite Bailey PA 10/22/2024 2:30 PM CDT Office Visit [facility], [place] [address] [place] [address] Kwesi Fry MD Lanter, Megan N, PA Breathing Problem (8 mo f/u); Hypertension; Aortic Valve Stenosis 10/22/2024 Travel from Last 3 Months Family History Medical History Relation Comments Cancer Brother Cancer Father [place] Mother Relation Status Comments Brother Father Mother Social History Tobacco Use Types Packs/Day Years Used Date Smoking Tobacco: Former Cigarettes Q uit: 1950 Smokeless Tobacco: Never Tobacco Cessation:Counseling Given: Not Answered Alcohol Use Standard Drinks/Week Comments Yes 6.7 (1 standard drink = 0.6 oz p ure alcohol) [facility] Utilities Answer Date Recorded In the past 12 months has [facility] [employer], gas, oil, or water [employer] threatened to shut off services in your [...] week 07/26/2022 How often do you attend [facility] or anabaptism services? Never 07/26/2022 Do you belong to any clubs o r organizations such as yarsani groups, unions, fraternal or athletic groups, or [...] and heating? Not hard at all 11/08/2023 [facility] Occupat ional Health - Occupational Stress Questionnaire Answer Date [...] place to sleep or slept in a senior living (including now)? No 07/26/2022 Housing Stability Vital Sign Answer Miquel e Recorded In the last 12 months, was t here a time when you were not able to pay the mortgage or rent on time? No 11/08/2023 In the past 12 months, how m any times have you moved where you were living? 1 11/08/2023 At any time in the past 12 m [facility], were you homeless or living in a senior living (including now)? No 11/08/2023 Comments No Sex and Gender Information Value Date Recorded Sex Assigned at Not on file Legal Sex Female 7:11 PM CDT Gender Identity Not on file Sexual Orientation Not on file Last Filed Vital Signs Vital Sign Reading Time Taken Comments Blood Pressure 122/60 10/22/2024 1:40 PM CDT Pulse 99 10/22/2024 1:40 PM CDT Temperature 36.7 C (98.1 F) 11/13/2023 7:25 PM CDT Respiratory Rate 16 11/13/2023 7:25 PM CDT Oxygen Saturation 93% 10/22/2024 1:40 PM CDT Inhaled Oxygen Concentration - - Weight 87.6 kg (193 lb 3.2 oz) 10/22/2024 1:40 P M CDT Height 167.6 cm (5' 6 ) 10/22/2024 1:40 PM CDT Body Mass Index 31.18 10/22/2024 1:40 PM CDT Plan of Treatment Upcoming Encounters Date Type Department Care Team (Late st Contact Info) Description 11/30/2024 10:[address] [facility] [place] [address] Maite Bailey PA [address] [place], [place] [id number] 01/03/2025 9:00 AM CDT Appointment [facility] V[facility] Lab [address] [address] Dom Dunlap MD [facility] [address] [place] [address] 01/10/2025 10:45 AM CDT Office Visit [facility] [address] [facility] [address], [address] [place] [address] Dom Dunlap MD Three [facility]. [address] [place] [address] 05/20/2025 12:30 PM FOUNTAIN SERVER Office Visit [facility] [address] [facility] [address] [place] [address] Kwesi Fry MD Three [facility]. [address] [place], [place] [address] Health Maintenance Due Date Last Done Comments Hepatitis C 09/23/1963 DTaP, Tdap and Td Vaccines ( 1 - Tdap) 1964 Pneumococcal Vaccine: 50+ Years (1 of 2 - PCV) 1964 Zoster Vaccines (1 of 2) 09/23/1995 Annual Medicare Wellness Visit 2010 Dexa Scan (General) 2010 RSV Immunization or 60+ Years (1 - 1-dose 75+ series) 2020 COVID-19 Vaccine ( - 2023-2 5 season) 2024 05/06/2021, 09/15/2020, [...] ADLs independently Lifestyle No Martita Wang RN Procedures Procedure Name Priority Date/Time Associated Diagnosis Comments LIPID PANEL Routine 10/31/2024 from Last 3 Months Results * LIPID PANEL (10/31/2024) CHOLESTEROL 130 TRIGLYCERIDES 73 HDL 44 LDL (CALCULATED) 71 NON HDL CHOLESTEROL 86 us Default History Genericprovider LABORATORY Edited Result - Final from Last 3 Months Insurance MEDICARE [facility] Advance Directives * Full Code (Latest Code [...] Medications Documentation of discussion: Patient Care Teams Progress Man Relationship Specialty Start Date End Date Freddie Maya MD [address] [place] [address] PCP - General FAMILY PRACTICE 10/22/24
--- OUTSIDE RECORDS SUMMARY | 2024-11-09 16:07 | XMS_ITS | Clinical Summary ---
Author Organization [facility] Address [address] [place] [address] Care Team Providers Care Portable Track Line Marker Name Role Phone Unavailable Primary Care Provider Unavailabl e Source Comments [facility],non-owned Affiliates and Associated Physician Practices is amultiple site organization consisting of ambulatory clinics and hospital sitesin [place], [place], [place] and [place]. This disclosure is being madepursuant to the Care Everywhere program and may not contain all information available regarding this patient. Last updated 18.[facility] Active Problems Problem Noted Date Diagnosed Date Chronic respiratory failure with hypoxia and hyp ercapnia 07/27/2022 Social History Tobacco Use Types Packs/Day Years Used Date Smoking Tobacco: Never Assessed Comments Unknown Sex and Gender Information Value Date Recorded Sex Assigned at Not on file Legal Sex Female 6:02 AM FREE LANCE MODEL Gender Identity Not on file Sexual Orientation Not on file Plan of Treatment Health Maintenance Due Date Last Done Comments BONE DENSITY TESTING 1945 MEDICARE AWV 12 MONTHS 1945 DTAP/TDAP/TD VACCINES (1 - Tdap) 1964 PNEUMOCOCCAL VACCINE 50+ (1 of 1 - PCV) 09/23/1995 ZOSTER VACCINE (1 of 2) 09/23/1995 Respiratory Syncytial Virus (RSV) Vaccine Pt: or over 60 yrs (1 - 1-dose 75+ series) 2020 COVID-19 VACCINE ( - 2023-2 5 season) 2024 DEPRESSION SCREENING [...] on patient's age to complete this topic Insurance MEDICARE [facility] SELF PAY NO INSURANCE Member Subscriber Plan / Payer (Ef fective for All Dates) Name:Alayna Orourke Member ID:Not on file Relation to Subscriber:Not on file Name:ALAYNA OROURKE Subscriber ID:Not on file (Home) Address: [address] [place] [id number] Payer ID:Not on file Group ID:Not on file Type:Self Pay Address: [facility]
--- OUTSIDE RECORDS SUMMARY | 2024-11-09 16:07 | XMS_ITS ---
Author Organization [facility] Address [facility] [place] [address] Care Team Providers Care Chief Lock Operator Name Role Phone Mihai Reyes MD Unavailable [phone] Maribel Conteh MD Primary Care Provider Active Problems Problem Noted Date Diagnosed Date Gait disorder 12/31/2022 Pulmonary nodules/lesions, multiple 12/29/2022 Assessment & Plan (08/08/2024 12:21 PM WREATH MACHINE OPERATOR): The patient had a new 7 mm [...] 2024. Assessment & Plan (07/06/2023 1:41 PM WREATH MACHINE OPERATOR): The patient is scheduled for her CT [...] 11/01/2018 Assessment & Plan (08/08/2024 12:21 PM WREATH MACHINE OPERATOR): The patient has an open laryngectomy stoma and she is able to cap it Assessment & Plan (01/11/2024 1:11 PM CDT): The patient does have an open stoma with a yo device. Assessment & Plan (07/06/2023 1:37 PM WREATH MACHINE OPERATOR): The patient does have an open stoma with a yo device. Assessment & Plan (09/15/2022 3:16 PM CDT): Continues to follow with ENT. Patient was encouraged to keep upcoming appointment for trach adjustments Assessment & Plan (08/12/2021 1:30 PM WREATH MACHINE OPERATOR): The patient continues to follow with Dr. Zarate. 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 Assessment & Plan (08/13/2020 1:42 PM WREATH MACHINE OPERATOR): Patient continues to follow with Dr. Zarate Centrilobular emphysema 11/01/2018 Assessment & Plan (08/08/2024 12:21 PM WREATH MACHINE OPERATOR): The patient continues to use Breztri on a p.r.n. basis. She is breathing comfortably. I did ask her to take her pediatric spacer device to her pharmacy in [place] dab it replaced since it is worn out. Assessment & Plan (01/11/2024 1:09 PM CDT): Patient continue to use Breztri two puffs twice a day. Assessment & Plan (07/06/2023 1:40 PM WREATH MACHINE OPERATOR): I have sent an order for the [...] going to discuss the murmur with her director of nursing later this week. Assessment & Plan (09/15/2022 3:16 PM CDT): At currently requiring inhaler Assessment & Plan (08/12/2021 1:31 PM WREATH MACHINE OPERATOR): The patient is using Breztri 2 puffs b.i.d. and she is breathing comfortably. I did give her a hand written prescription for Prevnar 20. She will follow-up with me in 1 year. Assessment & Plan (08/13/2020 1:42 PM WREATH MACHINE OPERATOR): The patient is not requiring any duo [...]
--- OUTSIDE RECORDS SUMMARY | 2024-11-09 16:07 | XMS_ITS | Encounter Summary ---
Author Organization [facility] Address [address] [place] [address] Care Team Providers Care Mate Fishing Vessel Name Role Phone Maribel Conteh MD Primary Care Provider [phone] Freddie Maya MD Primary Care Provider [phone] Encounter Details Date Type Department Care Team (Late st Contact Info) Description 12/01/2021 Abstract [facility], [address] [place] [address] Mary Chapman MA Social History Tobacco Use [...] Info) Description 11/30/2024 10:30 AM CDT Appointment [facility] Non [place]vasive [place] [address] Maite Bailey PA [address] [facility], [address] [place] [address] 01/03/2025 9:00 AM CDT Appointment [facility] Vascular Lab [address] [address] Dom Dunlap MD [address] [place] [address] 01/10/2025 10:45 AM CDT Office Visit [facility] [address] [facility] [address], [address] [place] [address] Dom Dunlap MD [address] [place] [address] 05/20/2025 12:30 PM DROP HAMMER SET UP OPERATOR Office Visit [facility] [address] [facility] [address], [address] [place] [address] Kwesi rFy MD [facility] [address] [place] [address] documented as of this encounter Procedures Procedure Name Priority Date/Time Associated Diagnosis Comments LIPID PANEL Routine 10/31/2024 CBC (OUTSIDE LAB) Routine 10/27/2021 COMPREHENSIVE METABOLIC PANEL Routine 10/27/2021 documented in this encounter Results * LIPID PANEL (10/31/2024) Pathologist [facility] CHOLESTEROL 130 TRIGLYCERIDES 73 HDL 44 LDL (CALCULATED) 71 NON HDL CHOLESTEROL 86 us Default History Genericprovider LABORATORY Edited Result - Final * COMPREHENSIVE METABOLIC PANEL (10/27/2021) SODIUM S/P/B [...] Rule Out 07/26/2022 07/26/2022 07/26/2022 10:08 AM DROP HAMMER SET UP OPERATOR COVID-19 Rule Out 07/26/2022 07/26/2022 07/26/2022 3:47 PM DROP HAMMER SET UP OPERATOR COVID-19 Rule Out 09/23/2022 09/23/2022 09/23/2022 7:01 AM CDT documented as of this encounter Care Teams Mate Fishing Vessel Relationship Specialty Start Date End Date Maribel Conteh MD [address] [place] [address] PCP - General FAMILY PRACTICE 11/16/21 10/21/24 Freddie Maya MD [address] [place] [address] PCP - General FAMILY PRACTICE 10/22/24 documented as of this encounter
--- OUTSIDE RECORDS SUMMARY | 2024-11-09 16:08 | XMS_ITS | Clinical Summary ---
Author Organization [facility] Address [address] [place] [id number] Care Team Providers Care Nurse Chemical Dependency Name Role Phone Mihai Reyes MD Unavailable [phone] Maribel Conteh MD Primary Care Provider Allergies [...] 12/29/2022 Assessment & Plan (08/08/2024 12:21 PM VP RHEUMATOLOGY): The patient had a new 7 mm [...] 2024. Assessment & Plan (07/06/2023 1:41 PM VP RHEUMATOLOGY): The patient is scheduled for her CT [...] 11/01/2018 Assessment & Plan (08/08/2024 12:21 PM VP RHEUMATOLOGY): The patient has an open laryngectomy stoma and she is able to cap it Assessment & Plan (01/11/2024 1:11 PM CDT): The patient does have an open stoma with a yo device. Assessment & Plan (07/06/2023 1:37 PM VP RHEUMATOLOGY): The patient does have an open stoma with a yo device. Assessment & Plan (09/15/2022 3:16 PM CDT): Continues to follow with ENT. Patient was encouraged to keep upcoming appointment for trach adjustments Assessment & Plan (08/12/2021 1:30 PM VP RHEUMATOLOGY): The patient continues to follow with Dr. Zarate. 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 Assessment & Plan (08/13/2020 1:42 PM VP RHEUMATOLOGY): Patient continues to follow with Dr. Zarate Centrilobular emphysema 11/01/2018 Assessment & Plan (08/08/2024 12:21 PM VP RHEUMATOLOGY): The patient continues to use Breztri on a p.r.n. basis. She is breathing comfortably. I did ask her to take her pediatric spacer device to her pharmacy in [place] dab it replaced since it is worn out. Assessment & Plan (01/11/2024 1:09 PM CDT): Patient continue to use Breztri two puffs twice a day. Assessment & Plan (07/06/2023 1:40 PM VP RHEUMATOLOGY): I have sent an order for the [...] going to discuss the murmur with her rn neonatal later this week. Assessment & Plan (09/15/2022 3:16 PM CDT): At currently requiring inhaler Assessment & Plan (08/12/2021 1:31 PM VP RHEUMATOLOGY): The patient is using Breztri 2 puffs b.i.d. and she is breathing comfortably. I did give her a hand written prescription for Prevnar 20. She will follow-up with me in 1 year. Assessment & Plan (08/13/2020 1:42 PM VP RHEUMATOLOGY): The patient is not requiring any duo [...] Team Description 10/04/2024 Plan of Care Documentation [facility] Speech Therapy [address] [place] [id number] 10/01/2024 10:00 AM CDT Therapy [facility] Speech Therapy [address] [place] [id number] Valeri Mcfadden, PASTRY FINISHER History of laryngectomy (Primary Dx); H/O laryngectomy; Prosthesis fitting; Laryngeal cancer (HCC) from Last 3 Months Immunizations Immunization Administration [...] Comments Blood Pressure 146/73 08/08/2024 12:03 PM VP RHEUMATOLOGY Pulse 76 08/08/2024 12:03 PM VP RHEUMATOLOGY Temperature 36.1 C (97 F) 08/08/2024 12:03 PM VP RHEUMATOLOGY Respiratory Rate 18 08/08/2024 12:03 PM VP RHEUMATOLOGY Oxygen Saturation 95% 08/08/2024 12:03 PM VP RHEUMATOLOGY Inhaled Oxygen Concentration - - Weight 90.3 kg (199 lb) 08/08/2024 12:03 PM VP RHEUMATOLOGY Height 165.1 cm (5' 5 ) 08/08/2024 12:03 PM VP RHEUMATOLOGY Body Mass Index 33.12 08/08/2024 12:03 PM VP RHEUMATOLOGY Plan of Treatment Health Maintenance Due Date Last Done Comments Depression Screening 1945 Hepatitis C Screening 1945 Osteoporosis Screening-Bone Density Scan 1945 DTaP/Tdap/Td Vaccine (1 - Tdap) 1956 Hepatitis B Screening 09/23/1963 Pneumococcal vaccine 65+ (1 of 2 - PCV) 1964 Zoster Vaccine (1 of 2) 09/23/1995 Well Visit 65+ 2010 Fall Risk Assessment 09/26/2023 09/25/2022 Influenza Vaccine (Season Ended) 2025 03/28/20 20 Insurance MEDICARE [facility] Address: [address] [place] [address] MEDICARE [facility] Address: [address] [place] [address] Advance Directives For more information, please contact: [phone] * Full Code (Latest Code Status on File) Date Activated Date Inactivated Comments 09/24/2022 12:31 AM 09/25/2022 6:05 PM * Full Code Date Activated Date Inactivated Comments 02/12/2021 1:05 PM 02/12/2021 7:10 PM * Full Code Date Activated Date Inactivated Comments 12/24/2017 10:30 PM 12/29/2017 6:41 PM Care Teams Nurse Chemical Dependency Relationship Specialty Start Date End Date Maribel Conteh MD [address] [facility] [address] [place] [address] PCP - General Family Medicine 08/13/20 Mihai Reyes MD [address] [place] [place] [id number] 04/24/18
--- OUTSIDE RECORDS SUMMARY | 2024-11-09 16:08 | XMS_ITS | Referral Summary ---
Author Organization [facility] Address [address] [place] [id number] Care Team Providers Care Conservation Of Resources Commissioner Name Role Phone Mihai Reyes MD Unavailable [phone] Maribel Conteh MD Primary Care Provider Encounters Date Type Department Care Team Description 10/04/2024 Plan of Care Documentation [facility] Speech Therapy [address] [place] [id number] 10/01/2024 10:00 AM CDT Therapy [facility] Speech Therapy [address] [place] [phone] Valeri Mcfadden, PROBATE CLERK History of laryngectomy (Primary Dx); H/O laryngectomy; Prosthesis fitting; Laryngeal cancer (HCC) from Last 3 Months Allergies No known [...] 12/29/2022 Assessment & Plan (08/08/2024 12:21 PM AMERICANIZATION TEACHER): The patient had a new 7 mm [...] 2024. Assessment & Plan (07/06/2023 1:41 PM AMERICANIZATION TEACHER): The patient is scheduled for her CT [...] 11/01/2018 Assessment & Plan (08/08/2024 12:21 PM AMERICANIZATION TEACHER): The patient has an open laryngectomy stoma and she is able to cap it Assessment & Plan (01/11/2024 1:11 PM CDT): The patient does have an open stoma with a yo device. Assessment & Plan (07/06/2023 1:37 PM AMERICANIZATION TEACHER): The patient does have an open stoma with a yo device. Assessment & Plan (09/15/2022 3:16 PM CDT): Continues to follow with ENT. Patient was encouraged to keep upcoming appointment for trach adjustments Assessment & Plan (08/12/2021 1:30 PM AMERICANIZATION TEACHER): The patient continues to follow with Dr. Zarate. 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 Assessment & Plan (08/13/2020 1:42 PM AMERICANIZATION TEACHER): Patient continues to follow with Dr. Zarate [facility] 11/01/2018 Assessment & Plan (08/08/2024 12:21 PM AMERICANIZATION TEACHER): The patient continues to use Breztri on a p.r.n. basis. She is breathing comfortably. I did ask her to take her pediatric spacer device to her pharmacy in [place] dab it replaced since it is worn out. Assessment & Plan (01/11/2024 1:09 PM CDT): Patient continue to use Breztri two puffs twice a day. Assessment & Plan (07/06/2023 1:40 PM AMERICANIZATION TEACHER): I have sent an order for the [...] going to discuss the murmur with her community support professional later this week. Assessment & Plan (09/15/2022 3:16 PM CDT): At currently requiring inhaler Assessment & Plan (08/12/2021 1:31 PM AMERICANIZATION TEACHER): The patient is using Breztri 2 puffs b.i.d. and she is breathing comfortably. I did give her a hand written prescription for Prevnar 20. She will follow-up with me in 1 year. Assessment & Plan (08/13/2020 1:42 PM AMERICANIZATION TEACHER): The patient is not requiring any duo [...] Comments Blood Pressure 146/73 08/08/2024 12:03 PM AMERICANIZATION TEACHER Pulse 76 08/08/2024 12:03 PM AMERICANIZATION TEACHER Temperature 36.1 C (97 F) 08/08/2024 12:03 PM AMERICANIZATION TEACHER Respiratory Rate 18 08/08/2024 12:03 PM AMERICANIZATION TEACHER Oxygen Saturation 95% 08/08/2024 12:03 PM AMERICANIZATION TEACHER Inhaled Oxygen Concentration - - Weight 90.3 kg (199 lb) 08/08/2024 12:03 PM AMERICANIZATION TEACHER Height 165.1 cm (5' 5 ) 08/08/2024 12:03 PM AMERICANIZATION TEACHER Body Mass Index 33.12 08/08/2024 12:03 PM AMERICANIZATION TEACHER Plan of Treatment Not on file Insurance MEDICARE [facility] MEDICARE [id number] [place] [address] Advance Directives For more information, please contact: [phone] * Full Code (Latest Code Status on File) Date Activated Date Inactivated Comments 09/24/2022 12:31 AM 09/25/2022 6:05 PM * Full Code Date Activated Date Inactivated Comments 02/12/2021 1:05 PM 02/12/2021 7:10 PM * Full Code Date Activated Date Inactivated Comments 12/24/2017 10:30 PM 12/29/2017 6:41 PM Care Teams Conservation Of Resources Commissioner Relationship Specialty Start Date End Date Maribel Conteh MD [address] [facility] [address] [place] [address] PCP - General Family Medicine 08/13/20 Mihai Reyes MD [address] [place] [id number] 04/24/18
== END 2024-11-09 16:06 | disposition home or self-care (01) ==
PROVIDERS: PCP Family Medicine; Visit Provider Physician Assistant
DX: M79.89 Other specified soft tissue disorders (principal); M79.604 Pain in right leg
CPT/HCPCS: 93971

== ENCOUNTER 2025-05-27 13:45 | Outpatient (CLI) | payer MEDICARE, BC, SELFPAY ==
--- NOTE | ~2025-05-27 | DEXA_ITS ---
Bone Density Report Name: DAMIAN HAN Age: 79 Sex: Female Ethnicity: White Date of : 1945 Indication: osteopenia; height loss; cancer; seizure disorder; hysterectomy; Referring Provider: OLGA LLANOS Study: Bone densitometry was performed. Exam Date: May 27, 2025 Accession number: [id number] Bone Density: Region BMD T-score Z-score Classification AP Spine(L1, L4) 1.022 -0.1 2.5 Normal Femoral Neck (Left) 0.534 -2.8 -0.5 Osteoporosis Total Hip (Left) 0.766 -1.4 0.6 Osteopenia Femoral Neck (Right) 0.610 -2.2 0.1 Osteopenia Total Hip (Right) 0.791 -1.2 0.8 Osteopenia Total Hip Mean 0.778 -1.3 0.7 Osteopenia World Health Organization criteria for BMD impression classify patients as: Normal (T-score at or above -1.0), Osteopenia (T-score between -1.0 and -2.5), or Osteoporosis (T-score at or below -2.5). 10-year Fracture Risk: FRAX not reported because: Some T-score for Spine Total or Hip Total or Femoral Neck at or below -2.5 Previous Exams: -- Region Exam Age BMD T-score BMD Change BMD Change Date g/cm2 vs Baseline vs Previous -- AP Spine (L1,L4) 05/27/2025 79 1.022 -0.1 -9.1%* -9.1%* 10/22/2020 75 1.124 0.8 Total Hip(Left) 05/27/2025 79 0.766 -1.4 -13.9%# -13.9%# 10/22/2020 75 0.890 -0.4 Total Hip(Right) 05/27/2025 79 0.791 -1.2 -0.3%# -0.3%# 10/22/2020 75 0.793 -1.2 -- *Denotes significance at 95% confidence level, LSC for AP Spine = 0.022 g/cm2, LSC for Total Hip = 0.027 g/cm2 # Denotes dissimilar scan types or analysis methods Clinical Information Provided by Patient: Has used the following medications: Vitamin D, Calcium Has the following medical conditions: Any Seizure Disorders, Cancer, Hysterectomy, throat cancer Patient maximum height was 66 Menopause Age: 40 No regular weight bearing exercise Drinks caffeinated beverages Onset of menses at age 12 Number of children 2 Impression: The patient has osteoporosis, based on the Left Femoral Neck T-score. The BMD for the AP Spine (L1,L4) decreased, changing by -9.1% since the last DXA exam. Discussion: INCREASED RISK OF FRACTURE. BONE DENSITY IS UNDESIRABLY LOW AT ONE OR MORE SKELETAL SITES, CONSISTENT WITH POSTMENOPAUSAL OSTEOPOROSIS. This patient's lowest T-score meets the World Health Organization's (WHO) criteria for osteoporosis at one or more sites (T-score -2.5 or below). In untreated patients, the risk of osteoporotic fracture increases approximately two-fold for each 1.0 SD decrease in T-score. Low bone density is not the only risk factor for fracture; also consider factors such as patient's age, frailty or poor health, risk of falling, risk of injury, previous osteoporotic fracture, family history of osteoporosis, cigarette smoking, low body weight, etc. Not everyone with low bone mineral density has osteoporosis; osteomalacia and other metabolic bone disorders should also be considered. Patients who have osteoporosis should be evaluated for specific diseases and conditions (secondary causes) that may cause or contribute to bone loss. The [place] Association of Clinical Endocrinologists (AACE) and National Osteoporosis Foundation (NOF) recommend pharmacologic intervention for all postmenopausal women whose T-score is in this range. The patient should follow a healthful lifestyle (good nutrition with adequate calcium and vitamin D, and appropriate weight-bearing exercise). Follow-Up: Consider a repeat BMD and Vertebral Fracture Assessment (VFA) exam in 2 years or sooner if medically necessary, to reassess this patient's status. Reported by: NIYAH on 05/27/2025 2:18:00 PM. Reviewed, dictated and finalized at location A.
== END 2025-05-27 13:46 | disposition home or self-care (01) ==
LOC: MICIMG 13:46
PROVIDERS: PCP Family Medicine; Visit Provider Physician Assistant
DX: Z78.0 Asymptomatic menopausal state (principal); M85.852 Other specified disorders of bone density and structure, left thigh; M85.851 Other specified disorders of bone density and structure, right thigh; M81.0 Age-related osteoporosis without current pathological fracture
CPT/HCPCS: 77080